=== PATIENT | female | born 1995 | race Caucasian/White ===

== ENCOUNTER 2022-04-28 11:46 | Outpatient (CLI) | payer OTHER, SELFPAY ==
[2022-04-30 23:47] LABS: Prolactin 5.4 ng/mL (2.8-29.2)
[2022-05-01 03:45] LABS: Follicle Stimulating Hormone 4.7 IU/L
== END 2022-04-28 11:47 | disposition home or self-care (01) ==
PROVIDERS: Visit Provider Physician Assistant
DX: N91.2 Amenorrhea, unspecified (principal)
CPT/HCPCS: 83001; 84146; 84443

== ENCOUNTER 2022-04-30 06:58 | Outpatient (CLI) | payer OTHER, SELFPAY ==
--- NOTE | 2022-04-30 07:15 | CRLHL7_ITS ---
For Patients: As a result of the Century Cures Act, medical imaging exams and procedure reports are released immediately into your electronic medical record. You may view this report before your referring provider. If you have questions, please contact your health care provider. INDICATION: amenorrhea COMPARISON: none TECHNIQUE: 2D timmons scale and color Doppler images were acquired of the pelvis using a transabdominal and transvaginal approach. FINDINGS: Sonographic images demonstrate a normal size and smooth outer contour of the uterus. Uterus measures 7.6 cm in length by 3.5 cm in AP diameter by 5.0 cm in transverse dimension. The myometrium has a normal uniform echotexture. The endometrial lining measures 13 mm in composite thickness. The right ovary measures 5.2 x 2.4 x 2.1 cm in size and the left ovary measures 5.4 x 2.1 x 2.1 cm. Right ovarian volume 13.6 cc. Left ovarian volume 12.4 cc. Multiple ovarian follicles are present bilaterally. The ovaries demonstrate normal arterial and venous blood flow on color Doppler analysis. There are no suspicious fluid collections within the cul-de-sac. IMPRESSION: Endometrial thickness 13 millimeters. Numerous ovarian follicles bilaterally with mildly increased ovarian volumes could suggest polycystic ovarian syndrome. Dictated by Seth Morocho MD @ 04/30/2022 8:39:15 AM (Electronically Signed)
== END 2022-04-30 06:59 | disposition home or self-care (01) ==
PROVIDERS: Visit Provider Physician Assistant
DX: N91.2 Amenorrhea, unspecified (principal); R93.89 Abnormal findings on diagnostic imaging of other specified body structures; N83.02 Follicular cyst of left ovary; N83.01 Follicular cyst of right ovary
CPT/HCPCS: 76830; 76856

== ENCOUNTER 2022-06-15 08:55 | Outpatient (CLI) | payer OTHER, SELFPAY ==
[2022-06-15 12:35] LABS: HCG Quantitative* 28.36 mIU/mL
== END 2022-06-15 08:56 | disposition home or self-care (01) ==
PROVIDERS: Visit Provider Advanced Practice Midwife
DX: O20.9 Hemorrhage in early pregnancy, unspecified (principal)
CPT/HCPCS: 84702; 86850

== ENCOUNTER 2022-06-17 16:29 | Outpatient (CLI) | payer OTHER, SELFPAY ==
[2022-06-17 10:43] LABS: HCG Quantitative* 87.31 mIU/mL
== END 2022-06-17 16:30 | disposition home or self-care (01) ==
PROVIDERS: Visit Provider Advanced Practice Midwife
DX: O20.9 Hemorrhage in early pregnancy, unspecified (principal)
CPT/HCPCS: 84702

== ENCOUNTER 2022-06-18 15:51 | Outpatient (CLI) | payer OTHER, SELFPAY ==
--- NOTE | 2022-06-18 16:00 | CRLHL7_ITS ---
For Patients: As a result of the Century Cures Act, medical imaging exams and procedure reports are released immediately into your electronic medical record. You may view this report before your referring provider. If you have questions, please contact your health care provider. INDICATION: Vaginal bleeding, normal HCG rise, rule out ectopic. LMP 05/19/2022. COMPARISON: Pelvic ultrasound 04/30/2022. TECHNIQUE: 2D timmons scale and color Doppler images were acquired of the pelvis using a transvaginal approach. FINDINGS: Sonographic images demonstrate a normal size and smooth outer contour of the uterus. The uterus is anteverted in position. The uterus measures 6.8 cm in length by 3.3 cm in AP diameter by 5.3 cm in transverse dimension. The myometrium has uniform echotexture. The endometrial lining measures 10 mm in composite thickness. No intrauterine gestational sac identified. The right ovary measures 3.9 x 1.7 x 2.9 cm in size and the left ovary measures 5.7 x 2.1 x 2.9 cm in size. Multiple small follicles in both ovaries. No suspicious adnexal mass. Trace free fluid in the pelvic cul-de-sac is likely physiologic. IMPRESSION: 1. No intrauterine gestational sac or suspicious adnexal mass. Correlate with serum beta HCG levels and follow-up imaging as clinically indicated. 2. Multiple small follicles in both ovaries. Exam otherwise unremarkable. Dictated by Tamra Multani MD @ 06/19/2022 2:35:01 AM (Electronically Signed)
== END 2022-06-18 15:52 | disposition home or self-care (01) ==
LOC: US 15:52
PROVIDERS: Visit Provider Advanced Practice Midwife
DX: N93.9 Abnormal uterine and vaginal bleeding, unspecified (principal); N83.02 Follicular cyst of left ovary; N83.01 Follicular cyst of right ovary
CPT/HCPCS: 76817

== ENCOUNTER 2022-11-06 12:45 | Outpatient (CLI) | payer OTHER, SELFPAY ==
--- NOTE | 2022-11-06 13:00 | CRLHL7_ITS ---
For Patients: As a result of the Century Cures Act, medical imaging exams and procedure reports are released immediately into your electronic medical record. You may view this report before your referring provider. If you have questions, please contact your health care provider. INDICATION: Dating and viability. LMP 09/10/2022. COMPARISON: None. TECHNIQUE: Real-time timmons-scale imaging of the pelvis was performed. FINDINGS: Sonographic imaging demonstrates a single living intrauterine gestation. The embryo has a regular cardiac rate measuring 168 beats per minute. The embryo`s crown-rump length measurement of 1.8 cm corresponds to a gestational age of 8 weeks 2 days with a sonographic due date of 06/16/2023. There is a normal-appearing yolk sac. The placenta has not yet developed. There is a 2.2 x 0.9 x 2.3 cm subchorionic hemorrhage in the left uterine fundus. The right ovary measures 4.4 x 1.9 x 3.3 cm and the left ovary measures 3.3 x 1.9 x 2.1 cm. There is a 2.4 x 1.8 x 2.1 cm isoechoic lesion in the right ovary which may represent a corpus luteum or hemorrhagic cyst. No free fluid in the cul-de-sac. IMPRESSION: 1. Single living intrauterine gestation with crown rump length 1.8 cm which corresponds to a gestational age of 8 weeks 2 days with a sonographic due date of 06/16/2023. 2. The clinical gestational age by LMP is 8 weeks 1 day. 3. Small to moderate subchorionic hemorrhage in the left uterine fundus. 4. Small amount of fluid in the lower uterine segment near the internal os. No definite cervical funneling. Dictated by Tamra Multani MD @ 11/07/2022 8:43:14 PM (Electronically Signed)
== END 2022-11-06 12:46 | disposition home or self-care (01) ==
PROVIDERS: Visit Provider Registered Nurse
DX: Z34.91 Encounter for supervision of normal pregnancy, unspecified, first trimester (principal); O20.9 Hemorrhage in early pregnancy, unspecified; Z3A.08 8 weeks gestation of pregnancy
CPT/HCPCS: 76817; 86592; 86703; 86762; 86787; 86803; 86850; 86900; 86901; 87086; 87340; 87491; 87591

== ENCOUNTER 2022-11-07 10:26 | Emergency (ER) | payer OTHER, SELFPAY ==
[2022-11-07 10:35] VITALS: BP 132/81; PULSE 72; RESP 16; TEMP 36.9; O2SAT 99; BMI 30.9
--- NOTE | 2022-11-07 11:05 | ED.GENADULT ---
HPI - General Adult General Chief complaint: OB/Uterine Contractions Stated complaint: 8 wks , bleeding Time Seen by Provider: 11/07/22 10:52 History of Present Illness HPI narrative: This 27-year-old female is 8 weeks with her 3rd . She has a 43-bfien-vbc child and then had a miscarriage last fall. She comes in today because she reports some light spotting and very mild cramping. She states that she is feeling well otherwise. She had an ultrasound for her 1st OB appointment yesterday. Related Data Home Medications Medication Instructions Recorded Confirmed docosahexaenoic acid 200 mg mg PO 04/28/22 09/16/22 capsule ( DHA) Allergies Allergy/AdvReac Type Severity Reaction Status Date / Time No Known Allergies Allergy Unknown Verified 11/07/22 10:39 Review of Systems Status of ROS: Reports: 10 or more systems reviewed and unremarkable except as noted in History and below Narrative: Constitutional: No fevers, no weight gain or loss. Eyes: No discharge. No vision changes. HENT: No congestion, no sore throat, no ear pain. Cardiovascular: No chest pain, no palpitations. Respiratory: No shortness of breath, no wheezes, no cough. Gastrointestinal: No vomiting, no diarrhea. Mild abdominal cramping. Genitourinary: No dysuria, no hematuria. Vaginal spotting. Musculoskeletal: Normal range of motion. Skin: No rashes, no pruritis. Neurological: No dizziness, weakness, sensory change, speech change. Endo/Heme/Allergies: No bruising or bleeding. No polydipsia. Pysch: no suicidality, no anxiety, no insomnia. All other systems reviewed and are negative. 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 HEENT: Normocephalic, atraumatic. Neck: Normal range of motion. Nontender. Supple. Heart: Regular. No murmurs. Normal rate. Intact distal pulses. Lungs: Clear to auscultation. No chest discomfort. No wheezes, rhonchi, or rales. Abdomen: Normal bowel sounds. Nontender. No rebound tenderness. Genitalia: Deferred. Back: No midline tenderness. Normal range of motion. Extremities: Normal range of motion. No injury. Skin: Intact. No rash. Warm. No erythema or pallor. Neurologic: No altered sensation. No weakness. Alert and oriented. Psychiatric: No suicidality. No anxiety or depression. No insomnia. Nursing notes and vitals signs are reviewed. Const: Vital Signs, click to edit/add: Vital Signs - 24 hr 11/07/22 10:35 Temperature 98.5 F Pulse Rate [Left P ulse Oximeter] 72 Respiratory Rate 16 Blood Pressure [Ri ght Upper Arm] 132/81 Pulse Oximetry 99 Oxygen Delivery Me thod Room Air Course Vital Signs Vital signs: Initial Vital Signs Temperature 98.5 F 11/07/22 10:35 Temperature Source Temporal Artery Scan 11/07/22 10:35 Pulse Rate 72 11/07/22 10:35 Respiratory Rate 16 11/07/22 10:35 Blood Pressure 132/81 11/07/22 10:35 Blood Pressure Mean 98 11/07/22 10:35 Blood Pressure Position Sitting 11/07/22 10:35 Pulse Oximetry 99 11/07/22 10:35 Oxygen Delivery Method 11/07/22 10:35 Vital Signs Temperature 98.5 F 11/07/22 10:35 Pulse Rate 72 11/07/22 10:35 Respiratory Rate 16 11/07/22 10:35 Blood Pressure 132/81 11/07/22 10:35 Pulse Oximetry 99 11/07/22 10:35 Oxygen Delivery Method 11/07/22 10:35 Temperature 98.5 F 11/07/22 10:35 Pulse Rate 72 11/07/22 10:35 Respiratory Rate 16 11/07/22 10:35 Blood Pressure 132/81 11/07/22 10:35 Pulse Oximetry 99 11/07/22 10:35 Oxygen Delivery Method 11/07/22 10:35 Medical Decision Making MDM Narrative Medical decision making narrative: This patient comes in with light spotting and some mild cramping. She states that she has had a miscarriage and understands that these symptoms are not anywhere typical of an obvious miscarriage. She is most likely having some first-trimester spotting. She states that she is Rh negative so an order is placed for RhoGAM. I did use bedside ultrasound to at her by transabdominal view. There is clearly an intra uterine . I was able also to see a heartbeat. This was very reassuring to the patient. Discharge Plan Discharge Clinical Impression: First trimester Patient Disposition: Home, Self-Care Condition: Unchanged Additional Instructions: Continue current plans. Return if worsening symptoms happen. Follow up with MD otherwise as needed. Prescriptions: No Action DHA 200 mg capsule PO Follow Up/Referrals: Provider,Not a Local [Primary Care Provider] - Stand Alone Forms: [employer] Info Instructions Procedures Ultrasound Other exam #1: Anatomical areas examined: First trimester . Indications: Vaginal spotting and mild cramping. Description/findings: Intrauterine . Heartbeat is faintly detected. Impression: Normal 1st trimester intrauterine .
[2022-11-07 12:09] VITALS: BP 113/72; PULSE 69; RESP 18; O2SAT 99
== END 2022-11-07 12:10 | disposition home or self-care (01) ==
PROVIDERS: Emergency Provider Emergency Medicine Emergency Medical Services
DX: O20.9 Hemorrhage in early pregnancy, unspecified (principal); Z3A.08 8 weeks gestation of pregnancy
CPT/HCPCS: 36415; 76815; 85461; 99284; J2791

== ENCOUNTER 2023-01-28 08:24 | Outpatient (CLI) | payer OTHER, SELFPAY ==
--- NOTE | 2023-01-28 08:45 | CRLHL7_ITS ---
For Patients: As a result of the Century Cures Act, medical imaging exams and procedure reports are released immediately into your electronic medical record. You may view this report before your referring provider. If you have questions, please contact your health care provider. INDICATION: Evaluate anatomy. COMPARISON: 11/06/2022 TECHNIQUE: Real time timmons scale imaging of the fetus was performed as well as color Doppler analysis of the umbilical vessels. FINDINGS: Sonographic imaging demonstrates a single living intrauterine gestation. Fetus demonstrates a regular cardiac rate of 137 beats per minute. Fetus has a variable position. The placenta lies anteriorly without evidence of placenta previa. The edge of the placenta is located 2.8 cm from the internal cervical os. Amniotic fluid volume appears normal. Single deepest vertical pocket: 5.5 cm. The cervix is closed and measures 4.2 cm in length. The composite ultrasound gestational age is calculated at 20 weeks 4 days with an estimated sonographic due date of 06/13/2023. The estimated weight is 378 grams which lies at the 87th %. The following biometric measurements were obtained: Biparietal diameter: 4.6 cm/20 weeks 0 days 49th% Head circumference: 17.9 cm/20 weeks 2 days 57th% Abdominal circumference: 16.3 cm/21 weeks 3 days 85th% Femur length: 3.3 cm/20 weeks 2 days 54th% The HC/AC ratio measures: 1.10 range (1.07-1.25) On anatomic survey, there is a normal appearance of the cerebral ventricles, cavum septi pellucidi, cisterna magna and cerebellum. The nose, lips, and facial profile appear normal. The cervical, thoracic and lumbar spine are well visualized and appear normal. There is a normal four-chamber heart view and the left and right ventricular outflow tracts appear normal. The diaphragm and stomach appear normal. The kidneys and bladder also appear normal. There is a normal three-vessel cord and cord insertion site. The four extremities appear normal. IMPRESSION: Normal OB ultrasound exam with concordance of clinical and sonographic dating. No intrinsic abnormalities noted on anatomic survey. Dictated by Seth Morocho MD @ 01/28/2023 11:16:39 AM (Electronically Signed)
== END 2023-01-28 08:25 | disposition home or self-care (01) ==
PROVIDERS: Visit Provider Physician Assistant
DX: Z34.92 Encounter for supervision of normal pregnancy, unspecified, second trimester (principal); Z3A.20 20 weeks gestation of pregnancy
CPT/HCPCS: 76805

== ENCOUNTER 2023-03-26 09:10 | Outpatient (CLI) | payer OTHER, SELFPAY | END 2023-03-26 09:11 | disposition home or self-care (01) | PROVIDERS: Visit Provider Obstetrics & Gynecology | DX: O26.899 Other specified pregnancy related conditions, unspecified trimester (principal); Z67.91 Unspecified blood type, Rh negative; Z3A.28 28 weeks gestation of pregnancy | CPT/HCPCS: 86592; 86850; J2791 ==

== ENCOUNTER 2023-04-08 14:46 | Outpatient (CLI) | payer OTHER, SELFPAY ==
[2023-04-08] VITALS (8 sets, daily range): BP systolic 121; BP diastolic 70; PULSE 100–112; TEMP 37.3; O2SAT 94–96
--- NOTE | 2023-04-08 15:48 | CRLHL7_ITS ---
For Patients: As a result of the Cures Act, medical imaging exams and procedure reports are released immediately into your electronic medical record. You may view this report before your referring provider. If you have questions, please contact your health care provider. INDICATION: Abdominal pain. Nausea. COMPARISON: Ob ultrasound from 01/28/2023 FINDINGS: Transabdominal examination of the is performed. A single intrauterine gestation is seen in breech presentation with regular cardiac activity at 157 beats per minute. The placenta is anterior and is free of the cervical os. The placental grade is 0 and the amniotic fluid volume is increased, consistent polyhydramnios. The DVP is elevated at 9.8 cm. The JOSÉ MIGUEL is also elevated at 28.6 cm. The biophysical profile score is 8/8 with no points off. IMPRESSION: Single intrauterine gestation in breech presentation with regular cardiac activity. New polyhydramnios with elevation of both the DP and JOSÉ MIGUEL. Normal biophysical profile score of 8/8. Dictated by Josue Lamb MD @ 04/08/2023 5:32:52 PM (Electronically Signed)
[2023-04-08] MEDS: ACETAMINOPHEN 500 MG TABLET 1000 MG PO (16:01)
[2023-04-08] MEDS: ONDANSETRON ODT 4 MG TAB PO (16:02)
[2023-04-08] MEDS: MAG HYDROX/ALUMINUM HYD/SIMETH 30 ML ORAL.SUSP PO (16:02)
--- NOTE | 2023-04-08 17:33 | PM.OBLDTN ---
OB - Triage/Final Diagnosis Visit Information Time Seen by Provider: 04:50 Date Seen: 04/08/23 Date of evaluation: 04/08/23 Narrative: HPI: Linda is a 27 year old 3 para 1011 at 30 and 0/7 weeks gestation by last menstrual period consistent with a 1st trimester ultrasound, who presents with viral syndrome symptoms including fatigue, body aches, nausea without vomiting, elevated temperature that started approximately 4 days ago. The nausea and body aches did not occur her until this morning. She presented to the center for evaluation due to decreased movement. She has not eaten anything today and has only been able to drink small sips of water. She has not had any episodes of emesis. Once she got to the center her baby became much more active. She received Zofran 4 mg ODT, 1 tbsp of Maalox and to tablets of extra-strength Tylenol. She was sent to ultrasound for a biophysical profile because the baby was so active that it was difficult to get an accurate heart rate tracing. BPP: Breech, S DP 10.2 cm, JOSÉ MIGUEL 28.6 cm = new onset mild polyhydramnios. Her 1 hour GTT was 106 on 03/26/2023. She had a normal survey at her 20 week ultrasound. A referral to [facility] physicians was placed. I reviewed recommendations for weekly BPP until delivery for polyhydramnios. There is a broad differential for what can cause polyhydramnios and a few of these were reviewed with the patient today. In terms of doing genetic evaluation and/or torch titers, I will await the [facility] recommendations before doing these tests. The patient states that she felt much better after the dose of Zofran. She would like some Zofran sent to her pharmacy so that she can use at home if needed. She has her next visit appointment on Wednesday04/12/[address] Perdomo and I ordered a BPP to be done prior to that appointment. Linda should get a phone call tomorrow morning to help her get this scheduled. Will even know with my veneer sample maker to help her with this. 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
--- NOTE | 2023-04-09 20:12 | PC.OBNST ---
NST Note NST Note Start: 04/08/23 15:03 Freq: ONCE Status: Discharge Protocol: Document 04/08/23 17:30 SD (Rec: 04/09/23 20:12 SD [id number]) NST Note 3 Para (# of births) 1 EDC 06/17/23 Gestational Age In Weeks & Days 30 Weeks & 1 Days Patient Presented with Complaint(s) of Pain,Nausea and vomiting,Other If Pain, describe location Body aches Other Complaints Chills Reactive Yes Appropriate for Gestational Age Yes RN Tayler RN Date 04/08/23 Reactive Yes Appropriate for Gestational Age Yes FABIANA Jnae RN Date 04/08/23 OB NST charge Yes Complete NST Note via Write Note Yes The provider's electronic signature indicates the NST is reactive/appropriate for gestational age. *Note to provider: If an addendum is required, open the patient's chart and click on the note under the Nurse/Allied Health tab.
== END 2023-04-08 17:20 | disposition home or self-care (01) ==
LOC: OB OUT 14:47 → OB 14:47
PROVIDERS: Visit Provider Obstetrics & Gynecology
DX: O21.2 Late vomiting of pregnancy (principal); Z3A.30 30 weeks gestation of pregnancy
CPT/HCPCS: 59025; 76819; 99213; A9270

== ENCOUNTER 2023-04-14 10:36 | Outpatient (CLI) | payer OTHER, SELFPAY | END 2023-04-14 10:37 | disposition home or self-care (01) | PROVIDERS: Visit Provider Obstetrics & Gynecology | DX: O40.3XX0 Polyhydramnios, third trimester, not applicable or unspecified (principal); Z3A.30 30 weeks gestation of pregnancy | CPT/HCPCS: 87040 ==

== ENCOUNTER 2023-04-20 07:58 | Outpatient (CLI) | payer OTHER, SELFPAY ==
--- NOTE | 2023-04-20 08:15 | CRLHL7_ITS ---
For Patients: As a result of the Century Cures Act, medical imaging exams and procedure reports are released immediately into your electronic medical record. You may view this report before your referring provider. If you have questions, please contact your health care provider. INDICATION: POLYHYDRAMNIOS COMPARISON: 04/08/2023 TECHNIQUE: Real time timmons scale imaging of the fetus was performed. Without non-stress testing. FINDINGS: Sonographic imaging demonstrates a single living intrauterine gestation. Fetus demonstrates a regular cardiac rate of 137 beats per minute. Fetus has a vertex position. The amniotic fluid volume appears increased and there is a single deepest pocket measurement of 8.8 cm. JOSÉ MIGUEL 27.7 cm. The fetus was active and demonstrated normal breathing movements. There was normal flexion and extension of the trunk and extremities. IMPRESSION: Normal biophysical profile score of 8 out of 8. Polyhydramnios. JOSÉ MIGUEL 27.7 cm. Dictated by Seth Morocho MD @ 04/20/2023 10:43:37 AM (Electronically Signed)
== END 2023-04-20 07:59 | disposition home or self-care (01) ==
LOC: US 07:59
PROVIDERS: Visit Provider Obstetrics & Gynecology
DX: O40.3XX0 Polyhydramnios, third trimester, not applicable or unspecified (principal)
CPT/HCPCS: 76819

== ENCOUNTER 2023-05-17 08:37 | Outpatient (CLI) | payer OTHER, SELFPAY ==
--- NOTE | 2023-05-17 09:15 | CRLHL7_ITS ---
For Patients: As a result of the Century Cures Act, medical imaging exams and procedure reports are released immediately into your electronic medical record. You may view this report before your referring provider. If you have questions, please contact your health care provider. INDICATION: Polyhydramnios. TECHNIQUE : Technique real-time timmons scale imaging of the fetus was performed. Without nonstress testing. Comparison : April 20, 2023. April 08, 2023. FINDINGS : Sonographic imaging demonstrates a single living intrauterine gestation. Vertex presentation. Anterior placenta. heart rate 143 beats per minute. The amniotic fluid volume appears increased and there is an amniotic fluid volume index of 21 cm, most recently 27.7 cm. The fetus was active and demonstrated normal breathing movements. There was normal flexion and extension of the trunk and extremities. IMPRESSION: 1. Normal biophysical profile pulse score of 8/8. 2. Polyhydramnios. Amniotic fluid volume index 21 cm, previously 27.7 cm. Dictated by Shawn Cage MD @ 05/17/2023 10:12:17 AM (Electronically Signed)
== END 2023-05-17 08:38 | disposition home or self-care (01) ==
PROVIDERS: Visit Provider Obstetrics & Gynecology
DX: O40.3XX0 Polyhydramnios, third trimester, not applicable or unspecified (principal)
CPT/HCPCS: 76819; 87081; 87653

== ENCOUNTER 2023-06-04 07:09 | Outpatient (CLI) | payer OTHER, SELFPAY ==
--- NOTE | 2023-06-04 07:15 | CRLHL7_ITS ---
For Patients: As a result of the Century Cures Act, medical imaging exams and procedure reports are released immediately into your electronic medical record. You may view this report before your referring provider. If you have questions, please contact your health care provider. INDICATION: POLYHYDRAMNIOS COMPARISON: 05/17/2023 TECHNIQUE: Real time timmons scale imaging of the fetus was performed. Without non-stress testing. FINDINGS: Sonographic imaging demonstrates a single living intrauterine gestation. Fetus demonstrates a regular cardiac rate of 126 beats per minute. Fetus has a vertex position. The amniotic fluid volume appears normal and there is a single deepest pocket measurement of 6.0 cm. The fetus was active and demonstrated normal breathing movements. There was normal flexion and extension of the trunk and extremities. IMPRESSION: Normal biophysical profile score of 8 out of 8. Dictated by Seth Morocho MD @ 06/04/2023 10:39:03 AM (Electronically Signed)
== END 2023-06-04 07:10 | disposition home or self-care (01) ==
LOC: US 07:10
PROVIDERS: Visit Provider Obstetrics & Gynecology
DX: O40.3XX0 Polyhydramnios, third trimester, not applicable or unspecified (principal)
CPT/HCPCS: 76819

== ENCOUNTER 2023-06-10 15:47 | Inpatient (IN) | payer OTHER, SELFPAY ==
[2023-06-10 16:06] VITALS: PULSE 88; PULSE 89; O2SAT 94; O2SAT 96
[2023-06-10 16:10] VITALS: BP 133/82; PULSE 90
[2023-06-10 16:11] VITALS: PULSE 82; O2SAT 96
[2023-06-10 16:20] VITALS: BMI 35.5
[2023-06-10 16:24] VITALS: TEMP 37
[2023-06-10 17:35] LABS: Basophils Absolute Auto 0.02 K/uL (0.00-0.30); Basophils Percent Auto 0.2 % (0.0-3.0); Eosinophils Absolute Auto 0.05 K/uL (0.00-0.50); Eosinophils Percent Auto 0.6 % (0.0-7.0); Hematocrit 35.4 % (33.0-51.0); Hemoglobin* 11.5 gm/dL (12.0-16.0); Immature Granulocytes Abs Auto 0.08 K/uL (0.00-0.30); Immature Granulocytes Pct Auto 0.9 %; Lymphocytes Percent Auto 19.6 % (20-44); Mean Corpuscular HGB Conc 33 gm/dL (32-36); Mean Corpuscular Hemoglobin 27 pg (26-34); Mean Corpuscular Volume 82 fL (80-100); Monocytes Percent Auto 7.6 % (0.0-11.0); Neutrophils Absolute Auto 6.44 K/uL (1.7-7.0); Neutrophils Percent Auto 71.1 % (42.0-72.0); Platelet Count* 200 K/uL (140-440); RDW Coefficient of Variation % 13.4 % (11.5-15.5); Red Blood Count 4.34 m/uL (4.00-5.20); White Blood Count* 9.05 K/uL (4.50-11.00)
[2023-06-10 17:38] LABS: Slide Review Reflex No
[2023-06-10] MEDS: miSOPROStoL 25 MCG/0.25 TABLET VAGINAL ×2 (17:49→22:09)
[2023-06-10 21:57] VITALS: BP 132/80; PULSE 77; RESP 16; TEMP 36.6
[2023-06-11] VITALS (53 sets, daily range): BP systolic 91–154; BP diastolic 46–115; PULSE 49–108; RESP 6–18; TEMP 36.6–37.1; O2SAT 92–100
[2023-06-11] MEDS: miSOPROStoL 25 MCG/0.25 TABLET VAGINAL (02:09)
[2023-06-11] MEDS: CALCIUM CARBONATE 500 MG CHEW PO (02:11)
[2023-06-11] MEDS: LACTATED RINGERS 1000 ML 1,000 ML 1200 ML IV ×2 (05:25→06:18)
[2023-06-11] MEDS: PHENYLEPHRINE 100 MCG/ML SYRINGE IVP ×4 (06:04→06:24)
[2023-06-11] MEDS: ONDANSETRON 2 MG/ML inj 4 MG IV (06:07)
[2023-06-11] MEDS: SODIUM CHLORIDE 0.9 % (FLUSH) 10 ML SYRINGE IVF (06:08)
--- NOTE | 2023-06-11 07:14 | P.ANBPRC_ITS ---
[facility] [place] (Updated 04/14/23 @ 10:28 by Lacey Zhao MD) Polyhydramnios affecting in third trimester ?O40.3XX0 - Polyhydramnios, third trimester, not applicable or unspecified (ICD-10) Secondary amenorrhea ?N91.1 - Secondary amenorrhea (ICD-10) Anxiety ?F41.9 - Anxiety disorder, unspecified (ICD-10) Normal spontaneous vaginal delivery ?O80 - Encounter for full-term uncomplicated delivery (ICD-10) History of ovarian cyst (2010) ?Z87.42 - Personal history of other diseases of the female genital tract (ICD-10) Surgical History Hx of cholecystectomy ?Z90.49 - Acquired absence of other specified parts of digestive tract (ICD- 10) History of tonsillectomy and adenoidectomy (1998) ?Z90.89 - Acquired absence of other organs (ICD-10) History of myringotomy ?Z98.890 - Other specified postprocedural states (ICD-10) Family History Paternal Grandfather Heart disease Father High blood pressure 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: , 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, 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, 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, 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 What is your current living situation?: I presently have a place to live Problems where you live: no known problems In the past 12 months, utilities in danger of being shut off: no In the past 12 mos, have been you worried that your food would run out before you had money to buy more?: never true In the past 12 mos, the food you bought just didn't last and you didn't have money to buy more?: never true Smoking Status: Never smoker How often do you have a drink containing alcohol: never AUDIT-C Alcohol total score: 0 Non-prescribed substance use: denies use How often does anyone, including family, friends and others, physically hurt you : never How often does anyone, including family, friends and others, insult or talk down to you: never How often does anyone, including family, friends and others, threaten you with harm: never How often does anyone, including family, friends and others, scream or curse at you: never Little interest or pleasure in doing things: not at all Feeling down, depressed, or hopeless: not at all Meds Home Medications and Allergies Home Medications Medication Instructions Recorded Confirmed Type docosahexaenoic acid 200 mg 200 mg PO DAILY PRN 04/28/22 06/10/23 History capsule ( DHA) calcium carbonate 200 mg calcium 200 mg PO BID 01/28/23 06/10/23 History (500 mg) chewable tablet (Tums) Allergies Allergy/AdvReac Type Severity Reaction Status Date / Time No Known Allergies Allergy Unknown Verified 06/03/23 15:38 Results Labs Labs: Laboratory Results - last 24 hr 06/10/23 17:24 WBC 9.05 RBC 4.34 Hgb 11.5 L Hct 35.4 MCV 82 MCH 27 MCHC 33 RDW Coeff of Shawn 13.4 Plt Count 200 Neut % (Auto) 71.1 Lymph % (Auto) 19.6 L [place] % (Auto) 7.6 Eos % (Auto) 0.6 Baso % (Auto) 0.2 Neut # (Auto) 6.44 Lymph # (Auto) 1.80 [place] # (Auto) 0.70 Eos # (Auto) 0.05 Baso # (Auto) 0.02 Abs Immat Gran (auto) 0.08 Imm/Tot Granulo (auto) 0.9 Blood Type A Negative Antibody Screen POSITIVE Vital Signs Vital Signs: Last Vital Signs Temp 98.3 F 06/11/23 05:41 Pulse 80 06/11/23 06:59 Resp 18 06/11/23 05:41 BP 125/80 06/11/23 06:59 Pulse Ox 99 06/11/23 06:31 Weight: 93.894 kg Height: 162.56 cm Anesthesia Procedures Epidural Insertion Patient Location: OB Start Time: 05:40 Stop Time: 06:10 Start Date: 06/11/23 Stop Date: 06/11/23 Reason for Block: procedure for pain Patient Position: sitting Performed By: Kelsie Daily Preanesthetic Checklist: IV checked, risks and benefits discussed, monitors and equipment checked, pre-op evaluation, timeout performed and anesthesia consent Prep: chlorhexidine gluconate Monitoring: blood pressure monitoring, continuous pulse oximetry and heart rate Approach: midline Vertebral Space: lumbar (1-5) Epidural Technique: FRANKY saline Needle Type: Tuohy needle Injection Technique: continuous catheter (continuous catheter) Needle gauge: 17 Needle Length (cm): 10 cm Needle Insertion Depth (cm): 8 Catheter Gauge: 19 Catheter Type: multi-orifice Catheter at skin depth (cm): 15 Test Dose Result: negative and lidocaine 1.5% with epinephrine 1 to 200,000 Events: cerebrospinal fluid
[2023-06-11] MEDS: LACTATED RINGERS 1000 ML 1,000 ML 125 ML IV (07:21)
[2023-06-11] MEDS: LIDOCAINE 2% (PF) 5 ML VIAL EPIDURAL (07:27)
[2023-06-11] MEDS: OXYTOCIN 30 unit/500 ML in NS 30 UNIT/500 ML BAG 300 UNIT IVPB (08:08)
--- NOTE | 2023-06-11 08:28 | W.PM.OBVAGDE ---
OB Procedure Vag Delivery Mother Details Mother Details: The patient is a 27 year-old, 3, Para 1, admitted on 06/10/23 at 39 1/7 Days gestation. : 3 Para: 2 Weeks Gestation: 39.1 Admission Date: 06/10/23 Additional Details Amniotic Membrane Status: SROM Amniotic Membrane Rupture Date: 06/11/23 Amniotic Membrane Rupture Time: 06:31 Amniotic Membrane Fluid Description: Clear Analgesia/Anesthesia Type: Spinal Waterbirth: No Pitcoin: No Intrapartal Events: Labor Induction Induction Method: per misoprostol protocol Labor Onset: 05:08 Complete: 06:43 Pushin:09 Heart: heart tones during second stage were category 2. Deep decelerations down to the 70s while pushing with slow recovery, but did have acceleration with scalp stimulation. Delivery Details Delivery Date: 06/11/23 Delivery Time: 08:05 Route of delivery: Infant Gender: Male Viability: Alive; Heart Rate Present Position at Delivery: OA Delivery Details: Delivered over intact perineum via spontaneous vaginal delivery. Nuchal cord identified and as planned, clamped and cut at perineum. Infant was placed on maternal abdomen. Nose and mouth were bulb suctioned.? weight pending. 1 Minute Interval Total Score: 7 5 Minute Interval Total Score: 9 Additional Details Shoulder Dystocia: No Placenta Delivery Time: 08:10 Placental Delivery Description: Spontaneous Delivery repair: Vicryl Procedure Done: Global Blood Loss: 200 Laceration: Vaginal - 1st Degree Episiotomy Description: None Blood Loss Measurement Type: QBL Bakri Used: No Sponge/Need Count Correct: Yes Cord Vessel Description: 3 Vessels and Nuchal Cord (clamped and cut at perineum.) Event Summary Status: Mother and were stable after delivery. Disposition: floor
[2023-06-11] MEDS: ACETAMINOPHEN 500 MG TABLET 1000 MG PO ×2 (09:16→16:10)
[2023-06-11 11:28] LABS: Hematocrit 35.1 % (33.0-51.0); Hemoglobin* 11.4 gm/dL (12.0-16.0); Mean Corpuscular HGB Conc 33 gm/dL (32-36); Mean Corpuscular Hemoglobin 27 pg (26-34); Mean Corpuscular Volume 81 fL (80-100); Platelet Count* 189 K/uL (140-440); Red Blood Count 4.31 m/uL (4.00-5.20); White Blood Count* 13.87 K/uL (4.50-11.00)
[2023-06-11 11:31] LABS: Slide Review Reflex No
[2023-06-11 11:44] LABS: Aspartate Amino Transferase* 38 U/L (12-35); Creatinine* 0.5 mg/dL (0.5-1.5); Est. Creatinine Clearance* 147.23; Estimated Glomerular Filt Rate 133 ml/min
[2023-06-11 11:45] LABS: Alanine Aminotransferase* 27 U/L (4-35); Blood Urea Nitrogen* 9 mg/dL (5-24)
[2023-06-11] MEDS: IBUPROFEN 600 MG TABLET PO ×2 (12:46→19:59)
[2023-06-12 00:20] VITALS: BP 115/72; PULSE 64; RESP 17; TEMP 36.8
[2023-06-12] MEDS: ACETAMINOPHEN 500 MG TABLET 1000 MG PO (00:36)
--- NOTE | 2023-06-12 00:46 | PC.NURSE ---
At midnight assessment, epidural catheter dressing was found to be rolled up, exposing catheter insertion site. RN asked patient if she was feeling any numbness or tingling in lower extremities; negative. RN promptly placed Tegaderm dressing over site and reported finding to rehabilitation specialist.
[2023-06-12 04:05] VITALS: BP 118/79; PULSE 67; RESP 16; TEMP 36.6
--- NOTE | 2023-06-12 07:25 | P.OBPN_ITS ---
OB - PN:Subj Subjective Date Seen: 06/12/23 Interval history: Linda is a 27-year-old G3 now P2 0-0-1-2 woman who is status post normal spontaneous vaginal delivery at 39 weeks, 1 day's gestation on 06/11/2023. She was diagnosed with preeclampsia without severe features during her intrapar romina course. Ob problem list: : Tin. Son: Rem. Baby: Boy! 1. H/o umbilical cord avulsion immediately after first delivery. 2. H/o genital HSV Rec. prophylactic tx at 36 weeks: Valacyclovir 500mg PO BID 3. H/o anxiety. PHQ 2, PETER 1 at first OB. Not taking meds. Doing really well! 4. Possible Listeria exposure mid-February 2023: was notified of a recall for a food product she had already eaten at the end of February. Viral syndrome 04/04/23-04/11/23: Myalgias, nausea without vomiting, fatigue, headache, mildly elevated temperature (99.2? F) Blood culture ordered on 04/14/2023 to assess for possible listeriosis: NO GROWTH AFTER 48HRS. ACOG: offer blood culture if the patient develops viral symptoms w/in 2 months of exposure. Increases risk for stillbirth and listeriosis and . 5. Rh negative status. Spotting 11/07: rhogam received in ED. 6. Polyhydramnios diagnosed on 04/08/23 Center triage for viral syndrome (fatigue, nausea, body aches) and decreas ed movement: 30wk1d. BPP done b/c the fetus was so active it was difficult to trace: Breech, BPP 05/04. SDP 10.2, JOSÉ MIGUEL 28.6 04/12/23: LVL 2 [facility] : Vtx. JOSÉ MIGUEL 32.7. SDP: 11.0. EFW 1714gm, 3#12oz = 58%. Hypoplastic nasal bone. No other anomalies noted. Cell free DNA test collected. USN for EFW and BPP scheduled w/ MFM in 4 weeks (about 05/13/23) Low risk NIPT Weekly BPP ordered. Has BPP w/ EFW in 4 wks at the [facility] office. BPP on 05/17/2023: JOSÉ MIGUEL 21 cm, currently resolved. MFM ultrasound next week. Delivery at 39w0d - 39w6d IOL Consent signed with Dr. Lnidsay on 05/17, SVE around 38 weeks to decide if she needs cervical ripening. MFM appointment on 06/09: Flu: Completed COVID: Completed in boosted x1. Recommended bivalent booster. Rhogam:03/26 Tdap: 04/14/2023 Narrative: Linda feels well. She is without difficulty. She denies pain or heavy bleeding. OB - PN: Obj Exam Physical Exam: Vital signs: Temp Pulse Resp BP Pulse Ox O2 Del Method 97.9 F 67 16 118/79 97 Room Air 06/12/23 04:05 06/12/23 04:05 06/12/23 04:05 06/12/23 04:05 06/11/23 19:54 06/12/23 04:05 no elevated blood pressures since yesterday morning Narrative: General: Pleasant, no acute distress Heart: Regular rate and rhythm, no murmur or gallop Lungs: Clear to auscultation bilaterally Abdomen: Soft, nontender, fundus well below umbilicus Lower extremities: No edema or erythema OB - PN: Obj Data Labs Labs: Laboratory Results - last 24 hr 06/10/23 06/11/23 17:24 11:16 WBC 13.87 H RBC 4.31 Hgb 11.4 L Hct 35.1 MCV 81 MCH 27 MCHC 33 Plt Count 189 BUN 9 Creatinine 0.5 Estimated Creat Clear 147.23 Estimated GFR 133 AST 38 H ALT 27 Antibody Screen NEGATIVE Antibody Identification Cancelled HELLP labs pending for this morning OB - PN: A/P Delivery Assessment and Plan (1) Gestational hypertension: Status: Acute Assessment and Plan: Mild elevations of BP and AST during intrapartum course. Normotensive since early yesterday morning. I will await HELLP labs before deciding on disposition. Patient does prefer to go home if labs are normal. I think it prudent for her to check her blood pressure twice a day, and to come in early next week for a blood pressure check with clinic nurse in this case. (2) Normal spontaneous vaginal delivery: Problem details: Cord avulsion 2020 Status: Acute Assessment and Plan: Appropriate course. Plan day: 1 Comments: Disposition to be determined after labs return.
[2023-06-12 07:29] VITALS: BP 118/67; PULSE 75; RESP 16; TEMP 37; O2SAT 98
[2023-06-12 07:39] VITALS: TEMP 37
[2023-06-12] MEDS: IBUPROFEN 600 MG TABLET PO (07:39)
[2023-06-12 07:59] LABS: Hematocrit 32.7 % (33.0-51.0); Hemoglobin* 10.6 gm/dL (12.0-16.0); Mean Corpuscular HGB Conc 32 gm/dL (32-36); Mean Corpuscular Hemoglobin 27 pg (26-34); Mean Corpuscular Volume 82 fL (80-100); Platelet Count* 198 K/uL (140-440); Red Blood Count 3.98 m/uL (4.00-5.20); Slide Review Reflex No; White Blood Count* 8.76 K/uL (4.50-11.00)
--- NOTE | 2023-06-12 08:02 | PM.OBDSVD1 ---
DS: Providers Provider Date Seen: 06/12/23 Date of admission: 06/10/23 15:47 Primary care physician: Not a Local Provider Admitting Clinician: Fidelina Osorio MD Attending Physician on discharge: Salome Perdomo MD Date of Discharge: 06/12/23 DS: Diagnosis Discharge Diagnosis (1) Normal spontaneous vaginal delivery: Status: Acute Problem details: Cord avulsion 2020, none with current delivery (2) Gestational hypertension: Status: Acute Problem details: Normotensive throughout course, on no medications (3) Lactating mother: Status: Acute Exam Narrative: Exam Narrative: normal - see progress note Const: Vital Signs, click to edit/add: Vital Signs - 24 hr 06/11/23 08:04 06/11/23 08:14 06/11/23 08:18 Temperature Pulse Rate 72 72 Pulse Rate [Right Pulse Oximeter] Respiratory Rate Blood Pressure 105/52 L 106/64 Blood Pressure [Ri ght Arm] Pulse Oximetry 94 Oxygen Delivery [facility] 06/11/23 08:24 06/11/23 08:30 06/11/23 08:36 Temperature Pulse Rate 67 73 71 Pulse Rate [Right Pulse Oximeter] Respiratory Rate 16 Blood Pressure 91/55 L 115/58 L 135/65 Blood Pressure [Ri ght Arm] Pulse Oximetry 99 95 Oxygen Delivery [facility] 06/11/23 08:39 06/11/23 08:57 06/11/23 09:15 Temperature Pulse Rate 74 61 71 Pulse Rate [Right Pulse Oximeter] Respiratory Rate 6 L 16 16 Blood Pressure 150/66 H 119/61 134/115 H Blood Pressure [Ri ght Arm] Pulse Oximetry 95 96 96 Oxygen Delivery [facility] 06/11/23 09:30 06/11/23 09:44 06/11/23 10:00 Temperature Pulse Rate 69 61 69 Pulse Rate [Right Pulse Oximeter] Respiratory Rate 16 16 16 Blood Pressure 130/62 141/78 H 124/69 Blood Pressure [Ri ght Arm] Pulse Oximetry 96 98 96 Oxygen Delivery [facility] 06/11/23 10:14 06/11/23 12:00 06/11/23 16:13 Temperature 98.1 F 98.1 F Pulse Rate 69 Pulse Rate [Right Pulse Oximeter] 73 79 Respiratory Rate 16 16 16 Blood Pressure 138/82 Blood Pressure [Ri ght Arm] 118/79 114/71 Pulse Oximetry 98 96 96 Oxygen Delivery Me thod Room Air Room Air 06/11/23 19:54 06/12/23 00:20 06/12/23 04:05 Temperature 98.7 F 98.3 F 97.9 F Pulse Rate Pulse Rate [Right Pulse Oximeter] 62 64 67 Respiratory Rate 16 17 16 Blood Pressure Blood Pressure [Ri ght Arm] 129/77 115/72 118/79 Pulse Oximetry 97 Oxygen Delivery Me thod Room Air Room Air Room Air 06/12/23 07:29 06/12/23 07:39 Temperature 98.6 F 98.6 F Pulse Rate Pulse Rate [Right Pulse Oximeter] 75 Respiratory Rate 16 Blood Pressure Blood Pressure [Ri ght Arm] 118/67 Pulse Oximetry 98 Oxygen Delivery Me thod Room Air OB - DS: Summary Hospital Course Hospital Course: Linda is a 27-year-old G3 now P2 0-0-1-2 woman who is status post normal spontaneous vaginal delivery at 39 weeks, 1 day's gestation on 06/11/2023. She was diagnosed with preeclampsia without severe features during her intrapartum course. She gave to a male infant, April. She is well. On PPD #1, after 24 hours normotensive and normal HELLP labs, other than mildly elevated AST, she was discharged to home. Ob problem list: : Tin. Son: Rem. Baby: Boy! 1. H/o umbilical cord avulsion immediately after first delivery. 2. H/o genital HSV Rec. prophylactic tx at 36 weeks: Valacyclovir 500mg PO BID 3. H/o anxiety. PHQ 2, PETER 1 at first OB. Not taking meds. Doing really well! 4. Possible Listeria exposure mid-February 2023: was notified of a recall for a food product she had already eaten at the end of February. Viral syndrome 04/04/23-04/11/23: Myalgias, nausea without vomiting, fatigue, headache, mildly elevated temperature (99.2? F) Blood culture ordered on 04/14/2023 to assess for possible listeriosis: NO GROWTH AFTER 48HRS. ACOG: offer blood culture if the patient develops viral symptoms w/in 2 months of exposure. Increases risk for stillbirth and listeriosis and . 5. Rh negative status. Spotting 11/07: rhogam received in ED. 6. Polyhydramnios diagnosed on 04/08/23 Center triage for viral syndrome (fatigue, nausea, body aches) and decreased movement: 30wk1d. BPP done b/c the fetus was so active it was difficult to trace: Breech, BPP 05/04. SDP 10.2, JOSÉ MIGUEL 28.6 04/12/23: LVL 2 [facility] MFM : Vtx. JOSÉ MIGULE 32.7. SDP: 11.0. EFW 1714gm, 3#12oz = 58%. Hypoplastic nasal bone. No other anomalies noted. Cell free DNA test collected. USN for EFW and BPP scheduled w/ MFM in 4 weeks (about 05/13/23) Low risk NIPT Weekly BPP ordered. Has BPP w/ EFW in 4 wks at the MFM office. BPP on 05/17/2023: JOSÉ MIGUEL 21 cm, currently resolved. MFM ultrasound next week. Delivery at 39w0d - 39w6d IOL Consent signed with Dr. Lindsay on 05/17, JEANETTE around 38 weeks to decide if she needs cervical ripening. MFM appointment on 06/09: Flu: Completed COVID: Completed in boosted x1. Recommended bivalent booster. Rhogam:03/26 Tdap: 04/14/2023 V[place] Infant Gender: Male Time Spent with Patient Time attestation: Total time spent providing and/or coordinating discharge services: Discharge Plan Discharge Disposition: Home, Self-Care Date of Admission: 06/10/23 15:47 Attending Provider on Discharge: Salome Perdomo Primary Care Provider: Provider,Not a Local Condition: Improved Anticipated Discharge Date/Time: 06/12/23 10:05 Discharge Medications: New docusate sodium 100 mg Capsule 100 mg PO DAILY Qty: 0 0RF acetaminophen 500 mg Tablet 1,000 mg PO Q6H PRNQty: 0 0RF ibuprofen 600 mg Tablet 600 mg PO Q6H PRNQty: 0 0RF Lanolin (HPA) 100 % Cream 1 applic topical Q1H PRNQty: 0 0RF ferrous sulfate 325 mg (65 mg iron) tablet 325 mg PO Q OTHER DAY Qty: 14 0RF Continued DHA 200 mg capsule 200 mg PO DAILY PRN calcium carbonate [Tums] 200 mg calcium (500 mg) tablet,chewable 200 mg PO BID Discontinued ondansetron 4 mg tablet,disintegrating 4 mg PO Q6H PRN (Reason: nausea and vomiting) Qty: 30 1RF valacyclovir 500 mg tablet 500 mg PO BID Qty: 60 1RF Discharge Orders: Discharge Order (Routine); Ordered 06/12/23 Ordered By: Salome Perdomo Patient Education: OB Vaginal/Breast Feeding Additional Instructions: Discharge instructions were reviewed with the patient including signs and symptoms of infection and home going medications Nothing vaginally for 6 weeks: no tampons or intercourse Do not drive while taking narcotic pain medication(s) Off Work or School for 8 weeks Symptoms to report to doctor: Bleeding that saturates more than one pad per hour Passing clots larger than the size of a golf ball Pain not relieved by prescribed medication Fever above 100.4 degrees Fahrenheit A foul vaginal odor Difficulty in emotions, mood, and functions Thoughts of hurting yourself and/or Painful, reddened area in your breast Any drainage, redness, or tenderness in your IV/epidural site Severe headache that doesn't improve after taking medications Changes in vision, including temporary loss of vision, blurred vision, and/or light sensitivity Upper abdominal pain (usually under ribs on the right side) Decrease in urination or painful, frequent urinating Chest pain Shortness of breath Tenderness or pain with redness and/swelling in the calf(s) of your leg Follow [facility] for a BP check?06/14 or 06/15 Check BP twie daily at home Call with BP greater than or equal to 150/100 Optional 2-week visit: discuss infant feeding concerns, review control options and screen for anxiety/depression. 6-week visit for an annual exam. consultation services are available to all mothers and babies for the first year after delivery.? To make an appointment, please call [phone]. Follow Up Appointments: Salome Perdomo MD [Staff Physician] - Provider,Not a Local [Primary Care Provider] - Forms: [employer] Info Instructions DS:Data Additional Comments Additional comments: Labs just prior to discharge: Hemoglobin 10.6, hematocrit 32.7, platelets 198 BUN 7, creatinine 0.6 AST 43, slightly increased from the day prior. ALT 28.
[2023-06-12 08:12] LABS: Alanine Aminotransferase* 28 U/L (4-35); Aspartate Amino Transferase* 43 U/L (12-35); Blood Urea Nitrogen* 7 mg/dL (5-24); Creatinine* 0.6 mg/dL (0.5-1.5); Estimated Glomerular Filt Rate 127 ml/min
--- NOTE | 2023-06-17 09:16 | P.LDBA_ITS ---
Subjective History of Present Illness Time Seen by Provider: 17:00 Date Seen: 06/10/23 Narrative: Patient is being admitted to Labor and Delivery for scheduled IOL due to polyhydramnios. She is a 27 year old at weeks gestation. Her full history and physical was dictated by myself on 05/25/2023. Please see this for details. She is has no interval changes since last time she was seen in clinic. Denies LOF, vaginal bleeding or abnormal vaginal discharge. Irregular contractions. Specific Issues/Plans G 3 P 1011 : Tin. Son: Rem. Baby: Boy! 1. H/o umbilical cord avulsion immediately after delivery. Patient reported thin umbilical cord. * Would recommend for this delivery if there is a nuchal cord to avoid reducing it and clamp and cut at perineum. 2. H/o genital HSV * Rec. prophylactic tx at 36 weeks: Valacyclovir 500mg PO BID 3. H/o anxiety. PHQ 2, PETER 1 at first OB. Not taking meds. Doing really well! 4. Possible Listeria exposure mid-February 2023: was notified of a recall for a food product she had already eaten at the end of February. * Viral syndrome 04/04/23-04/11/23: Myalgias, nausea without vomiting, fatigue, headache, mildly elevated temperature (99.2? F) * Blood culture ordered on 04/14/2023 to assess for possible listeriosis: NO GROWTH AFTER 48HRS. * ACOG: offer blood culture if the patient develops viral symptoms w/in 2 months of exposure. * Increases risk for stillbirth and listeriosis and . 5. Rh negative status. * Spotting 11/07: rhogam received in ED. 6. Polyhydramnios diagnosed on 04/08/23 * Center triage for viral syndrome (fatigue, nausea, body aches) and decreased movement: 30wk1d. * BPP done b/c the fetus was so active it was difficult to trace: Breech, BPP 05/04. SDP 10.2, JOSÉ MIGUEL 28.6 * 04/12/23: LVL 2 [facility] MFM : Vtx. JOSÉ MIGUEL 32.7. SDP: 11.0. EFW 1714gm, 3#12oz = 58%. Hypoplastic nasal bone. No other anomalies noted. Cell free DNA test collected. USN for EFW and BPP scheduled w/ MFM in 4 weeks (about 05/13/23) * Low risk NIPT * Weekly BPP ordered. Has BPP w/ EFW in 4 wks at the [facility] office. * BPP on 05/17/2023: JOSÉ MIGUEL 21 cm, currently resolved. MFM ultrasound next week. * Delivery at 39w0d - 39w6d * IOL Consent signed with Dr. Lindsay on 05/17, SVE around 38 weeks to decide if she needs cervical ripening. * MFM appointment on 06/09: Resolved poly Flu: Completed COVID: Completed in boosted x1. Recommended bivalent booster. Rhogam:03/26 Tdap: 04/14/2023 OB - Problem Based A/P Additional Plan (1) Polyhydramnios affecting : Status: Acute Delivery/Labor/Induction Plan Induction method: per misoprostol protocol OB Exam Physical Exam Vital signs: Temp Pulse Resp BP Pulse Ox O2 Del Method 98.6 F 75 16 118/67 98 Room Air 06/12/23 07:39 06/12/23 07:29 06/12/23 07:29 06/12/23 07:29 06/12/23 07:29 06/12/23 07:29 Narrative: Physical exam: General: No acute distress Psych: Alert and oriented x3, full affect HEENT: Normocephalic, atraumatic Lungs: Unlabored breathing Neuro: No focal deficit. Mentating appropriately Pelvic exam: /-4, thick, posterior per RN and consistent with my last exam in clinic last Wednesday
== END 2023-06-12 12:10 | disposition home or self-care (01) | DRG 806 ==
PROVIDERS: Obstetrics & Gynecology; Admitting Provider Obstetrics & Gynecology; Visit Provider Obstetrics & Gynecology
DX: O40.3XX0 Polyhydramnios, third trimester, not applicable or unspecified (principal); O98.32 Other infections with a predominantly sexual mode of transmission complicating childbirth; Z37.0 Single live birth; O13.4 Gestational [pregnancy-induced] hypertension without significant proteinuria, complicating childbirth; O14.04 Mild to moderate pre-eclampsia, complicating childbirth; O76 Abnormality in fetal heart rate and rhythm complicating labor and delivery; A60.00 Herpesviral infection of urogenital system, unspecified; O70.0 First degree perineal laceration during delivery; Z3A.39 39 weeks gestation of pregnancy
CPT/HCPCS: 1967; 36415; 59200; 82565; 84450; 84460; 84520; 85018; 85025; 85027; 85461; 86850; 86870; 86900; 86901; A9270; J2371; J2405; J2791; J7120

== ENCOUNTER 2023-06-15 08:50 | Outpatient (CLI) | payer OTHER, SELFPAY ==
[2023-06-15 09:00] VITALS: PULSE 71; O2SAT 96
[2023-06-15 09:03] VITALS: RESP 16; TEMP 37.1
[2023-06-15 09:15] VITALS: BP 117/71; PULSE 86
[2023-06-15 09:34] VITALS: BP 113/76; PULSE 77
[2023-06-15 09:39] LABS: Hematocrit 34.5 % (33.0-51.0); Mean Corpuscular HGB Conc 32 gm/dL (32-36); Mean Corpuscular Hemoglobin 27 pg (26-34); Mean Corpuscular Volume 83 fL (80-100); Platelet Count* 284 K/uL (140-440); Red Blood Count 4.14 m/uL (4.00-5.20); White Blood Count* 7.46 K/uL (4.50-11.00)
[2023-06-15 09:46] VITALS: BP 114/63; PULSE 72
--- NOTE | 2023-06-15 09:46 | P.OBO_ITS ---
OB Outpatient HPI History of Present Illness History of Present Illness: Linda is a 27-year-old G3 now P2 0-0-1-2 woman who is status post normal spontaneous vaginal delivery at 39 weeks, 1 day's gestation on 06/11/2023. She is now day 4. She was diagnosed with preeclampsia without severe features during her intrapartum course. She gave to a male infant, April. On PPD #1, after 24 hours normotensive and normal HELLP labs, other than mildly elevated AST, she was discharged to home. Given her diagnosis of preeclampsia, she has been checking her blood pressures regularly. She did have 1 with a systolic in the 140s this morning. However, upon arrival, she reports that her headache is much improved. She did have floaters in her vision yesterday, but these have resolved. She has no right upper quadrant pain. She denies any shortness of breath. She denies any heavy bleeding. Ob problem list: : Tin. Son: Rem. Baby: Boy! 1. H/o umbilical cord avulsion immediately after first delivery. 2. H/o genital HSV Rec. prophylactic tx at 36 weeks: Valacyclovir 500mg PO BID 3. H/o anxiety. PHQ 2, PETER 1 at first OB. Not taking meds. Doing really well! 4. Possible Listeria exposure mid-February 2023: was notified of a recall for a food product she had already eaten at the end of February. Viral syndrome 04/04/23-04/11/23: Myalgias, nausea without vomiting, fatigue, headache, mildly elevated temperature (99.2? F) Blood culture ordered on 04/14/2023 to assess for possible listeriosis: NO GROWTH AFTER 48HRS. ACOG: offer blood culture if the patient develops viral symptoms w/in 2 months of exposure. Increases risk for stillbirth and listeriosis and . 5. Rh negative status. Spotting 11/07: rhogam received in ED. 6. Polyhydramnios diagnosed on 04/08/23 Center triage for viral syndrome (fatigue, nausea, body aches) and decreased movement: 30wk1d. BPP done b/c the fetus was so active it was difficult to trace: Breech, BPP 8/8. SDP 10.2, JOSÉ MIGUEL 28.6 04/12/23: LVL 2 [facility] MFM : Vtx. JOSÉ MIGUEL 32.7. SDP: 11.0. EFW 1714gm, 3#12oz = 58%. Hypoplastic nasal bone. No other anomalies noted. Cell free DNA test collected. USN for EFW and BPP scheduled w/ MFM in 4 weeks (about 05/13/23) Low risk NIPT Weekly BPP ordered. Has BPP w/ EFW in 4 wks at the MFM office. BPP on 05/17/2023: JOSÉ MIGUEL 21 cm, currently resolved. MFM ultrasound next week. Delivery at 39w0d - 39w6d IOL Consent signed with Dr. Lindsay on 05/17, SVE around 38 weeks to decide if she needs cervical ripening. MFM appointment on 06/09: Flu: Completed COVID: Completed in boosted x1. Recommended bivalent booster. Rhogam:03/26 Tdap: 04/14/2023 Meds Home Medications and Allergies Home Medications Medication Instructions Recorded Confirmed Type docosahexaenoic acid 200 mg 200 mg PO DAILY PRN 04/28/22 06/10/23 History capsule ( DHA) calcium carbonate 200 mg calcium 200 mg PO BID 01/28/23 06/10/23 History (500 mg) chewable tablet (Tums) Allergies Allergy/AdvReac Type Severity Reaction Status Date / Time No Known Allergies Allergy Unknown Verified 06/03/23 15:38 [facility] Medical History (Updated 06/15/23 @ 09:50 by Salome Perdomo MD) Normal spontaneous vaginal delivery ?O80 - Encounter for full-term uncomplicated delivery (ICD-10) Exposure to Listeria monocytogenes ?Z20.818 - Contact with and (suspected) exposure to other bacterial communicable diseases (ICD-10) Polyhydramnios affecting in third trimester ?O40.3XX0 - Polyhydramnios, third trimester, not applicable or unspecified (ICD-10) Secondary amenorrhea ?N91.1 - Secondary amenorrhea (ICD-10) Anxiety ?F41.9 - Anxiety disorder, unspecified (ICD-10) History of ovarian cyst (2010) ?Z87.42 - Personal history of other diseases of the female genital tract (ICD-10) Surgical History Hx of cholecystectomy ?Z90.49 - Acquired absence of other specified parts of digestive tract (ICD- 10) History of tonsillectomy and adenoidectomy (1998) ?Z90.89 - Acquired absence of other organs (ICD-10) History of myringotomy ?Z98.890 - Other specified postprocedural states (ICD-10) Family History Paternal Grandfather Heart disease Father High blood pressure 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: , 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, 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, 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, 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 What is your current living situation?: I presently have a place to live Problems where you live: no known problems In the past 12 months, utilities in danger of being shut off: no In past 12 months, lack of transportation kept you from medical appts, meetings, work, or getting things needed for daily living: no In the past 12 mos, have been you worried that your food would run out before you had money to buy more?: never true In the past 12 mos, the food you bought just didn't last and you didn't have money to buy more?: never true Smoking Status: Never smoker How often do you have a drink containing alcohol: never AUDIT-C Alcohol total score: 0 Non-prescribed substance use: denies use How often does anyone, including family, friends and others, physically hurt you : never How often does anyone, including family, friends and others, insult or talk down to you: never How often does anyone, including family, friends and others, threaten you with harm: never How often does anyone, including family, friends and others, scream or curse at you: never Little interest or pleasure in doing things: not at all Feeling down, depressed, or hopeless: not at all History History 1 Elective abortions Para 1 Spontaneous abortions 1 Hx # Term Pregnancies 1 Ectopic pregnancies Hx # Pregnancies Multiple births Number of Living Children 1 Past Pregnancies Del. Date GA/Weeks Outcome Route wt Inf Gender Labor Lgth Anesthesia Location Provider Compli 08/07/21 39 live - full term 7 lb 6 oz Male 12 hrs moise Mcnally Delivery Date: 08/07/21 Last Updated by: Salome Perdomo MD OB - H&P: Exam Physical Exam Vital signs: Temp Pulse Resp BP Pulse Ox 98.7 F 72 16 114/63 96 06/15/23 09:03 06/15/23 09:46 06/15/23 09:03 06/15/23 09:46 06/15/23 09:00 Narrative: General: Pleasant, no acute distress Heart: Regular rate and rhythm, no murmur or gallop Lungs: Clear to auscultation bilaterally Abdomen: Soft, nontender, fundus well below umbilicus, no right upper quadrant tenderness Lower extremities: 1+ edema bilaterally, no erythema Labs Labs Laboratory Tests Labs today: Hemoglobin 11.0, hematocrit 34.5, platelets 284 BUN 9, creatinine 0.6 AST 57, up from 43 on 06/12/2023 ALT 48, up from 28 06/12/2023 Assessment and Plan Assessment and plan (1) Lactating mother: Status: Acute (2) Normal spontaneous vaginal delivery: Problem comment: Cord avulsion 2020, none with current delivery Status: Acute (3) Pre-eclampsia affecting puerperium: Status: Acute Assessment and Plan: Currently, she is without symptoms of severe preeclampsia and normotensive. Her transaminases have increased since her discharge. Thus, I would like her to return to clinic for repeat HELLP labs and clinic visit tomorrow. She is to let us know if she has any symptoms of preeclampsia before that time.
[2023-06-15 09:47] LABS: Slide Review Reflex No
[2023-06-15 09:58] LABS: Aspartate Amino Transferase* 57 U/L (12-35); Blood Urea Nitrogen* 9 mg/dL (5-24); Creatinine* 0.6 mg/dL (0.5-1.5); Estimated Glomerular Filt Rate 127 ml/min
[2023-06-15 10:35] LABS: Alanine Aminotransferase* 48 U/L (4-35)
== END 2023-06-15 11:20 | disposition home or self-care (01) ==
LOC: OB OUT 08:51 → OB 08:52
PROVIDERS: Visit Provider Obstetrics & Gynecology
DX: Z39.1 Encounter for care and examination of lactating mother (principal)
CPT/HCPCS: 36415; 82565; 84450; 84460; 84520; 85027; 99213

== ENCOUNTER 2023-06-16 08:30 | Outpatient (CLI) | payer OTHER, SELFPAY | END 2023-06-16 08:31 | disposition home or self-care (01) | LOC: NFLDREF 06-18 09:07 | PROVIDERS: Visit Provider Obstetrics & Gynecology | DX: O14.95 Unspecified pre-eclampsia, complicating the puerperium (principal) | CPT/HCPCS: 82565; 84450; 84460; 84520 ==

== ENCOUNTER 2023-06-17 08:19 | Outpatient (CLI) | payer OTHER, SELFPAY | END 2023-06-17 08:20 | disposition home or self-care (01) | LOC: NFLDREF 06-18 13:28 | PROVIDERS: Visit Provider Obstetrics & Gynecology | DX: O40.9XX0 Polyhydramnios, unspecified trimester, not applicable or unspecified (principal) | CPT/HCPCS: 82565; 84450; 84460; 84520; 84550 ==

== ENCOUNTER 2023-06-25 10:34 | Outpatient (CLI) | payer OTHER, SELFPAY | END 2023-06-25 10:35 | disposition home or self-care (01) | PROVIDERS: Visit Provider Registered Nurse | DX: Z39.2 Encounter for routine postpartum follow-up (principal) | CPT/HCPCS: 82565; 84450; 84460; 84520 ==

== ENCOUNTER 2023-09-17 11:07 | Outpatient (CLI) | payer OTHER, SELFPAY | END 2023-09-17 11:08 | disposition home or self-care (01) | PROVIDERS: Visit Provider Obstetrics & Gynecology | DX: R10.9 Unspecified abdominal pain (principal); R74.8 Abnormal levels of other serum enzymes | CPT/HCPCS: 84450; 84460; 87086 ==

== ENCOUNTER 2024-04-21 08:14 | Outpatient (CLI) | payer OTHER, SELFPAY | END 2024-04-21 08:15 | disposition home or self-care (01) | PROVIDERS: Visit Provider Physician Assistant | DX: N92.6 Irregular menstruation, unspecified (principal) | CPT/HCPCS: 80061; 82947; 83498; 84146; 84270; 84402; 84403; 84443 ==

== ENCOUNTER 2024-08-22 07:04 | Outpatient (CLI) | payer OTHER, SELFPAY ==
--- NOTE | 2024-08-22 07:15 | CRLHL7_ITS ---
For Patients: As a result of the Century Cures Act, medical imaging exams and procedure reports are released immediately into your electronic medical record. You may view this report before your referring provider. If you have questions, please contact your health care provider. INDICATION: First trimester scan, establish dates. COMPARISON: None. TECHNIQUE: Real-time timmons-scale imaging of the pelvis was performed. FINDINGS: Sonographic imaging demonstrates a single living intrauterine gestation. The embryo demonstrates a regular cardiac rate measuring 130 beats per minute. The embryo`s crown-rump length measurement of 0.9 cm corresponds to a gestational age of 6 weeks 6 days with a sonographic due date of 04/11/2025. There is a normal-appearing yolk sac. There are no gross abnormalities noted within the embryo at this early state of development. The gestational sac has a normal appearance. There is a 16 x 3 x 22 millimeter perigestational hemorrhage. The amount of fluid within the sac appears appropriate for gestational age. The cervix is closed. The myometrium appears normal. Unremarkable right ovary. Corpus luteal cyst left ovary measures 3.2 x 2.6 x 3.0 cm. There are no suspicious fluid collections noted in the cul-de-sac. IMPRESSION: Single living intrauterine with sonographic gestational age 6 weeks 6 days and a sonographic due date 04/11/2025. Superior subchorionic hemorrhage measuring 16 x 3 x 22 millimeters. Dictated by Seth Morocho MD @ 08/22/2024 11:42:22 AM (Electronically Signed)
== END 2024-08-22 07:05 | disposition home or self-care (01) ==
LOC: US 07:05
PROVIDERS: Visit Provider Physician Assistant
DX: Z34.91 Encounter for supervision of normal pregnancy, unspecified, first trimester (principal); O20.9 Hemorrhage in early pregnancy, unspecified; Z3A.01 Less than 8 weeks gestation of pregnancy
CPT/HCPCS: 76817

== ENCOUNTER 2024-08-22 08:36 | Outpatient (CLI) | payer OTHER, SELFPAY ==
[2024-08-22 12:04] LABS: Chlamydia DNA Amplified* NOT DETECTED (No Detected); GC DNA Amplified* NOT DETECTED (No Detected)
== END 2024-08-22 08:37 | disposition home or self-care (01) ==
PROVIDERS: Visit Provider Physician Assistant
DX: Z34.91 Encounter for supervision of normal pregnancy, unspecified, first trimester (principal); Z3A.01 Less than 8 weeks gestation of pregnancy
CPT/HCPCS: 82565; 82570; 83021; 84156; 84450; 84460; 84520; 86592; 86703; 86704; 86706; 86762; 86787; 86803; 86850; 86900; 86901; 87086; 87340; 87491; 87591

== ENCOUNTER 2024-09-01 11:10 | Outpatient (CLI) | payer OTHER, SELFPAY | END 2024-09-01 11:11 | disposition home or self-care (01) | LOC: NFLDREF 09-05 17:55 | PROVIDERS: Visit Provider Physician Assistant | DX: Z34.81 Encounter for supervision of other normal pregnancy, first trimester (principal) | CPT/HCPCS: 80076; 86704; 86706; 87340 ==

== ENCOUNTER 2024-09-08 12:24 | Outpatient (CLI) | payer OTHER, SELFPAY | END 2024-09-08 12:25 | disposition home or self-care (01) | LOC: NFLDREF 09-11 06:35 | PROVIDERS: Visit Provider Physician Assistant | DX: Z34.81 Encounter for supervision of other normal pregnancy, first trimester (principal) | CPT/HCPCS: 82570; 84156 ==

== ENCOUNTER 2024-09-29 09:18 | Outpatient (CLI) | payer OTHER, SELFPAY | END 2024-09-29 09:19 | disposition home or self-care (01) | LOC: NFLDREF 09-30 18:41 | PROVIDERS: Visit Provider Obstetrics & Gynecology | DX: O09.291 Supervision of pregnancy with other poor reproductive or obstetric history, first trimester (principal); Z3A.12 12 weeks gestation of pregnancy | CPT/HCPCS: 84450; 84460 ==

== ENCOUNTER 2024-10-31 09:16 | Outpatient (CLI) | payer OTHER, SELFPAY | END 2024-10-31 09:17 | disposition home or self-care (01) | LOC: NFLDREF 11-01 02:05 | PROVIDERS: Visit Provider Internal Medicine Nephrology | DX: R80.9 Proteinuria, unspecified (principal); R76.8 Other specified abnormal immunological findings in serum | CPT/HCPCS: 86140; 86160; 86225 ==

== ENCOUNTER 2024-11-03 09:44 | Outpatient (CLI) | payer OTHER, SELFPAY | END 2024-11-03 09:45 | disposition home or self-care (01) | PROVIDERS: Visit Provider Obstetrics & Gynecology | DX: O26.892 Other specified pregnancy related conditions, second trimester (principal); R80.9 Proteinuria, unspecified; R42 Dizziness and giddiness; Z3A.17 17 weeks gestation of pregnancy | CPT/HCPCS: 83540; 83550; 84450; 84460 ==

== ENCOUNTER 2024-11-21 09:18 | Outpatient (CLI) | payer OTHER, SELFPAY | END 2024-11-21 09:19 | disposition home or self-care (01) | LOC: NFLDREF 11-22 09:14 | PROVIDERS: Visit Provider Internal Medicine Nephrology | DX: R80.9 Proteinuria, unspecified (principal) | CPT/HCPCS: 82570; 84156 ==

== ENCOUNTER 2024-12-18 08:36 | Outpatient (CLI) | payer OTHER, SELFPAY | END 2024-12-18 08:37 | disposition home or self-care (01) | LOC: NFLDREF 12-19 06:27 | PROVIDERS: Visit Provider Internal Medicine Nephrology | DX: Z34.92 Encounter for supervision of normal pregnancy, unspecified, second trimester (principal); Z3A.23 23 weeks gestation of pregnancy; R80.9 Proteinuria, unspecified | CPT/HCPCS: 80069; 82570; 84156 ==

== ENCOUNTER 2025-01-15 14:56 | Outpatient (CLI) | payer OTHER, SELFPAY | END 2025-01-15 14:57 | disposition home or self-care (01) | LOC: NFLDREF 14:57 | PROVIDERS: Visit Provider Obstetrics & Gynecology | DX: Z34.83 Encounter for supervision of other normal pregnancy, third trimester (principal); Z67.11 Type A blood, Rh negative | CPT/HCPCS: 82565; 84450; 84460; 86592; 86850; J2791 ==

== ENCOUNTER 2025-01-31 11:30 | Outpatient (CLI) | payer OTHER, SELFPAY ==
[2025-01-31 11:42] VITALS: BP 113/67; PULSE 89
[2025-01-31 11:47] VITALS: PULSE 84; O2SAT 96
[2025-01-31 11:57] VITALS: BP 121/74; PULSE 96
[2025-01-31 12:12] VITALS: BP 110/62; PULSE 86
[2025-01-31 12:15] LABS: Hematocrit 34.7 % (33.0-51.0); Hemoglobin* 11.4 gm/dL (12.0-16.0); Mean Corpuscular HGB Conc 33 gm/dL (32-36); Mean Corpuscular Hemoglobin 28 pg (26-34); Mean Corpuscular Volume 84 fL (80-100); Platelet Count* 241 K/uL (140-440); Red Blood Count 4.12 m/uL (4.00-5.20); White Blood Count* 10.25 K/uL (4.50-11.00)
[2025-01-31 12:17] LABS: Slide Review Reflex No
[2025-01-31 12:27] VITALS: BP 110/63; PULSE 75
[2025-01-31 12:31] LABS: Alanine Aminotransferase* 22 U/L (4-35); Aspartate Amino Transferase* 24 U/L (12-35); Blood Urea Nitrogen* 12 mg/dL (5-24); Creatinine* 0.5 mg/dL (0.5-1.5); Estimated Glomerular Filt Rate 131 ml/min
[2025-01-31 12:42] VITALS: BP 101/57; PULSE 78
--- NOTE | 2025-01-31 14:06 | PC.OBNST ---
NST Note NST Note Start: 01/31/25 11:32 Freq: ONCE Status: Active Protocol: Document 01/31/25 14:03 JRSunny (Rec: 01/31/25 14:05 LORIE No Response) NST Note 4 Para (# of births) 2 EDC 04/11/25 Gestational Age In Weeks & Days 30 Weeks & 0 Days Patient Presented with Complaint(s) of Other Other Complaints Increased BP at home Reactive Yes Appropriate for Gestational Age Yes FABIANA Wilson Date 01/31/25 Reactive Yes Appropriate for Gestational Age Yes FABIANA Busby RN Date 01/31/25 OB NST charge Yes Complete NST Note via Write Note Yes The provider's electronic signature indicates the NST is reactive/appropriate for gestational age. *Note to provider: If an addendum is required, open the patient's chart and click on the note under the Nurse/Allied Health tab.
== END 2025-01-31 13:05 | disposition home or self-care (01) ==
LOC: OB OUT 11:30 → OB 11:30
PROVIDERS: Referring Provider Obstetrics & Gynecology; Visit Provider Obstetrics & Gynecology
DX: O26.893 Other specified pregnancy related conditions, third trimester (principal); R03.0 Elevated blood-pressure reading, without diagnosis of hypertension; Z3A.30 30 weeks gestation of pregnancy
CPT/HCPCS: 36415; 59025; 82565; 84450; 84460; 84520; 85027; G0463

== ENCOUNTER 2025-02-14 07:06 | Outpatient (CLI) | payer OTHER, SELFPAY ==
--- NOTE | 2025-02-14 07:15 | CRLHL7_ITS ---
For Patients: As a result of the Century Cures Act, medical imaging exams and procedure reports are released immediately into your electronic medical record. You may view this report before your referring provider. If you have questions, please contact your health care provider. INDICATION: persistent RUQ pain COMPARISON: none TECHNIQUE: Real time timmons scale imaging and color Doppler analysis was performed of the right upper quadrant. FINDINGS: The patient`s liver is of normal size and has uniform echogenicity. There is a normal appearance of the hepatic IVC and proximal abdominal aorta. There is no evidence of ascites. The gallbladder is absent. The common bile duct is of normal size and measures 2 mm in diameter at the level of the gisel hepatis. The visualized pancreas appears normal. Normal left kidney. Mild right renal pelviectasis. Right kidney measures 12.5 cm. Left kidney measures 11.7 cm. Spleen is mildly prominent and measures 12.5 x 11.1 x 5.1 cm. IMPRESSION: Mild right renal pelviectasis. Status post cholecystectomy. No biliary obstruction. Mild splenomegaly. Dictated by Seth Morocho MD @ 02/14/2025 9:29:07 AM (Electronically Signed)
== END 2025-02-14 07:07 | disposition home or self-care (01) ==
LOC: US 07:06
PROVIDERS: Visit Provider Obstetrics & Gynecology
DX: O26.893 Other specified pregnancy related conditions, third trimester (principal); R51.9 Headache, unspecified; Z3A.32 32 weeks gestation of pregnancy
CPT/HCPCS: 76700

== ENCOUNTER 2025-02-15 15:57 | Outpatient (CLI) | payer OTHER, SELFPAY ==
[2025-02-15] VITALS (9 sets, daily range): BP systolic 90–115; BP diastolic 50–74; PULSE 73–96; RESP 18; TEMP 36.6; O2SAT 96
[2025-02-15] MEDS: ACETAMINOPHEN 500 MG TABLET PO (16:56)
[2025-02-15 17:10] LABS: Hematocrit 34.5 % (33.0-51.0); Hemoglobin* 11.3 gm/dL (12.0-16.0); Mean Corpuscular HGB Conc 33 gm/dL (32-36); Mean Corpuscular Hemoglobin 27 pg (26-34); Mean Corpuscular Volume 83 fL (80-100); Platelet Count* 250 K/uL (140-440); Red Blood Count 4.17 m/uL (4.00-5.20); White Blood Count* 11.45 K/uL (4.50-11.00)
[2025-02-15 17:15] LABS: Slide Review Reflex No
[2025-02-15 17:42] LABS: Alanine Aminotransferase* 27 U/L (4-35); Aspartate Amino Transferase* 25 U/L (12-35); Blood Urea Nitrogen* 9 mg/dL (5-24); Creatinine* 0.5 mg/dL (0.5-1.5); Estimated Glomerular Filt Rate 131 ml/min
--- NOTE | 2025-02-15 18:59 | PC.OBNST ---
NST Note NST Note Start: 02/15/25 16:22 Freq: ONCE Status: Active Protocol: Document 02/15/25 18:58 WK (Rec: 02/15/25 18:59 WK No Response) NST Note 4 Para (# of births) 2 EDC 04/11/25 Gestational Age In 32 Weeks & 1 Days Weeks & Days Patient Presented Headache with Complaint(s) of Reactive Yes RN Yoel RNC Date 02/15/25 Reactive Yes FABIANA Reina RNC Date 02/15/25 OB NST charge Yes Complete NST Note Yes via Write Note The provider's electronic signature indicates the NST is reactive/appropriate for gestational age. *Note to provider: If an addendum is required, open the patient's chart and click on the note under the Nurse/Allied Health tab.
== END 2025-02-15 18:15 | disposition home or self-care (01) ==
LOC: OB OUT 15:58 → OB 16:02
PROVIDERS: Visit Provider Obstetrics & Gynecology
DX: O26.893 Other specified pregnancy related conditions, third trimester (principal); R51.9 Headache, unspecified; Z3A.32 32 weeks gestation of pregnancy
CPT/HCPCS: 36415; 59025; 82565; 84450; 84460; 84520; 85027; G0463; A9270

== ENCOUNTER 2025-02-17 09:22 | Outpatient (CLI) | payer OTHER, SELFPAY | END 2025-02-17 09:23 | disposition home or self-care (01) | LOC: NFLDREF 02-22 14:52 | PROVIDERS: Visit Provider Internal Medicine Nephrology | DX: O12.13 Gestational proteinuria, third trimester (principal); Z3A.32 32 weeks gestation of pregnancy | CPT/HCPCS: 82570; 84156 ==

== ENCOUNTER 2025-03-06 08:44 | Outpatient (CLI) | payer OTHER, SELFPAY | END 2025-03-06 08:45 | disposition home or self-care (01) | LOC: NFLDREF 03-08 18:44 | PROVIDERS: Visit Provider Internal Medicine Nephrology | DX: O12.13 Gestational proteinuria, third trimester (principal); Z3A.35 35 weeks gestation of pregnancy | CPT/HCPCS: 82565; 82570; 84156; 84450; 84460 ==

== ENCOUNTER 2025-03-16 10:35 | Outpatient (CLI) | payer OTHER, SELFPAY | END 2025-03-16 10:36 | disposition home or self-care (01) | LOC: NFLDREF 03-21 00:55 | PROVIDERS: Visit Provider Obstetrics & Gynecology | DX: Z34.83 Encounter for supervision of other normal pregnancy, third trimester (principal) | CPT/HCPCS: 87081; 87653 ==

== ENCOUNTER 2025-03-21 11:55 | Inpatient (IN) | payer OTHER, SELFPAY ==
[2025-03-21] VITALS (16 sets, daily range): BP systolic 92–135; BP diastolic 50–79; PULSE 68–107; RESP 16–18; TEMP 36.8–36.9; O2SAT 97
[2025-03-21 10:29] LABS: Hematocrit 37.3 % (33.0-51.0); Hemoglobin* 11.9 gm/dL (12.0-16.0); Mean Corpuscular HGB Conc 32 gm/dL (32-36); Mean Corpuscular Hemoglobin 25 pg (26-34); Mean Corpuscular Volume 79 fL (80-100); Platelet Count* 242 K/uL (140-440)
[2025-03-21 10:30] LABS: Slide Review Reflex No
[2025-03-21 10:37] LABS: Alanine Aminotransferase* 27 U/L (4-35); Aspartate Amino Transferase* 33 U/L (12-35); Blood Urea Nitrogen* 9 mg/dL (5-24); Creatinine* 0.6 mg/dL (0.5-1.5); Estimated Glomerular Filt Rate 125 ml/min
--- OUTSIDE RECORDS SUMMARY | 2025-03-21 10:46 | XMS_ITS | Clinical Summary ---
Author Organization [facility] Address [address] [place] [id number] Care Team Providers Care Yard Associate Name Role Phone Pcp, No Primary Care Provider Unavailabl e Gerald Oscar DO Unavailable [phone] Allergies No known active allergies Medications Omeprazole 20 mg tabletIndications :Abdominal pain, epigastric Take 1 tablet by mouth once daily before a meal. 14 tablet 0 Active betamethasone dipropionate 0.05% (DIPROSONE 0.05% OINTMENT) 0.05 % ointmentIndicatio ns:Rash,Spongioti c psoriasiform dermatitis Apply topically to affected area(s) 2 times daily. Use up to 2 weeks at a time, then take a break from this for at least a week. 90 g 1 0 Active Active Problems Problem Noted Date Diagnosed Date Irregular menses 10/02/2015 Ovarian cyst 08/13/2010 Resolved Problems Problem Noted Date Diagnosed Date Resolved Date HSV-1 (herpes simplex virus 1) infection 06/30/2018 06/30/2018 Unspecified asthma(493.90) 08/31/2006 0 03/25/2012 Allergic rhinitis, cause unspecified 08/31/2006 06/30/2018 Esophageal reflux 08/31/2006 06/30/2018 Encounters Date Type Department Care Team Description 01/08/2025 Orders Only [facility] [address] [place] [address] Karly Ovalle 1 scan: (1-Ord) Iamo Report 12/21/2024 3:30 PM CDT Office Visit [facility] at [facility] [address] [place] [address] Tyler Negron MD from Last 3 Months Immunizations Immunization Administration Dates Next Due DTaP 07/08/2000 DTaP-HIB (TriHIBIT) 10/03/1997, 8,01/01/1997,11/06,1996 Hepatitis A (Adult) 05/04/2016 Hepatitis B (Peds) 04/09/1997,1996, 996 Human Papilloma Virus Vaccine 08/22/2013, 012,03/25/2012 Inactivated Polio Vaccine 07/08/2000 Influenza, IIV3 (Age >=3 years) 08/22/2008,08/15,08/24/2006 Influenza, IIV4 07/18/2019, 8,08/12/2016,10/02 MENINGOCOCCAL VACCINE 2 VIAL 2MO-55YO (MENVEO) 08/22/2013 MMR 07/08/2000,10/03/1997 Oral Polio Vaccine 01/01/1997,1996, 996 Tdap 07/18/2019,01/21/2009 Tuberculin (PPD) 07/06/1997 Typhoid (injectable) 05/04/2016 Yellow Fever 05/04/2016 Family History Medical History Relation Name Comments Other Father Surinder hypertension Asthma Maternal Grandfather Heart Disease Maternal Grandfather Hyperlipidemia Maternal Grandfather Other Maternal Grandmother IBS Good Health Mother Saira Thyroid Disease Other maternal gre at grandma Other Paternal Grandmother hyperte nsion Good Health Sister 3 Penny Good Health Sister 4 Katty developmental d elay Relation Name Status Comments Father Surinder Alive Maternal Grandfather Maternal Grandmother Mother Saira Alive Other Paternal Grandfather Paternal Grandmother Sister 1 Alive Sister 2 Alive Sister 3 Penny Sister 4 Katty Social History Tobacco Use Types Packs/Day Years Used Date Smoking Tobacco: Never Smokeless Tobacco: Never Tobacco Cessation:Counseling Given: Yes Alcohol Use Standard Drinks/Week Comments Yes 0 (1 standard drink = 0.6 oz pur e alcohol) rare PHQ-2 Answer Date Recorded PHQ-2 Score 0 07/18/2019 Social Connections Answer Date Recorded Frequency of Communication with Friends and Fami ly Not on file 09/27/2021 Financial Resource Strain Answer Date R ecorded Difficulty of Paying Living Expenses Not on file 09/27/2021 Difficulty of Paying Living Expenses Not on file 09/27/2021 Comments No Sex and Gender Information Value Date Recorded Sex Assigned at Not on file Legal Sex Female 4:53 PM CDT Gender Identity Not on file Sexual Orientation Not on file 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 Not on file Not on file Obstetrics History Last Filed Vital Signs Vital Sign Reading Time Taken Comments Blood Pressure 118/62 11/21/2024 1:01 PM RAILROAD SURVEYOR Pulse 91 11/21/2024 1:01 PM RAILROAD SURVEYOR Temperature 36.8 C (98.3 F) 09/17/2023 6:52 PM RAILROAD SURVEYOR Respiratory Rate 18 09/17/2023 6:52 PM RAILROAD SURVEYOR Oxygen Saturation 95% 11/21/2024 1:01 PM RAILROAD SURVEYOR Inhaled Oxygen Concentration - - Weight 89 kg (196 lb 1.6 oz) 11/21/2024 1:01 PM RAILROAD SURVEYOR Height 162.6 cm (5' 4) 11/21/2024 1:01 PM RAILROAD SURVEYOR Body Mass Index 33.66 11/21/2024 1:01 PM RAILROAD SURVEYOR Plan of Treatment Health Maintenance Due Date Last Done Comments HIV for age 15-65 2011 Hepatitis C screening for age 18-79 2014 Depression screening for age 12+ 07/18/2020 07/18/2019, 06/30/2018, 11/29/2015 Influenza Vaccine (Season Ended) 2025 07/18/2019, 06/30/2018, 08/12/2016, Additional history exists BMI (ht and wt on same day) for age 18+ 11/21/2025 11/21/2024, 07/18/2019, 06/30/2018, Additional history exists Pap test for age 21-65 08/12/2026 3, 07/22/2023, 01/07/2021 Tetanus booster 07/18/2029 07/18/2019, 01/21/2009 Hepatitis B series for 19+ Completed 04/09, 1996, 1996 Tdap Completed 07/18/2019, 01/21/2009 COVID-19 vaccine series Completed 09/29/19, 12/05/2021, 05/30/2021, Additional history exists Pneumococcal series for age 6-49 Aged Out No longer eligible based on patient's age to complete this topic Procedures Procedure Name Priority Date/Time Associated Diagnosis Comments EXTENDED HOLTER Routine 01/08/2025 Palpitations DRAUGHTSMAN THIN PREP PAP SCREEN IMAGED Routine 08/12/2023 11:45 AM RAILROAD SURVEYOR from Last 3 Months or Most Recently Relevant to Health Maintenance Results * EXTENDED HOLTER (01/08/2025) Tyler Negron MD CARDIAC SERVICES ORD Linette pickens Result * DRAUGHTSMAN THIN PREP PAP SCREEN IMAGED (08/12/2023 11:45 AM RAILROAD SURVEYOR) Case Report Gynecologic Cytology Report Case: [id number] Authorizing Provider: Berta Jang NP Collected: 08/12/2023 1145 Ordering Location: [facility] Received: 08/12/2023 1626 First Screen: Haley Connolly Specimen: DRAUGHTSMAN ThinPrep Vial Screening, Cervical 08/25/2023 9:25 AM RAILROAD SURVEYOR [facility] INTERPRETATION/ RESULT NEGATIVE FOR INTRAEPITHELIAL LESION OR MALIGNANCY (NIL) (none) 08/25/2023 9:25 AM RAILROAD SURVEYOR [facility] at 0925 RAILROAD SURVEYOR SPECIMEN ADEQUACY Satisfactory for evaluation Endocervical component present 08/25/2023 9:25 AM RAILROAD SURVEYOR [facility] HPV REQUEST HPV not requested 2022 9:25 AM RAILROAD SURVEYOR [facility] Last Pap Date 07/22/2023 08/25/2023 9:25 AM RAILROAD SURVEYOR [facility] Last Pap Result UNS 9:25 AM RAILROAD SURVEYOR [facility] Abnormal Pap or Yantis Bx in last 5 years No 08/25/2023 9:25 AM RAILROAD SURVEYOR [facility] Menstrual Status Regular Periods 08/25/2023 9:25 AM RAILROAD SURVEYOR [facility] Yantis Bx Done Today No 08/25/2023 9:25 AM RAILROAD SURVEYOR [facility] Additional Information 08/25/2023 9:25 AM RAILROAD SURVEYOR [facility] Comment: Interpreted at [facility] - [address], [place] [address] Automated Review Successful 08/25/2023 9:25 AM RAILROAD SURVEYOR [facility] Comment:Specimen processed s uccessfully by automated banner painter device, ThinPrep Imaging System, [employer] Note The pap test is a screening technique, not a diagnostic procedure. It is used primarily to screen for squamous cancers and precursor lesions. Published studies have shown that it is subject to both false negative and false positive results. The pap test should not be used as the sole means to diagnose or exclude pre-malignant and malignant lesions. 08/25/2023 9:25 AM [facility] Other (Cervical) 08/12/2023 11:45 AM RAILROAD SURVEYOR 08/12/2023 4:26 PM RAILROAD SURVEYOR us Berta Jang NP PATHOLOGY/CYTOLOGY Final Result [facility] [address] [place] [address], [place] from Last 3 Months or Most Recently Relevant to Health Maintenance Insurance [facility] [place] [id number] Care Teams Yard Associate Relationship Specialty Start Date End Date Pcp, No . PCP - General 09/17/23 Gerald Oscar DO . 09/17/23
--- OUTSIDE RECORDS SUMMARY | 2025-03-21 10:46 | XMS_ITS | Clinical Summary ---
Author Organization [facility] Address [address] [place] [id number] Care Team Providers Care Plant Etiologist Name Role Phone Melly Shaver MD Unavailable [facility], [facility] Primary Care Provider Allergies No known active allergies Medications albuterol (PROAIR HFA/PROVENTIL HFA/VENTOLIN HFA) 108 (90 Base) MCG/ACT inhalerIndicati ons:Chest tightness Inhale 2 puffs into the lungs every 2 hours as needed for shortness of breath, wheezing or cough 18 g 3 Active Family History Medical History Relation Comments Hypertension Father Heart Disease Paternal Grandfather Hyperlipidemia Paternal Grandfather Relation Status Comments Father Paternal Grandfather Social History Tobacco Use Types Packs/Day Years Used Date Smoking Tobacco: Never Smokeless Tobacco: Never Tobacco Cessation:Counseling Given: Not Answered Adolescent Education Answer Date Record ed Getting School Help Needed Not on file 06/19 Estimated Date of Delivery Comme nts Yes 04/11/2025 Based on Ultraso und Sex and Gender Information Value Date Recorded Sex Assigned at Not on file Legal Sex Female 10:38 AM CDT Gender Identity Not on file Sexual Orientation Not on file Last Filed Vital Signs Vital Sign Reading Time Taken Comments Blood Pressure 113/70 11/24/2024 8:23 AM DIRECTORY COMPILER Pulse 82 11/24/2024 8:23 AM DIRECTORY COMPILER Temperature 37.1 C (98.7 F) 09/16/2023 7:56 PM DIRECTORY COMPILER Respiratory Rate 18 11/24/2024 8:23 AM DIRECTORY COMPILER Oxygen Saturation 99% 11/24/2024 8:23 AM DIRECTORY COMPILER Inhaled Oxygen Concentration - - Weight 76.2 kg (168 lb) 09/16/2023 7:56 PM DIRECTORY COMPILER Height 162.6 cm (5' 4) 09/16/2023 7:56 PM DIRECTORY COMPILER Body Mass Index 28.84 09/16/2023 7:56 PM DIRECTORY COMPILER Plan of Treatment Health Maintenance Due Date Last Done Comments ADVANCE CARE PLANNING 1996 ANNUAL REVIEW OF HM ORDERS 1996 YEARLY PREVENTIVE VISIT 1999 MATERNAL SCREENING DISCUSSION 09/13/2024 04/12/2023 PHQ-2 (once per calendar year) 2024 OBGCT (OB) 12/20/2024 TDAP VACCINE () 01/10/2025 GROUP B STREP SCREENING 03/14/2025 PAP 08/12/2026 08/12/2023 DTAP/TDAP/TD VACCINE (10 - Td or Tdap) 04/14/2033 04/14/2023, 06/20/2021, 07/18/2019, Additional history exists ZOSTER VACCINE (1 of 2) 2046 HEPATITIS B VACCINE Completed 04/09/1997, 1996, 1996 HPV VACCINE Completed 08/22/2013, 07/28, 03/25/2012 MENINGITIS VACCINE Completed 08/22/2013 HEPATITIS C SCREENING Completed 11/06/2022 HIV SCREENING Completed 11/06/2022 COVID-19 VACCINE Completed 09/29/2024, 07/2022, 05/30/2021, Additional history exists INFLUENZA VACCINE Completed 09/29/2024, , 09/13/2022, Additional history exists PNEUMOCOCCAL VACCINE: PEDIATRICS (0 to 5 YEARS) AND AT-RISK PATIENTS (6 to 49 YEARS) Aged Out No longer eligible based on patient's age to complete this topic RSV VACCINE (No Doses Required) Completed Procedures Procedure Name Priority Date/Time Associated Diagnosis Comments [facility] NON-INVASIVE SCREENING Routine 04/12/2023 1:10 PM CDT Abnormal ultrasound ABSTRACT HIV Routine 11/06/2022 3:05 PM DIRECTORY COMPILER HEPATITIS C (HIM EXTERNAL RESULT) Routine 11/06/2022 3:05 PM DIRECTORY COMPILER from Last 3 Months or Most Recently Relevant to Health Maintenance Results * [facility] Non-Invasive Screening (04/12/2023 1:10 PM CDT) See Scanned Result [facility] NON-INVASIVE SCREENING-Id anned 04/23/2023 4:13 PM CDT [facility] Blood STRUCTURE OF RIGHT UPPER LIMB / Unknown Venipuncture / Unknown 04/12/2023 1:10 PM CDT 04/12/2023 1:10 PM CDT us Zhao Garcia MD LAB - BLOOD ORDERABLES Final Result [facility] [address] [place] [address] * ABSTRACT HIV (11/06/2022 3:05 PM DIRECTORY COMPILER) [facility] HIV 1&2 EXT See Scanned Document [facility] Comment:Negative Blood 11/06/2022 3:05 PM DIRECTORY COMPILER [facility] - 11/06/2022 3:05 PM [facility] LAB RESULT us Provider Outside LAB - HIM EXTERNAL RESULT Final Result Performing Organization Address [facility] Co de Phone Number [facility] [address] [phone] * Hepatitis C (HIM External Result) (11/06/2022 3:05 PM DIRECTORY COMPILER) Pathologist [facility] Hep C HIM See Scanned Document [facility] Comment:Negative 11/06/2022 3:05 PM DIRECTORY COMPILER Narrative [facility] - 11/06/2022 3:05 PM DIRECTORY COMPILER [facility] LAB RESULT us Provider Outside LAB - HIM EXTERNAL RESULT Final Result Performing Organization Address [facility]/ZIP Co de Phone Number [facility] [address] [phone] from Last 3 Months or Most Recently Relevant to Health Maintenance Insurance [employer] Android App Review Source COMMERCIAL [facility] COMMERCIAL Care Teams Plant Etiologist Relationship Specialty Start Date End Date [facility], [address] [address] PCP - General 08/14/23 Melly Shaver MD [address] [address] Assigned OBGYN Provider 06/05/23
[2025-03-21 12:05] LABS: Creatinine Urine 53.3 mg/dL; Protein Creatinine Ratio Urine 0.21 (0-0.19); Total Protein Urine 11 mg/dL
--- NOTE | 2025-03-21 12:36 | PM.OBHPLI ---
OB - H&P: HPI Labor/Induction History of Present Illness Date Seen: 03/21/25 Chief Complaint: The patient is a 29 year old 4 para 2 at 37 weeks gestation by first trimester US, who presents from clinic for blood pressure monitoring. is complicated by history of preeclampsia, proteinuria, history of genital herpes, anxiety. Her complete history and physical is documented today by Neela Calle CNM - please see this for complete details. Linda was seen in clinic today for routine OB visit. There, she was noted to have a mild range blood pressure but on recheck it was in the high normal range. Similarly, she was seen yesterday in the nephrology clinic and was noted to have BP elevation to 154/92 that subsequently normalized. She is overall feeling well today. She has a very mild headache, rated 1/10 in severity at this time. Declines Tylenol for treatment. She did have a headache yesterday as well, notes that resolved with rest and Tylenol. Denies vision changes or right upper quadrant pain. She denies any regular/painful contractions, vaginal bleeding or leaking of fluid. Endorses active movement. Preeclampsia labs were obtained and found to be within normal limits. She did have an elevated UPCR of 1.35 on 03/06, and 24 hour urine demonstrating proteinuria (407) on 02/17 making her diagnosis preeclampsia without severe features. She has been normotensive during extended monitoring in triage, but regardless she does meet criteria for hypertensive disorder of given to blood pressures of greater than 140/90 by 4 hours. Recommend admission for induction of labor given gestational age of 37w0d. Chief complaint: Maternity Narrative: The patient is a 29 year old 4 para 2 at 37 weeks gestation by first trimester US, who presents from clinic for blood pressure monitoring. is complicated by history of preeclampsia, proteinuria, history of genital herpes, anxiety. Her complete history and physical is documented today by Neela Calle CNM - please see this for complete details. Linda was seen in clinic today for routine OB visit. There, she was noted to have a mild range blood pressure but on recheck it was in the high normal range. Similarly, she was seen yesterday in the nephrology clinic and was noted to have BP elevation to 154/92 that subsequently normalized. She is overall feeling well today. She has a very mild headache, rated 1/10 in severity at this time. Declines Tylenol for treatment. She did have a headache yesterday as well, notes that resolved with rest and Tylenol. Denies vision changes or right upper quadrant pain. She denies any regular/painful contractions, vaginal bleeding or leaking of fluid. Endorses active movement. Preeclampsia labs were obtained and found to be within normal limits. She did have an elevated UPCR of 1.35 on 03/06, and 24 hour urine demonstrating proteinuria (407) on 02/17 making her diagnosis preeclampsia without severe features. She has been normotensive during extended monitoring in triage, but regardless she does meet criteria for hypertensive disorder of given to blood pressures of greater than 140/90 by 4 hours. Recommend admission for induction of labor given gestational age of 37w0d. Specific Issues/Plans Partner: Chemehuevi. Sons: Rem, April. Baby: Auburn! H&P: Neela Calle CNM on 03/21/25 # history of preeclampsia with the 2nd and proteinuria in current Baseline pre E labs: normal with exception of mild AST elevation 47, pr/cr ratio:0.12 Nephrology referral: completed, repeat 24 hour urine collection in the third trimester and 3 months Repeat AST/ALT 09/29/24: AST 28, ALT 47 03/06: AST 28, ALT 26 Urine P/C 09/08/24 0.03. 11/21/24 0.44. 12/18/24 1.17. 02/17/25 0.18 and 03/06/25 1.35. 24hr protein 09/08/24 495mg. 11/21/24 760.5mg and 02/17/25 407.5 mg Aspirin 81 mg Home BP monitoring #Presyncopal episodes, palpitations and tachycardia reported at 17, 20 and 24 weeks Cardiology 12/21/24 - Zio patch with no acute findings # history of umbilical cord avulsion with 1st -If cord wrapped around neck consider clamping and cutting at perineum # Rh-negative status Rhogam: 01/15/25 # history of anxiety #history of genital herpes Prophylaxis with Valtrex 500 mg BID at 36 weeks: prescription ordered 02/28/25, instructed to start at 36 weeks. # Hepatitis-B core antibody positive; deemed false positive by hepatology repeat labs and liver panel: as below Referral to [facility]. Repeat labs: Seen 09/2023: She is non immune to Hep B. Labs 09/11/24: AST 24, ALT 43. Hep B core antibody negative. HBV DNA not detected by PCR. [facility] recommended Hepatitis B vaccine in . #Rheumatology consult 11/21/24: Low concern for rheumatologic pathology Recommend collection of labs and FU with them in 4 weeks Imaging: Level 2 and MFM consult completed 11/24/24: , not previa, three-vessel umbilical cord with central insertion, normal amount of amniotic fluid, EFW: 57th percentile, abdominal circumference: 66 percentile. Cervix closed and long measuring 48.1 mm. Recommendations given: Continue low-dose aspirin, monitor CBC, CMP, urine protein/creatinine ratio monthly. Maternal antepartum management: Recommend hepatitis-B vaccine. Home blood pressure monitoring, close monitoring for signs/symptoms of preeclampsia. Follow-up with Nephrology as recommended in the 3rd trimester. Vaccinations: COVID: received Flu: received Tdap: given 02/01/25 32 week mental health: 02/14/25 Last pap: 08/12/23 Meds Home Medications and Allergies Home Medications ?Medication ?Instructions ?Recorded ?Confirmed ?Type BPF-gmlg-KD-omega 3 fatty no.1 27 1 cap PO DAILY 08/22/24 03/21/25 History mg-1 mg-300 mg capsule aspirin 81 mg capsule 81 mg PO QDAY 11/03/24 03/21/25 History betamethasone dipropionate 0.05 % 1 applic topical QDAY PRN 12/18/24 03/21/25 History topical cream omeprazole 20 mg capsule,delayed 20 mg PO QDAY 02/01/25 03/21/25 History release betamethasone dipropionate 0.05 % 1 applic topical QDAY PRN skin 02/14/25 03/21/25 Rx topical ointment irritation #45 grams valacyclovir 500 mg tablet 500 mg PO BID 1 month #60 tabs 02/28/25 03/21/25 Rx Allergies Allergy/AdvReac Type Severity Reaction Status Date / Time No Known Allergies Allergy Unknown Verified 03/21/25 09:07 OB - H&P: Exam Physical Exam: Vital signs: Pulse BP 95 128/71 03/21/25 11:35 03/21/25 11:35 Narrative: General: Alert and oriented, no acute distress Psych: Appropriate mood and affect Abdomen: Gravid. Nontender. Reactive NST on admission. Cervix: 10/26/-3 OB - Results Labs Labs: Short CBC 03/21/25 Range/Units 10:21 WBC 9.80 (4.50-11.00) K/uL Hgb 11.9 L (12.0-16.0) gm/dL Hct 37.3 (33.0-51.0) % Plt Count 242 (140-440) K/uL BMP 03/21/25 10:21 BUN 9 Creatinine 0.6 Liver Function 03/21/25 Range/Units 10:21 AST 33 (12-35) U/L ALT 27 (4-35) U/L OB - Problem Based A/P Additional Plan (1) Preeclampsia: Status: Acute (2) Proteinuria affecting : Status: Acute (3) Excessive weight gain during in third trimester: Problem details: 51 pounds at 36 weeks Status: Acute (4) Genital herpes simplex: Status: Acute Plan Linda is a 29-year-old at 37w0d GA admitted for induction of labor in the setting of new diagnosis of preeclampsia without severe features. is complicated by history of preeclampsia, baseline proteinuria, history of genital herpes (on suppressive therapy), and anxiety. Explained the patient meets criteria for preeclampsia without severe features given to episodes of blood pressure greater than 140/90 greater than 4 hours apart. Though she does have a very mild headache, she rates this as a 1/10 in severity and declines Tylenol for this. Given she does not have a true unrelenting headache, no vision changes right upper quadrant pain I do not feel this meets criteria for severe feature. Admission preeclampsia labs were within normal limits. Of note, she does have baseline proteinuria on a recent 24 hour urine thus her diagnosis is felt the best represent preeclampsia without severe features. Cervix is 10/26/-3 on presentation. Discussed cervical ripening with Cook catheter versus Cytotec, where patient would desire Cytotec as she had good success with this in her last delivery. - Plan to admit to Labor and delivery, place IV and then start induction with PV Cytotec. - Diligent blood pressure monitoring ongoing - no indication for long or short-acting antihypertensive medications at this time - No convincing signs/symptoms of GAME DESIGNER/CREATIVE DIRECTOR irritability or right upper quadrant pain. Plan to monitor her headache, patient declined Tylenol at this time as it is so tolerable. - Admission preeclampsia labs within normal limits, plan to repeat as clinically indicated - Strict I&O assessment - On HSV prophylaxis, no active lesions/prodromal symptoms - Blood type A negative, plan cord blood at time of delivery - GBS negative
[2025-03-21] MEDS: miSOPROStoL 25 MCG/0.25 TABLET VAGINAL ×3 (13:46→21:40)
[2025-03-22] VITALS (59 sets, daily range): BP systolic 88–132; BP diastolic 50–79; PULSE 61–118; RESP 14–20; TEMP 36.2–37; O2SAT 83–100; BMI 39.3
[2025-03-22] MEDS: ACETAMINOPHEN 500 MG TABLET 1000 MG PO ×3 (02:05→20:47)
[2025-03-22] MEDS: LACTATED RINGERS 1000 ML 1,000 ML 1200 ML IV ×2 (02:24→03:18)
[2025-03-22] MEDS: OXYTOCIN 30 unit/500 ML in NS 30 UNIT/500 ML BAG IVPB (02:29)
[2025-03-22] MEDS: LIDOCAINE 2% (PF) 5 ML VIAL EPIDURAL (03:10)
[2025-03-22] MEDS: ROPIVACAINE 0.2% 100 ml 100 ML 12 MG EPIDURAL (03:15)
--- NOTE | 2025-03-22 03:22 | P.ANBPRC_ITS ---
[facility] Medical History Skin tag of perianal region ?K64.4 - Residual hemorrhoidal skin tags (ICD-10) Gestational hypertension ?O13.9 - Gestational [-induced] hypertension without significant proteinuria, unspecified trimester (ICD-10) Polyhydramnios affecting ?O40.9XX0 - Polyhydramnios, unspecified trimester, not applicable or unspecified (ICD-10) Normal spontaneous vaginal delivery ?O80 - Encounter for full-term uncomplicated delivery (ICD-10) Exposure to Listeria monocytogenes ?Z20.818 - Contact with and (suspected) exposure to other bacterial communicable diseases (ICD-10) Secondary amenorrhea ?N91.1 - Secondary amenorrhea (ICD-10) Anxiety ?F41.9 - Anxiety disorder, unspecified (ICD-10) History of ovarian cyst (2010) ?Z87.42 - Personal history of other diseases of the female genital tract (ICD-10) Surgical History Hx of cholecystectomy (05/17/20) ?Z90.49 - Acquired absence of other specified parts of digestive tract (ICD- 10) History of tonsillectomy and adenoidectomy (1998) ?Z90.89 - Acquired absence of other organs (ICD-10) History of myringotomy ?Z98.890 - Other specified postprocedural states (ICD-10) Family History Paternal Grandfather Heart disease Father High blood pressure 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: 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 Marital status: . Restoration/cultural needs: no. Chemical or radiation exposure: no. Pre- tobacco use: no. Pre- alcohol use: 0-1 per day. Current tobacco use: no. Current alcohol use: no. Recreational drug use: no. Dietary restrictions: no. Blood transfusion acceptable in an emergency: yes. PSYCHOSOCIAL HISTORY: History of depression or currently depressed: Denies. Current or past physical, emotional, or sexual mistreatment: No. Problems that will make it hard to make it to appointments: no What is your current living situation?: I presently have a place to live Problems where you live: no known problems In the past 12 months, utilities in danger of being shut off: no In past 12 months, lack of transportation kept you from medical appts, meetings, work, or getting things needed for daily living: no In the past 12 mos, have been you worried that your food would run out before you had money to buy more?: never true In the past 12 mos, the food you bought just didn't last and you didn't have money to buy more?: never true Smoking Status: Never smoker How often do you have a drink containing alcohol: never AUDIT-C Alcohol total score: 0 Non-prescribed substance use: denies use How often does anyone, including family, friends and others, physically hurt you : never How often does anyone, including family, friends and others, insult or talk down to you: never How often does anyone, including family, friends and others, threaten you with harm: never How often does anyone, including family, friends and others, scream or curse at you: never Meds Home Medications and Allergies Home Medications ?Medication ?Instructions ?Recorded ?Confirmed ?Type RWN-nrcg-TM-omega 3 fatty no.1 27 1 cap PO DAILY 08/2203/21/25 History mg-1 mg-300 mg capsule aspirin 81 mg capsule 81 mg PO QDAY 11/03/2403/21 History betamethasone dipropionate 0.05 % 1 applic topical QDA Y PRN 12/18/24 03/21/25 History topical cream omeprazole 20 mg capsule,delayed 20 mg PO QDAY 5 03/21/25 History release betamethasone dipropionate 0.05 % 1 applic topical QDA Y PRN skin 02/14/25 03/21/25 Rx topical ointment irritation #45 grams valacyclovir 500 mg tablet 500 mg PO BID 1 month #60 t abs 02/28/25 03/21/25 Rx Allergies Allergy/AdvReac Type Severity Reaction Status Date / Time No Known Allergies Allergy Unknown Verified 03/21/25 09:07 Results Labs Labs: Laboratory Results - last 24 hr 03/21/25 03/21/25 10:21 11:30 WBC 9.80 RBC 4.70 Hgb 11.9 L Hct 37.3 MCV 79 L MCH 25 L MCHC 32 Plt Count 242 BUN 9 Creatinine 0.6 Estimated GFR 125 AST 33 ALT 27 Urine Creatinine 53.3 Protein/Creatinin Ratio 0.21 H Urine Total Protein 11 Vital Signs Vital Signs: Last Vital Signs Temp 98.3 F 03/21/25 22:00 Pulse 77 03/22/25 00:01 Resp 16 03/22/25 00:01 BP 131/69 03/22/25 00:01 Pulse Ox 97 03/21/25 17:28 Weight: 100.8 kg Anesthesia Procedures Epidural Insertion Patient Location: OB Start Time: 02:30 Stop Time: 03:30 Start Date: 03/22/25 Stop Date: 03/22/25 Reason for Block: procedure for pain Patient Position: sitting Performed By: Kelsie Daily Preanesthetic Checklist: IV checked, risks and benefits discussed, monitors and equipment checked, pre-op evaluation, timeout performed and anesthesia consent Prep: chlorhexidine gluconate Monitoring: blood pressure monitoring, continuous pulse oximetry and heart rate Approach: midline Vertebral Space: lumbar (1-5) Epidural Technique: FRANKY saline Needle Type: Tuohy needle Injection Technique: continuous catheter (continuous catheter) Needle gauge: 17 Needle Length (cm): 10 cm Needle Insertion Depth (cm): 8 Catheter Gauge: 19 Catheter Type: multi-orifice Catheter at skin depth (cm): 15 Test Dose Result: negative and lidocaine 1.5% with epinephrine 1 to 200,000
[2025-03-22] MEDS: PHENYLEPHRINE 100 MCG/ML SYRINGE IVP ×3 (03:24→04:14)
[2025-03-22] MEDS: ONDANSETRON 2 MG/ML inj 4 MG IV (05:06)
[2025-03-22] MEDS: LACTATED RINGERS 1000 ML 1,000 ML 125 ML IV (05:07)
[2025-03-22 05:36] LABS: Basophils Percent Auto 0.2 % (0.0-3.0); Eosinophils Percent Auto 0.3 % (0.0-7.0); Hematocrit 34.2 % (33.0-51.0); Hemoglobin* 10.9 gm/dL (12.0-16.0); Immature Granulocytes Pct Auto 0.8 %; Lymphocytes Percent Auto 11.3 % (20-44); Mean Corpuscular HGB Conc 32 gm/dL (32-36); Mean Corpuscular Hemoglobin 25 pg (26-34); Mean Corpuscular Volume 79 fL (80-100); Monocytes Percent Auto 7.2 % (0.0-11.0); Neutrophils Percent Auto 80.2 % (42.0-72.0); Platelet Count* 214 K/uL (140-440); RDW Coefficient of Variation % 12.6 % (11.5-15.5); Red Blood Count 4.31 m/uL (4.00-5.20); White Blood Count* 12.35 K/uL (4.50-11.00)
[2025-03-22 05:37] LABS: Slide Review Reflex No
[2025-03-22] MEDS: CEFAZOLIN 2 GM INJ IVP (05:48)
[2025-03-22 05:49] LABS: INR 1.06 (0.91-1.10); Prothrombin Time 14.6 Seconds
[2025-03-22 05:50] LABS: Fibrinogen* 663 mg/dL (200-450); Partial Thromboplastin Time* 23 Seconds (23-33)
[2025-03-22] MEDS: AZITHROMYCIN 500 MG in 0.9 % SODIUM CHLORIDE 250 ml 250 ML 255 MG IVPB (05:52)
--- NOTE | 2025-03-22 07:57 | P.OBPN_ITS ---
Subjective Time Seen by Provider: 05:15 Date Seen: 03/22/25 Narrative: Linda is a 29 year old 4 para 2 at 37w1d GA admitted for IOL in the setting of preeclampsia without severe features. is complicated by history of preeclampsia, proteinuria, history of genital herpes, anxiety. Induction of labor progress included Cytotec PV x3, then initiation of low-dose Pitocin. Suspected SROM occurred at 0208 with small volume leaking of pink- tinged thin fluid, where cervical exam at 0330 was 4cm. At 0450, she was noted to be 6.5/80/-1 with report of pressure. I presented to the bedside, during which I received work Linda was complete. On arrival, she is comfortable with epidural in place. Objective Exam: General: Alert and oriented, in no acute distress Psych: Appropriate mood and affect Abdomen: Gravid heart rate: Category 2. Baseline of 145 beats per minute, moderate variability, 10x10 accelerations, recurrent variable decelerations Cervix: 10cm dilation, bulging bag of water. Presenting part palpated at 0 station, felt to represent vertex. Amniotomy of forebag was performed, return of clear fluid. As the presenting part descended into vaginal canal, complete breech presentation was immediately detected. Vital Signs: Last Vital Signs Temp 97.8 F 03/22/25 03:45 Pulse 75 03/22/25 02:00 Resp 16 03/22/25 04:34 BP 116/74 03/22/25 04:34 Pulse Ox 98 03/22/25 03:32 Assessment Amniotic Membrane Status: AROM Plan Plan: Linda is a 29 year old 4 para 2 at 37w1d GA ongoing IOL for preeclampsia without severe features. is complicated by history of preeclampsia, proteinuria, history of genital herpes, anxiety. IOL has included cytotec, low dose pitocin (subsequently turned off). Suspected SROM occurred at 0206, where patient was complete at 0450. Forebag rupture was performed at 0515, where complete breech presentation was subsequently palpated. Code white was called, 2nd OBGYN requested due to concern for potentially imminent may breech vaginal delivery. Transabdominal ultrasound confirmed complete breech malpresentation. Transferred emergently to the operating room. There, patient was positioned on the OR table and placed in yellofin stirrups. Continuous monitoring continue, with a baseline of 150 beats per minute, moderate variability and recurrent variable decelerations. Porfirio of decelerations were ranged from 60bpm to 100bpm, but rapid recovery was noted to a normal baseline. Vaginal exam was repeated, no appreciable descent was ensuing. Operating room team prepared for dual set up - with a vaginal delivery tray (with emergency equipment available in the event of possible breech vaginal) and . During this time, I did provide Linda with updates and discuss the risk s/benefits to both a breech may vaginal delivery and primary delivery. Explained that I do feel primary would be safer overall if this can be accomplished, due to potential risk of cord compression, hypoxia, head entrapment brachial plexus injury. Discussed risks of including bleeding, infection, damage to surrounding structures (uterus, tubes, ovaries, bowel, bladder, blood vessels, baby). She would be agreeable to blood transfusion if necessary. Verbal consent for primary delivery was obtained. Upon arrival of anesthesia provider, we confirmed plan to proceed with a stat delivery under general anesthesia. Her partner was guided back to room in the setting of under general. Plan ancef and azithromycin. Please see subsequent operative note for complete details.
--- NOTE | 2025-03-22 08:03 | P.ANES_ITS ---
Anesthesia Charges Start Date/Time Anesthesia Start Date: 03/22/25 Anesthesia Start Time: 05:41 Stop Date/Time Anesthesia Stop Date: 03/22/25 Anesthesia Stop Time: 07:56 Summary Emergency: PROCESS CONTROLLER Coding CPT Codes CPT Codes: ANES/ANALG CS DELIVER ADD-ON - 57511 ([id number]) P2 - PATIENT W/MILD SYST DISEASE, QZ - PROCESS CONTROLLER SVC W/O COLLECTIONS DIRECTOR BY Additional Codes: Summary - Emergency: PROCESS CONTROLLER ([id number])
--- NOTE | 2025-03-22 08:03 | W.ANESCHARGE ---
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
--- NOTE | 2025-03-22 08:06 | W.PM.NB ---
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 Images saved: Yes Medications given in 5ml increments after negative aspiration: Marcaine %: 0.25 mL: 30 Needle gauge: 20 and Exparel mL: 10 Needle gauge: 20 Patient tolerated procedure well: Yes Block Charges Block Charge (with Pro Fee): TAP Bilateral Use of Ultrasound Machine for Block: Yes- US Guidance/pain block
--- NOTE | 2025-03-22 08:08 | PM.OBPRCCS ---
Procedure Time Seen by Provider: 08:15 Date of procedure: 03/22/25 Pre-op diagnosis: Breech malpresentation, active labor, preeclampsia without severe features Procedure Done: Global (Diagnostic cystoscopy) Will [facility] bill your pro fee for this procedure?: Yes Blood Loss Measurement Type: QBL (9055) Bakri Used: No IV fluids (mL): 2,100 Urine Output (mL): 450 Urine Output Comment: Haley, clear Surgeon: Dominga Dennis MD [employer] Supervisor: Salome Perdomo MD Anesthesia Type: General Findings: Complete breech malpresentation Liveborn male fetus Bilateral inferior extension of the hysterotomy to the vagina, left greater than right hemorrhage secondary to tissue trauma Unremarkable bilateral fallopian tubes and ovaries Procedure Name: Primary delivery Diagnostic cystoscopy Procedure Description: Linda is a 29yo at 37w1d GA ongoing IOL for preeclampsia without severe features. Code white was called due to breech malpresentation and complete cervical dilation. Please see my prior note for details. Patient was taken to the operating room emergently with IV running. She was placed in Yellofin stirrups, making care to avoid neurologic injury. She was prepped emergently with Betadine, draped in the usual sterile fashion. A surgical pause was performed. General anesthesia was induced. Dr. Perdomo arrived shortly after start of procedure, scrubbed in to assist. A low-transverse skin incision was made with a scalpel and carried through to the underlying layer of fascia with the scalpel. The fascia was nicked in the midline with a scalpel, and this incision was extended laterally bluntly consistent with Louie-Fonseca entry. The rectus muscles were in the midline. Peritoneum was identified and entered bluntly. Desmond O retractor was inserted and tightened down, providing excellent visualization of the lower uterine segment. The bladder reflection was found to be below the planned site for hysterotomy. Low-transverse uterine incision was made with a scalpel. Incision was widened bluntly. A hand from below was requested to gently elevated the breech. The infant's breech was grasped through the hysterotomy in sacrum transverse (left) position and elevated to the hysterotomy. Fundal pressure was applied, the body delivered without incident. Flexion of the head was achieved with Vjlgzlebn-Bffxlah-Wptf maneuver to atraumatically deliver the head. Delivery ocurred at 0548. was noted to have a spontaneous cry, adequate tone. Delayed cord clamping for 45 seconds was performed. Infant was handed off to attending nurses and ENGINEERING GROUP MANAGER. The placenta was delivered with gentle traction on the cord. The uterus was cleaned of all clots and debris with the dry lap pad. The hysterotomy was examined where bilateral extensions were noted inferiorly toward the vagina. The right extension was at the lateral most edge of the hysterotomy, left extension midway between the midline and left most lateral hysterotomy margin. IV Pitocin and 1 g of IV TXA was requested and administered. The right and left suspected apexes of extensions were grasped with ring forceps. The left extension was noted to be deepest, where a running locking suture of 0 vicryl was applied to improve hemostasis. After doing so, the plane between the bladder between the lower uterine segment/cervix and vagina could not be reliably identified but this was temporarily kept in place to aid with hemostasis to ensure visualization. The right extension of the hysterotomy was subsequently closed in a running locking fashion with 0 vicryl, where significant improvement in hemostasis was noted. The vesicouterine/vaginal place could be readily delineated on the right, thus dissection ensured from right to left working from known safe area to unknown to drop the bladder clear of the surgical field. In doing so, we did remove the previous 0 vicryl suture on the left extension. Once the vesicouterine/vaginal plane was fully dropped, the left extension was closed in a running locking fashion - running from the hysterotomy down to extension apex on the medial aspect (to decrease bleeding/improve visualization), then bridging lateral to medial tissues back up in a running locking fashion. Suture was secured and significant improvement in hemostasis was noted with these efforts. Attention was then turned to the hysterotomy itself, which was closed in a running locking fashion. Care was made to ensure the integrity of the closure between the superior margin of the hysterotomy to the apices of each inferior extension. Hemostasis was significant improved at this time. Excellent uterine tone was noted throughout closure. Dr. Perdomo then completed a vaginal exam, where there was thin and slightly vaginal tissue was palpated along the left hysterotomy extension to the vagina. This was reinforced with two figure of eight sutures with 0 vicryl. Repeat vaginal exam was performed, ensuring good tissue approximation and integrity of repair. Oozing serosal edges on the hysterotomy were addressed with electrocautery. The entirety of the hysterotomy, extensions and vesicouterine/vaginal plan was inspected and noted to be hemostatic. The left ureter could be palpated inferior to site of repair, but given extent of extensions vaginally and complex repair I did elect to proceed with a diagnostic cystoscopy. IV fluorescein was administered. Pino catheter was removed. the cystoscope was assembled with saline inflow, outflow, and light cord in place. Cystoscope was advanced through the urethra into the bladder, and survey of the bladder noted the with air bubbles seen. Complete bladder survey was performed, no apparent under defect or suture material seen. There was some blood noted at the distal posterior bladder/urethral opening, in the region of the trigone. Saline inflow aided with clearing this area to ensure it was, too, free of a defect or cystotomy. Bilateral ureteral jets were noted with robust efflux of urine. Cystoscope was removed. Pino catheter was reinserted. Attention was then returned to patient's abdomen. Again, the entirety of the hysterotomy, bilateral extensions and vesicovaginal/uterine plane was inspected with excellent hemostasis noted. The adnexa were examined and noted to be normal in appearance. The cul-de-sac and gutters were cleansed with dampened laparotomy sponge, removing any further clots and debris. The Desmond retractor was removed, again hemostasis was assured throughout. Deng was applied across the hysterotomy, focusing on the left and right extensions. The rectus muscles were examined and found to be hemostatic. The fascia was reapproximated with 0 Vicryl in a running fashion. Subcutaneous fat was irrigated and Bovie used on oozing vessels. The subcutaneous fat was reapproximated with 2 0 vicryl suture in a continuous fashion. The skin was closed with a subcuticular stitch of 3-0 monocryl. Silver dressing was applied above this. details: - Liveborn male fetus - weight: 2780g - APGARs were 7 and 7 at 1 and 5 minutes respectively - Baby receive 1 minute of CPAP, was off support and on room air at completion of case. Patient tolerated procedure well was taken to recovery area in stable condition. Plan to obtain stat labs at completion of procedure. Surgical debrief was completed. At time of debrief, QBL was 1540mL but later further items/clots were weighed with total QBL 2394mL. Given complexity of extension of hysterotomy and surgical repair, I did sexual assault counselor Linda and her that I would not recommend trial of labor after in the future. They expressed understanding. Formal debrief was completed at the bedside at 0930 with myself, Linda and Chito to review her labor course, surgery and recovery. All questions answered. Complications: hemorrhage due to tissue trauma Bilateral extensions of the hysterotomy to the vagina Pathology: specimen obtained, sent to pathology Surgery Debrief Performed: Yes Condition: stable Disposition: floor total score - 1 minute: 7 total score - 5 minute: 7
[2025-03-22] MEDS: fentaNYL 100 MCG/2 ML inj 50 MCG IVP ×3 (08:10→12:05)
[2025-03-22 08:22] LABS: Basophils Percent Auto 0.1 % (0.0-3.0); Hematocrit 28.5 % (33.0-51.0); Hemoglobin* 9.1 gm/dL (12.0-16.0); Immature Granulocytes Pct Auto 0.8 %; Lymphocytes Percent Auto 5.5 % (20-44); Mean Corpuscular HGB Conc 32 gm/dL (32-36); Mean Corpuscular Hemoglobin 26 pg (26-34); Mean Corpuscular Volume 81 fL (80-100); Monocytes Percent Auto 3.6 % (0.0-11.0); Platelet Count* 255 K/uL (140-440); RDW Coefficient of Variation % 12.7 % (11.5-15.5); Red Blood Count 3.53 m/uL (4.00-5.20); White Blood Count* 20.43 K/uL (4.50-11.00)
[2025-03-22 08:32] LABS: Slide Review Reflex No
[2025-03-22 08:36] LABS: INR 1.11 (0.91-1.10); Prothrombin Time 15.2 Seconds
[2025-03-22 08:37] LABS: Partial Thromboplastin Time* 23 Seconds (23-33)
[2025-03-22 08:38] LABS: Fibrinogen* 511 mg/dL (200-450)
--- NOTE | 2025-03-22 10:21 | PM.ANPOST ---
Post Anesthesia Note Post Anesthesia Note Complications: other (follow up with pt post emergency C/S. Pt right eye swollen. Talked with pt about possible corneal abrasion. Order Erythromycin ointment and pain medication)
[2025-03-22 11:45] LABS: Basophils Percent Auto 0.1 % (0.0-3.0); Hematocrit 24.7 % (33.0-51.0); Immature Granulocytes Pct Auto 0.5 %; Lymphocytes Percent Auto 4.7 % (20-44); Mean Corpuscular HGB Conc 32 gm/dL (32-36); Mean Corpuscular Hemoglobin 26 pg (26-34); Mean Corpuscular Volume 80 fL (80-100); Monocytes Percent Auto 4.7 % (0.0-11.0); Platelet Count* 229 K/uL (140-440); RDW Coefficient of Variation % 12.8 % (11.5-15.5); White Blood Count* 21.16 K/uL (4.50-11.00)
[2025-03-22 11:56] LABS: Slide Review Reflex No
[2025-03-22] MEDS: CEFAZOLIN 2 GM in 0.9 % SODIUM CHLORIDE Mini-bag 100 ML IVPB (12:06)
[2025-03-22] MEDS: OXYCODONE 5 MG TABLET PO ×4 (13:30→22:37)
--- NOTE | 2025-03-22 14:30 | ED.GENADULT ---
HPI - General Adult General Date Seen: 03/22/25 History of Present Illness HPI narrative: I was called from the ER to see this patient on the Mother Baby Unit. She is generally healthy fully vaccinated 29-year-old female who had gone into labor this morning and was found to have a breech presentation so underwent an emergent early this morning. During the process she did suffer an injury to her right eye, and has been having significant right eye tearing, pain, photophobia, with a little bit of redness and swelling of her lids. Concern is for probable corneal abrasion. The OB team requests ER to evaluate. I went to the patient's room on the Mother Baby Unit. She was quite uncomfortable and unable to open her right eye because of photophobia. After confirming no allergies we did administer 2 drops of 1% tetracaine. With this good anesthesia was achieved she was able to open her eye and look around the room. Vision was still mildly blurry. Visual acuity was 20/100 uncorrected. Visual acuity was 20/50 in the right eye with pinhole testing. 20/30 with her left eye. Of note she normally wears contacts and only has a contact in her left eye currently. PERRLA, EOMI. No exophthalmos or enophthalmos. Conjunctiva without injection or chemosis she does have slight redness of her lid. Wood's Lamp Exam: Lids: No foreign body noted in detailed exam upper and lower lids/margins Anterior Chamber: No cells or flare, No hyphema. No hypopyon. Cornea: No foreign body. Fluorescein staining: Small triangular shaped 1 x 2 mm corneal abrasion to the right of the midline of her cornea at about the 9 o'clock position. I do not see any other corneal uptake. No evidence for herpetic dendrites. Fluorescein exam shows staining consistent with a corneal abrasion. No foreign bodies in eyes or lids noted. No corneal ulcers. No evidence for I perforation or and ophthalmitis. I cannot identify any retained contact or corneal foriegn body at this time. No signs of retinal abnormalities, dendritic lesions, open globe, acute glaucoma, or other serious eye disease. No signs of anterior chamber involvement such as endopthalmitis at this point. No sign of bacterial conjunctivitis. Lids are mildly inflamed did not appear to be infected.. PLAN: 1. Topical antibiotics-she already has erythromycin ointment we been provided to her by the anesthesia team 2. Pain management with orals meds. After discussion of risks and benefits with topical medications we did agree to go ahead with tetracaine drops 1 or 2 drops every 2 hours for the next 24 hours. After that should stop. 3. Close f/u of eye clinic Related Data Home Medications ?Medication ?Instructions ?Recorded ?Confirmed [id number] 3 fatty no.1 27 1 cap PO DAILY 08/22/24 03/21/25 mg-1 mg-300 mg capsule betamethasone dipropionate 0.05 % 1 applic topical QDAY PRN 12/18/24 03/21/25 topical cream omeprazole 20 mg capsule,delayed 20 mg PO QDAY 02/01/25 03/21/25 release Previous Rx's ?Medication ?Instructions ?Recorded betamethasone dipropionate 0.05 % 1 applic topical QDAY PRN skin 02/14/25 topical ointment irritation #45 grams acetaminophen 500 mg tablet 1,000 mg (2 x 500 mg) PO Q6H PRN 03/25/25 Pain #30 tabs docusate sodium 100 mg capsule 100 mg PO BID #30 caps 03/25/25 ferrous sulfate 325 mg (65 mg 325 mg PO Q48H #60 tabs 03/25/25 iron) tablet ibuprofen 600 mg tablet 600 mg PO Q6H PRN Pain #30 tabs 03/25/25 oxycodone 5 mg tablet 5 - 10 mg (1 - 2 x 5 mg) PO Q4H 03/25/25 PRN Pain #10 tabs Allergies Allergy/AdvReac Type Severity Reaction Status Date / Time No Known Allergies Allergy Unknown Verified 03/21/25 09:07 [facility] Medical History (Updated 03/23/25 @ 22:52 by Lacey Zhao MD) History of pre-eclampsia ?Z87.59 - Personal history of other complications of , childbirth and the puerperium (ICD-10) Excessive weight gain during in third trimester ?O26.03 - Excessive weight gain in , third trimester (ICD-10) Skin tag of perianal region ?K64.4 - Residual hemorrhoidal skin tags (ICD-10) Gestational hypertension ?O13.9 - Gestational [-induced] hypertension without significant proteinuria, unspecified trimester (ICD-10) Polyhydramnios affecting ?O40.9XX0 - Polyhydramnios, unspecified trimester, not applicable or unspecified (ICD-10) Normal spontaneous vaginal delivery ?O80 - Encounter for full-term uncomplicated delivery (ICD-10) Exposure to Listeria monocytogenes ?Z20.818 - Contact with and (suspected) exposure to other bacterial communicable diseases (ICD-10) Secondary amenorrhea ?N91.1 - Secondary amenorrhea (ICD-10) Anxiety ?F41.9 - Anxiety disorder, unspecified (ICD-10) History of ovarian cyst (2010) ?Z87.42 - Personal history of other diseases of the female genital tract (ICD-10) Surgical History (Updated 03/23/25 @ 22:52 by Lacey Zhao MD) S/P emergency section (03/22/25) ?Z98.891 - History of uterine scar from previous surgery (ICD-10) Hx of cholecystectomy (05/17/20) ?Z90.49 - Acquired absence of other specified parts of digestive tract (ICD-10) History of tonsillectomy and adenoidectomy (1998) ?Z90.89 - Acquired absence of other organs (ICD-10) History of myringotomy ?Z98.890 - Other specified postprocedural states (ICD-10) Family History Paternal Grandfather Heart disease Father High blood pressure 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: 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 Marital status: . Orthodoxy/cultural needs: no. Chemical or radiation exposure: no. Pre- tobacco use: no. Pre- alcohol use: 0-1 per day. Current tobacco use: no. Current alcohol use: no. Recreational drug use: no. Dietary restrictions: no. Blood transfusion acceptable in an emergency: yes. PSYCHOSOCIAL HISTORY: History of depression or currently depressed: Denies. Current or past physical, emotional, or sexual mistreatment: No. Problems that will make it hard to make it to appointments: no What is your current living situation?: I presently have a place to live Problems where you live: no known problems In the past 12 months, utilities in danger of being shut off: no In past 12 months, lack of transportation kept you from medical appts, meetings, work, or getting things needed for daily living: no In the past 12 mos, have been you worried that your food would run out before you had money to buy more?: never true In the past 12 mos, the food you bought just didn't last and you didn't have money to buy more?: never true Smoking Status: Never smoker How often do you have a drink containing alcohol: never AUDIT-C Alcohol total score: 0 Non-prescribed substance use: denies use How often does anyone, including family, friends and others, physically hurt you: never How often does anyone, including family, friends and others, insult or talk down to you: never How often does anyone, including family, friends and others, threaten you with harm: never How often does anyone, including family, friends and others, scream or curse at you: never Exam Const: Vital Signs, click to edit/add: Vital Signs - 24 hr 03/24/25 16:49 03/24/25 20:52 03/25/25 00:17 Temperature 98.8 F Pulse Rate [Left P ulse Oximeter] 75 76 71 Respiratory Rate 16 18 18 Blood Pressure [Ri ght Arm] 107/56 L 117/73 97/60 Pulse Oximetry 96 97 97 Oxygen Delivery Me thod Room Air Room Air Room Air 03/25/25 04:23 03/25/25 08:45 Temperature 98.6 F 98.7 F Pulse Rate [Left P ulse Oximeter] 85 80 Respiratory Rate 18 18 Blood Pressure [Ri ght Arm] 96/67 123/82 Pulse Oximetry 97 98 Oxygen Delivery Me thod Room Air Room Air Course Vital Signs Vital signs: Initial Vital Signs Pulse Rate 97 03/21/25 10:21 Blood Pressure 135/74 03/21/25 10:21 Blood Pressure Mean 95 03/21/25 10:21 Vital Signs Pulse Rate 97 03/21/25 10:21 Blood Pressure 135/74 03/21/25 10:21 Temperature 98.7 F 03/25/25 08:45 Pulse Rate 80 03/25/25 08:45 Respiratory Rate 18 03/25/25 08:45 Blood Pressure 123/82 03/25/25 08:45 Pulse Oximetry 98 03/25/25 08:45 Oxygen Delivery Method Room Air 03/25/25 08:45 Medications Administered Medications: Generic Name Dose Route Start Last Admin Trade Name Jay PRN Reason Stop Dose Admin Acetaminophen 1,000 mg 03/22/25 07:23 03/25/25 06:23 Acetaminophen 500 Mg Tablet PO 1,000 mg Q6H PRN Administration Pain Docusate Sodium 100 mg 03/23/25 09:00 03/25/25 08:41 Docusate Sodium 100 Mg Capsule PO 100 mg BID CRUZ Administration Erythromycin 1 applic 03/22/25 17:00 03/24/25 23:37 Erythromycin Ophth Oint 3.5 Gm EYE-BOTH Not Given QID CRUZ Ferrous Sulfate 325 mg 03/22/25 12:00 03/24/25 11:25 Ferrous Sulfate 325 Mg Tablet PO 325 mg Q48H CRUZ Administration Lactated Ringer's 1,000 mls @ 125 mls/hr 03/21/25 13:45 03/25/25 06:23 Lactated Ringers 1000 Ml IV Not Given .Q8H CRUZ Magnesium Sulfate 40 gm in 1,000 mls @ 50 mls/hr 03/22/25 20:15 03/24/25 23:36 Magnesium Infusion IVPB Not Given .Q20H CRUZ 2 GM/HR Ibuprofen 600 mg 03/22/25 07:23 03/25/25 08:41 Ibuprofen 600 Mg Tablet PO 600 mg Q6H PRN Administration Pain Morphine Sulfate 2 mg 03/23/25 02:15 03/23/25 07:17 Morphine 2 Mg/Ml Inj IVP 2 mg Q1H PRN Administration Oxycodone HCl 5 - 10 mg 03/22/25 07:23 03/23/25 12:56 Oxycodone 5 Mg Tablet PO 5 mg Q4H PRN Administration Pain Simethicone 80 - 160 mg 03/22/25 07:23 03/24/25 00:29 Simethicone 80 Mg Tab.Chew PO 160 mg Q4H PRN Administration Gas Discontinued Medications Generic Name Dose Route Start Last Admin Trade Name Jay PRN Reason Stop Dose Admin Acetaminophen 1,000 mg 03/21/25 13:43 03/22/25 02:05 Acetaminophen 500 Mg Tablet PO 1,000 mg Q6H PRN Administration pain/fever Cefazolin Sodium 2 gm 03/22/25 06:58 03/22/25 05:48 Cefazolin 2 Gm Inj IVP 03/22/25 06:59 2 gm ONCE ONE Administration Docusate Sodium 100 mg 03/22/25 09:00 03/22/25 14:44 Docusate Sodium 100 Mg Capsule PO Not Given DAILY CRUZ Fentanyl 50 mcg 03/22/25 08:02 03/22/25 08:10 Fentanyl 100 Mcg/2 Ml Inj IVP 50 mcg Q5M PRN Administration Fentanyl 50 mcg 03/22/25 10:10 03/22/25 12:05 Fentanyl 100 Mcg/2 Ml Inj IVP 50 mcg BID PRN Administration Pain Oxytocin 30 unit in 500 mls @ 1 mls/hr 03/22/25 02:30 03/22/25 03:25 Oxytocin 30 Unit/500 Ml In Ns IVPB 0 milliunit/min .TITRATE CRUZ 0 mls/hr Protocol Titration 1 MILLIUNIT/MIN Ropivacaine 100 mls @ 12 mls/hr 03/22/25 03:00 03/22/25 03:15 Ropivacaine 0.2% 100 Ml EPIDURAL 12 mls/hr CONT CRUZ Administration Azithromycin 500 mg/ Sodium 255 mls @ 255 mls/hr 03/22/25 07:02 03/22/25 05:52 Chloride IVPB 03/22/25 07:03 255 mls/hr ONCE ONE Administration Cefazolin Sodium 2 gm/ Sodium 100 mls @ 200 mls/hr 03/22/25 12:00 03/24/25 21:06 Chloride IVPB 03/23/25 04:01 Not Given Q8H [facility] Magnesium Sulfate 4 gm in 100 mls @ 200 mls/hr 03/22/25 20:01 03/22/25 20:55 Magnesium Iv IVPB 03/22/25 20:30 Infused ONCE ONE Infusion Cefazolin Sodium 2 gm/ Sodium 100 mls @ 200 mls/hr 03/23/25 07:30 03/23/25 15:46 Chloride IVPB 03/23/25 15:31 200 mls/hr Q8H CRUZ Administration Ketorolac Tromethamine 30 mg 03/22/25 09:00 03/23/25 06:56 Ketorolac 30 Mg/Ml Inj IVP 03/23/25 09:01 Not Given Q6H CRUZ Ketorolac Tromethamine 30 mg 03/23/25 08:00 03/24/25 08:00 Ketorolac 30 Mg/Ml Inj IVP 03/24/25 08:01 Not Given Q6H CRUZ Lidocaine HCl 5 ml 03/22/25 02:50 03/22/25 03:10 Lidocaine 2% (Pf) 5 Ml Vial EPIDURAL 03/22/25 02:51 5 ml ONCE ONE Administration Misoprostol 25 mcg 03/21/25 13:45 03/22/25 06:58 Misoprostol 25 Mcg/0.25 Tablet VAGINAL Not Given Q3H CRUZ Morphine Sulfate 2 mg 03/23/25 01:10 03/23/25 01:17 Morphine 2 Mg/Ml Inj IVP 03/23/25 01:11 2 mg ONCE ONE Administration Ondansetron HCl 4 mg 03/21/25 13:43 03/22/25 05:06 Ondansetron 2 Mg/Ml Inj IV 4 mg Q4H PRN Administration Nausea And Vomiting Phenylephrine HCl 50 - 100 mcg 03/22/25 02:50 03/22/25 04:14 Phenylephrine 100 Mcg/Ml Syringe IVP 100 mcg Q5M PRN Administration Medical Decision Making Lab Data Labs: Lab Results 03/21/25 03/21/25 03/21/25 Range/Units 10:21 11:30 13:43 WBC 9.80 (4.50-11.00) K/uL RBC 4.70 (4.00-5.20) m/uL Hgb 11.9 L (12.0-16.0) gm/dL Hct 37.3 (33.0-51.0) % MCV 79 L (80-100) fL MCH 25 L (26-34) pg MCHC 32 (32-36) gm/dL RDW Coeff of Shawn (11.5-15.5) % Plt Count 242 (140-440) K/uL Neut % (Auto) (42.0-72.0) % Lymph % (Auto) (20-44) % [place] % (Auto) (0.0-11.0) % Eos % (Auto) (0.0-7.0) % Baso % (Auto) (0.0-3.0) % Neut # (Auto) (1.7-7.0) K/uL Lymph # (Auto) (0.90-2.90) K/uL [place] # (Auto) (0.00-0.90) K/UL Eos # (Auto) (0.00-0.50) K/uL Baso # (Auto) (0.00-0.30) K/uL Abs Immat Gran (auto) (0.00-0.30) K/uL Imm/Tot Granulo (auto) % INR (0.91-1.10) APTT (23-33) Seconds Fibrinogen (200-450) mg/dL BUN 9 (5-24) mg/dL Creatinine 0.6 (0.5-1.5) mg/dL Estimated Creat Clear Estimated GFR 125 ml/min Magnesium (1.5-2.6) mg/dL AST 33 (12-35) U/L ALT 27 (4-35) U/L Urine Creatinine 53.3 mg/dL Protein/Creatinin Ratio 0.21 H (0-0.19) Urine Total Protein 11 mg/dL RPR Screen Non Reactive (Non Reactive) Lab Acknowledgement Blood Type Antibody Screen Screen Crossmatch (AHG) 03/22/25 03/22/25 03/22/25 Range/Units 05:30 08:14 08:38 WBC 12.35 H 20.43 H (4.50-11.00) K/uL RBC 4.31 3.53 L (4.00-5.20) m/uL Hgb 10.9 L 9.1 L (12.0-16.0) gm/dL Hct 34.2 28.5 L (33.0-51.0) % MCV 79 L 81 (80-100) fL MCH 25 L 26 (26-34) pg MCHC 32 32 (32-36) gm/dL RDW Coeff of Shawn 12.6 12.7 (11.5-15.5) % Plt Count 214 255 (140-440) K/uL Neut % (Auto) 80.2 H 90.0 H (42.0-72.0) % Lymph % (Auto) 11.3 L 5.5 L (20-44) % [place] % (Auto) 7.2 3.6 (0.0-11.0) % Eos % (Auto) 0.3 0.0 (0.0-7.0) % Baso % (Auto) 0.2 0.1 (0.0-3.0) % Neut # (Auto) 9.90 H 18.40 H (1.7-7.0) K/uL Lymph # (Auto) 1.40 1.10 (0.90-2.90) K/uL [place] # (Auto) 0.90 0.70 (0.00-0.90) K/UL Eos # (Auto) 0.00 0.00 (0.00-0.50) K/uL Baso # (Auto) 0.00 0.00 (0.00-0.30) K/uL Abs Immat Gran (auto) 0.10 0.20 (0.00-0.30) K/uL Imm/Tot Granulo (auto) 0.8 0.8 % INR 1.06 1.11 H (0.91-1.10) APTT 23 23 (23-33) Seconds Fibrinogen 663 H 511 H (200-450) mg/dL BUN (5-24) mg/dL Creatinine (0.5-1.5) mg/dL Estimated Creat Clear Estimated GFR ml/min Magnesium (1.5-2.6) mg/dL AST (12-35) U/L ALT (4-35) U/L Urine Creatinine mg/dL Protein/Creatinin Ratio (0-0.19) Urine Total Protein mg/dL RPR Screen (Non Reactive) Lab Acknowledgement Test Added Blood Type A Negative Antibody Screen NEGATIVE Screen Crossmatch (AHG) See Detail 03/22/25 03/22/25 03/22/25 Range/Units 11:39 16:50 23:29 WBC 21.16 H 17.00 H 13.54 H (4.50-11.00) K/uL RBC 3.10 L 3.38 L 2.99 L (4.00-5.20) m/uL Hgb 8.0 L 8.6 L 7.6 L* (12.0-16.0) gm/dL Hct 24.7 L 26.9 L 24.1 L (33.0-51.0) % MCV 80 80 81 (80-100) fL MCH 26 25 L 25 L (26-34) pg MCHC 32 32 32 (32-36) gm/dL RDW Coeff of Shawn 12.8 13.0 (11.5-15.5) % Plt Count 229 232 211 (140-440) K/uL Neut % (Auto) 90.0 H 82.6 H (42.0-72.0) % Lymph % (Auto) 4.7 L 8.8 L (20-44) % [place] % (Auto) 4.7 6.8 (0.0-11.0) % Eos % (Auto) 0.0 0.0 (0.0-7.0) % Baso % (Auto) 0.1 0.1 (0.0-3.0) % Neut # (Auto) 19.00 H 14.00 H (1.7-7.0) K/uL Lymph # (Auto) 1.00 1.50 (0.90-2.90) K/uL [place] # (Auto) 1.00 H 1.20 H (0.00-0.90) K/UL Eos # (Auto) 0.00 0.00 (0.00-0.50) K/uL Baso # (Auto) 0.00 0.00 (0.00-0.30) K/uL Abs Immat Gran (auto) 0.10 0.30 (0.00-0.30) K/uL Imm/Tot Granulo (auto) 0.5 1.7 % INR (0.91-1.10) APTT (23-33) Seconds Fibrinogen (200-450) mg/dL BUN 6 6 (5-24) mg/dL Creatinine 0.5 0.6 (0.5-1.5) mg/dL Estimated Creat Clear 138.57 115.47 Estimated GFR 131 125 ml/min Magnesium 4.3 H* (1.5-2.6) mg/dL AST 152 H 150 H (12-35) U/L ALT 40 H 39 H (4-35) U/L Urine Creatinine mg/dL Protein/Creatinin Ratio (0-0.19) Urine Total Protein mg/dL RPR Screen (Non Reactive) Lab Acknowledgement Blood Type Antibody Screen Screen Negative Crossmatch (AHG) 03/23/25 03/23/25 03/23/25 Range/Units 01:15 06:43 11:07 WBC 11.13 H 11.12 H (4.50-11.00) K/uL RBC 3.21 L 3.41 L (4.00-5.20) m/uL Hgb 8.4 L 8.9 L (12.0-16.0) gm/dL Hct 26.2 L 27.6 L (33.0-51.0) % MCV 82 81 (80-100) fL MCH 26 26 (26-34) pg MCHC 32 32 (32-36) gm/dL RDW Coeff of Shawn (11.5-15.5) % Plt Count 194 202 (140-440) K/uL Neut % (Auto) (42.0-72.0) % Lymph % (Auto) (20-44) % [place] % (Auto) (0.0-11.0) % Eos % (Auto) (0.0-7.0) % Baso % (Auto) (0.0-3.0) % Neut # (Auto) (1.7-7.0) K/uL Lymph # (Auto) (0.90-2.90) K/uL [place] # (Auto) (0.00-0.90) K/UL Eos # (Auto) (0.00-0.50) K/uL Baso # (Auto) (0.00-0.30) K/uL Abs Immat Gran (auto) (0.00-0.30) K/uL Imm/Tot Granulo (auto) % INR 1.02 0.96 (0.91-1.10) APTT 23 25 (23-33) Seconds Fibrinogen 504 H 521 H (200-450) mg/dL BUN 4 L 4 L (5-24) mg/dL Creatinine 0.5 0.6 (0.5-1.5) mg/dL Estimated Creat Clear 138.57 115.47 Estimated GFR 131 125 ml/min Magnesium 5.1 H* 5.9 H* (1.5-2.6) mg/dL AST 126 H 138 H (12-35) U/L ALT 37 H 42 H (4-35) U/L Urine Creatinine mg/dL Protein/Creatinin Ratio (0-0.19) Urine Total Protein mg/dL RPR Screen (Non Reactive) Lab Acknowledgement Blood Type Antibody Screen Screen Crossmatch (AHG) 03/23/25 03/23/25 03/24/25 Range/Units 17:02 23:23 06:24 WBC 12.05 H 9.87 10.83 (4.50-11.00) K/uL RBC 3.42 L 3.03 L 3.45 L (4.00-5.20) m/uL Hgb 9.0 L 8.1 L 9.1 L (12.0-16.0) gm/dL Hct 27.9 L 24.9 L 28.5 L (33.0-51.0) % MCV 82 82 83 (80-100) fL MCH 26 27 26 (26-34) pg MCHC 32 33 32 (32-36) gm/dL RDW Coeff of Shawn (11.5-15.5) % Plt Count 236 220 262 (140-440) K/uL Neut % (Auto) (42.0-72.0) % Lymph % (Auto) (20-44) % [place] % (Auto) (0.0-11.0) % Eos % (Auto) (0.0-7.0) % Baso % (Auto) (0.0-3.0) % Neut # (Auto) (1.7-7.0) K/uL Lymph # (Auto) (0.90-2.90) K/uL [place] # (Auto) (0.00-0.90) K/UL Eos # (Auto) (0.00-0.50) K/uL Baso # (Auto) (0.00-0.30) K/uL Abs Immat Gran (auto) (0.00-0.30) K/uL Imm/Tot Granulo (auto) % INR (0.91-1.10) APTT (23-33) Seconds Fibrinogen (200-450) mg/dL BUN 5 6 5 (5-24) mg/dL Creatinine 0.6 0.6 0.6 (0.5-1.5) mg/dL Estimated Creat Clear 115.47 115.47 115.47 Estimated GFR 125 125 125 ml/min Magnesium 5.8 H* 4.0 H (1.5-2.6) mg/dL AST 136 H 108 H 112 H (12-35) U/L ALT 46 H 41 H 44 H (4-35) U/L Urine Creatinine mg/dL Protein/Creatinin Ratio (0-0.19) Urine Total Protein mg/dL RPR Screen (Non Reactive) Lab Acknowledgement Blood Type Antibody Screen Screen Crossmatch (AHG) 03/25/25 Range/Units 06:04 WBC 8.97 (4.50-11.00) K/uL RBC 3.34 L (4.00-5.20) m/uL Hgb 8.8 L (12.0-16.0) gm/dL Hct 28.0 L (33.0-51.0) % MCV 84 (80-100) fL MCH 26 (26-34) pg MCHC 31 L (32-36) gm/dL RDW Coeff of Shawn 13.9 (11.5-15.5) % Plt Count 263 (140-440) K/uL Neut % (Auto) 62.7 (42.0-72.0) % Lymph % (Auto) 24.9 (20-44) % [place] % (Auto) 6.0 (0.0-11.0) % Eos % (Auto) 4.1 (0.0-7.0) % Baso % (Auto) 0.6 (0.0-3.0) % Neut # (Auto) 5.63 (1.7-7.0) K/uL Lymph # (Auto) 2.23 (0.90-2.90) K/uL [place] # (Auto) 0.50 (0.00-0.90) K/UL Eos # (Auto) 0.37 (0.00-0.50) K/uL Baso # (Auto) 0.05 (0.00-0.30) K/uL Abs Immat Gran (auto) 0.15 (0.00-0.30) K/uL Imm/Tot Granulo (auto) 1.7 % INR (0.91-1.10) APTT (23-33) Seconds Fibrinogen (200-450) mg/dL BUN 6 (5-24) mg/dL Creatinine 0.6 (0.5-1.5) mg/dL Estimated Creat Clear 115.47 Estimated GFR 125 ml/min Magnesium (1.5-2.6) mg/dL AST 94 H (12-35) U/L ALT 43 H (4-35) U/L Urine Creatinine mg/dL Protein/Creatinin Ratio (0-0.19) Urine Total Protein mg/dL RPR Screen (Non Reactive) Lab Acknowledgement Blood Type Antibody Screen Screen Crossmatch (AHG) Discharge Plan Discharge Disposition: Home, Self-Care Date of Admission: 03/21/25 11:55 Primary Care Provider: Provider,Not a Local Condition: Stable Anticipated Discharge Date/Time: 03/25/25 08:57 Discharge Medications: New acetaminophen 500 mg Tablet 1,000 mg PO Q6H PRN (Reason: Pain) Qty: 30 0RF ferrous sulfate 325 mg (65 mg iron) Tablet 325 mg PO Q48H Qty: 60 0RF docusate sodium 100 mg Capsule 100 mg PO BID Qty: 30 0RF ibuprofen 600 mg Tablet 600 mg PO Q6H PRN (Reason: Pain) Qty: 30 0RF oxycodone 5 mg Tablet 5 - 10 mg PO Q4H PRN (Reason: Pain) Qty: 10 0RF Continued [id number] 3 fatty no.1 27-1-300 mg capsule 1 cap PO DAILY betamethasone dipropionate 0.05 % cream 1 applic topical QDAY PRN omeprazole 20 mg capsule,delayed release(DR/EC) 20 mg PO QDAY betamethasone dipropionate 0.05 % ointment 1 applic topical QDAY PRN (Reason: skin irritation) Qty: 45 0RF Discontinued aspirin 81 mg capsule 81 mg PO QDAY valacyclovir 500 mg tablet 500 mg PO BID 30 Days Qty: 60 0RF Discharge Orders: Discharge Order (Routine); Ordered 03/25/25 Ordered By: Fidelina Osorio Patient Education: General Anesthesia (DC), OB Over the Counter Medication Information, OB /Breast Feeding Additional Instructions: Follow up appointment scheduled on March [address] Dennis. Measure blood pressures at home twice a day. Notify clinic if there are blood pressures persistently more than 150 systolics, 100s diastolics or if any symptoms such as headaches that do not go away with pain medication, visual changes such as dark spots in vision, pain in the upper abdomen-that moves towards the upper right side. Follow-up in clinic in 2 weeks for incision check and follow-up. Follow-up in 6 weeks in clinic for regular visit. Activity Level: Activity as Tolerated Activity Detail: No lifting more than 20 pounds and nothing vaginally for 6 weeks. Discharge Diet: Regular Follow Up Appointments: Provider,Not a Local [Primary Care Provider, Family Practice] Forms: MyHealth Info Instructions
[2025-03-22] MEDS: FERROUS SULFATE 325 MG TABLET PO (14:45)
[2025-03-22] MEDS: LACTATED RINGERS 1000 ML 1,000 ML 200 ML IV (15:59)
[2025-03-22 17:12] LABS: Basophils Percent Auto 0.1 % (0.0-3.0); Hematocrit 26.9 % (33.0-51.0); Hemoglobin* 8.6 gm/dL (12.0-16.0); Immature Granulocytes Pct Auto 1.7 %; Lymphocytes Percent Auto 8.8 % (20-44); Mean Corpuscular HGB Conc 32 gm/dL (32-36); Mean Corpuscular Hemoglobin 25 pg (26-34); Mean Corpuscular Volume 80 fL (80-100); Monocytes Percent Auto 6.8 % (0.0-11.0); Neutrophils Percent Auto 82.6 % (42.0-72.0); Platelet Count* 232 K/uL (140-440); Red Blood Count 3.38 m/uL (4.00-5.20)
[2025-03-22 17:22] LABS: Slide Review Reflex No
[2025-03-22] MEDS: SIMETHICONE 80 MG TAB.CHEW PO (18:25)
[2025-03-22 19:32] LABS: Alanine Aminotransferase* 40 U/L (4-35); Aspartate Amino Transferase* 152 U/L (12-35); Blood Urea Nitrogen* 6 mg/dL (5-24); Creatinine* 0.5 mg/dL (0.5-1.5); Est. Creatinine Clearance* 138.57; Estimated Glomerular Filt Rate 131 ml/min
[2025-03-22] MEDS: MAGNESIUM IV 4 GM/100 ML PIGGYBACK IVPB (20:21)
--- NOTE | 2025-03-22 20:30 | P.OBPN_ITS ---
OB - PN:Subj Subjective Date Seen: 03/22/25 Interval history: Linda is a 29 yo woman who is s/p emergent for breech presentation followed by diagnostic cystoscopy on 03/22/25 at 37 1/7 weeks' gestation in the setting of IOL for preeclampsia. Thiswas complicated by bilateral inferior extensions of the hysterotomy into the vagina and ostpartum hemorrhage secondary to tissue trauma. She had intraoperative hemorrhage of 2394 cc and received one unit of PRBCs. She suffered a corneal abrasion, confirmed on fluorescein exam by Dr. Ruby in ER. She iis currently treated with erythromycin eye ointment and tetracaine drops 1-2 drops Q 2 hrs. Narrative: I was contacted by RN with patient complaint of RUQ pain. This was severe enough to prevent her from arising from bed. She has had entirely normal BPs since delivery. She has newly elevated AST to 152 as of this afternoon. She currently has a patch over her right eye. She denies heavy bleeding. No headache. She is tolerating some PO. No flatus yet. Denies SOB. Does report the pain in RUQ radiates to her back. OB - PN: Obj Exam Physical Exam: Vital signs: Temp Pulse Resp BP Pulse Ox O2 Del Method 98.4 F 89 18 116/77 97 Room Air 03/22/25 14:48 03/22/25 16:04 03/22/25 16:04 03/22/25 16:04 03/22/25 16:04 03/22/25 16:04 Narrative: General: Pleasant, but appears pained, wearing eye patch Heart: Regular rate and rhythm, no murmur or gallop Lungs: Clear to auscultation bilaterally Abdomen: Normoactive bowel sounds. Soft, tender to palpation in RUQ, otherwise nontender, no distention, fundus well below umbilicus, silver dressing clean and dry Lower extremities: Trace edema, SCDs in place She has had 2200 cc of urine output since midnight OB - PN: Obj Data Labs Labs: Laboratory Results - last 24 hr 03/22/25 03/22/25 03/22/25 05:30 08:14 08:38 WBC 12.35 H 20.43 H RBC 4.31 3.53 L Hgb 10.9 L 9.1 L Hct 34.2 28.5 L MCV 79 L 81 MCH 25 L 26 MCHC 32 32 RDW Coeff of Shawn 12.6 12.7 Plt Count 214 255 Neut % (Auto) 80.2 H 90.0 H Lymph % (Auto) 11.3 L 5.5 L [place] % (Auto) 7.2 3.6 Eos % (Auto) 0.3 0.0 Baso % (Auto) 0.2 0.1 Neut # (Auto) 9.90 H 18.40 H Lymph # (Auto) 1.40 1.10 [place] # (Auto) 0.90 0.70 Eos # (Auto) 0.00 0.00 Baso # (Auto) 0.00 0.00 Abs Immat Gran (auto) 0.10 0.20 Imm/Tot Granulo (auto) 0.8 0.8 INR 1.06 1.11 H APTT 23 23 Fibrinogen 663 H 511 H BUN Creatinine Estimated Creat Clear Estimated GFR AST ALT Lab Acknowledgement Test Added Blood Type A Negative Antibody Screen NEGATIVE Crossmatch ([facility]) See Detail 03/22/25 03/22/25 11:39 16:50 WBC 21.16 H 17.00 H RBC 3.10 L 3.38 L Hgb 8.0 L 8.6 L Hct 24.7 L 26.9 L MCV 80 80 MCH 26 25 L MCHC 32 32 RDW Coeff of Shawn 12.8 13.0 Plt Count 229 232 Neut % (Auto) 90.0 H 82.6 H Lymph % (Auto) 4.7 L 8.8 L [place] % (Auto) 4.7 6.8 Eos % (Auto) 0.0 0.0 Baso % (Auto) 0.1 0.1 Neut # (Auto) 19.00 H 14.00 H Lymph # (Auto) 1.00 1.50 [place] # (Auto) 1.00 H 1.20 H Eos # (Auto) 0.00 0.00 Baso # (Auto) 0.00 0.00 Abs Immat Gran (auto) 0.10 0.30 Imm/Tot Granulo (auto) 0.5 1.7 INR APTT Fibrinogen BUN 6 Creatinine 0.5 Estimated Creat Clear 138.57 Estimated GFR 131 AST 152 H ALT 40 H Lab Acknowledgement Blood Type Antibody Screen Crossmatch ([facility]) OB - PN: A/P Delivery Assessment and Plan (1) Preeclampsia: Problem details: now with severe features by transaminitis and RUQ pain Status: Acute Assessment and Plan: Begin magnesium sulfate for seizure prophylaxis. HELLP labs Q 6 hours. I will have a low threshold for ordering RUQ US if pain and/or transaminases do not improve. Strict I&O (2) Proteinuria affecting : Status: Acute (3) S/P emergency section: Problem details: For breech presentation, complicated by bilateral extensions into THEA and vagina. Status: Acute Assessment and Plan: Appropriate post-op course. Will continue antibiotics for 24 hours post-op given lack of strict sterility during procedure (4) Anemia, posthemorrhagic, acute: Problem details: with QBL of greater than 2 L intraoperatively Status: Acute Assessment and Plan: Now s/p transfusion of 1 u PRBC She will have CBC Q 6 hours during magnesium infusion. Will begin ferrous sulfate for treatment. (5) Corneal abrasion: Status: Acute Assessment and Plan: Erythromycin eye ointment and tetracaine drops per ED Plan day: 0
[2025-03-22] MEDS: MAGNESIUM Infusion 40 GM/1,000 ML IV.SOLN IVPB (20:52)
[2025-03-22 23:34] LABS: Hematocrit 24.1 % (33.0-51.0); Mean Corpuscular HGB Conc 32 gm/dL (32-36); Mean Corpuscular Hemoglobin 25 pg (26-34); Mean Corpuscular Volume 81 fL (80-100); Platelet Count* 211 K/uL (140-440); Red Blood Count 2.99 m/uL (4.00-5.20); White Blood Count* 13.54 K/uL (4.50-11.00)
[2025-03-22 23:47] LABS: Hemoglobin* 7.6 gm/dL (12.0-16.0); Slide Review Reflex No
[2025-03-22 23:51] LABS: Alanine Aminotransferase* 39 U/L (4-35); Aspartate Amino Transferase* 150 U/L (12-35); Blood Urea Nitrogen* 6 mg/dL (5-24); Creatinine* 0.6 mg/dL (0.5-1.5); Est. Creatinine Clearance* 115.47; Estimated Glomerular Filt Rate 125 ml/min
[2025-03-23] VITALS (23 sets, daily range): BP systolic 77–112; BP diastolic 49–74; PULSE 73–104; RESP 14–16; TEMP 36.4–37.2; O2SAT 95–99
[2025-03-23 00:10] LABS: Magnesium* 4.3 mg/dL (1.5-2.6)
--- NOTE | 2025-03-23 00:32 | CRLHL7_ITS ---
For Patients: As a result of the Century Cures Act, medical imaging exams and procedure reports are released immediately into your electronic medical record. You may view this report before your referring provider. If you have questions, please contact your health care provider. INDICATION: Recent , abdominal pain. TECHNIQUE: CT abdomen and pelvis without contrast. COMPARISON: None. FINDINGS: Lower chest: Scattered atelectasis Liver: Normal in size and attenuation. No suspicious masses. Gallbladder and bile ducts: Prior cholecystectomy. Pancreas: Unremarkable. No mass or inflammation. Spleen: Normal in size. No masses. Adrenal glands: Normal in size. No nodules. Kidneys: Normal in size. Mild right hydroureteronephrosis without obstructing stone. No suspicious masses, or stones. GI tract: Mild colonic stool burden in the proximal colon. Normal in caliber. No sign of mass or inflammation. Vasculature: Abdominal aorta is normal in caliber. Lymph nodes: No lymphadenopathy. Peritoneum/Abdominal Wall: Postsurgical changes of with minimal expected periuterine inflammation. Ventral abdominal wall subcutaneous emphysema and trace pneumoperitoneum, not unexpected in the state. No drainable fluid collections.. Pelvis: Mildly distended bladder with Pino catheter in place. Enlarged uterus with endometrial air consistent with state. No pelvic masses. Bones: Unremarkable for age. IMPRESSION: Expected postsurgical changes of recent . Mild right hydroureteronephrosis without obstructing stone, likely related to physiologic changes in . Mild colonic stool burden the proximal colon. Otherwise, no acute intra-abdominal/pelvic abnormality, including significant hemoperitoneum as questioned. Please note that all CT scans at this facility use dose modulation, iterative reconstruction, and/or weight-based dosing when appropriate to reduce radiation dose to as low as reasonably achievable. Dictated by Uziel Vera MD @ 03/23/2025 1:21:20 AM (Electronically Signed)
[2025-03-23] MEDS: MORPHINE 2 MG/ML inj IVP ×3 (01:17→07:17)
[2025-03-23 01:54] LABS: Fibrinogen* 504 mg/dL (200-450)
[2025-03-23 01:55] LABS: INR 1.02 (0.91-1.10); Prothrombin Time 14.3 Seconds
[2025-03-23 01:56] LABS: Partial Thromboplastin Time* 23 Seconds (23-33)
[2025-03-23] MEDS: LACTATED RINGERS 1000 ML 1,000 ML 75 ML IV ×2 (01:57→14:22)
--- NOTE | 2025-03-23 02:18 | PM.OBPNVD1 ---
OB - PN:Subj Subjective Date Seen: 03/23/25 Interval history: Linda is a 29 yo woman who is s/p emergent for breech presentation followed by diagnostic cystoscopy on 03/22/25 at 37 1/7 weeks' gestation in the setting of IOL for preeclampsia without severe features. This was complicated by bilateral inferior extensions of the hysterotomy into the vagina and ostpartum hemorrhage secondary to tissue trauma. She had intraoperative hemorrhage of 2394 cc and received one unit of PRBCs. She suffered a corneal abrasion, confirmed on fluorescein exam by Dr. Ruby in ER. She iis currently treated with erythromycin eye ointment and tetracaine drops 1-2 drops Q 2 hrs. She was diagnosed with preeclampsia with severe features late in 03/22, based on RUQ pain with transaminitis. Narrative: I was notified by Linda's nurse that she was having worsening RUQ pain, unrelieved by oral medications / narcotics. She is still not using Toradol due to bleeding concerns. She recently had a BP of 80s / 50s. I ordered testing, and was able to see her after CT of abd/pelvis and coags (both of these normal as below). I had treated her with IV morphine push which helped with pain. I explained results to her. OB - PN: Obj Exam Physical Exam: Vital signs: Temp Pulse Resp BP Pulse Ox O2 Del Method 97.8 F 87 16 107/70 99 Room Air 03/23/25 00:40 03/23/25 01:12 03/23/25 01:12 03/23/25 01:12 03/23/25 01:12 03/23/25 01:12 Narrative: Gen - Alert, lying in bed OB - PN: Obj Data Labs Labs: Laboratory Results - last 24 hr 03/22/25 03/22/25 03/22/25 05:30 08:14 08:38 WBC 12.35 H 20.43 H RBC 4.31 3.53 L Hgb 10.9 L 9.1 L Hct 34.2 28.5 L MCV 79 L 81 MCH 25 L 26 MCHC 32 32 RDW Coeff of Shawn 12.6 12.7 Plt Count 214 255 Neut % (Auto) 80.2 H 90.0 H Lymph % (Auto) 11.3 L 5.5 L [place] % (Auto) 7.2 3.6 Eos % (Auto) 0.3 0.0 Baso % (Auto) 0.2 0.1 Neut # (Auto) 9.90 H 18.40 H Lymph # (Auto) 1.40 1.10 [place] # (Auto) 0.90 0.70 Eos # (Auto) 0.00 0.00 Baso # (Auto) 0.00 0.00 Abs Immat Gran (auto) 0.10 0.20 Imm/Tot Granulo (auto) 0.8 0.8 INR 1.06 1.11 H APTT 23 23 Fibrinogen 663 H 511 H BUN Creatinine Estimated Creat Clear Estimated GFR Magnesium AST ALT Lab Acknowledgement Test Added Blood Type A Negative Antibody Screen NEGATIVE Crossmatch ([facility]) See Detail 03/22/25 03/22/25 03/22/25 11:39 16:50 23:29 WBC 21.16 H 17.00 H 13.54 H RBC 3.10 L 3.38 L 2.99 L Hgb 8.0 L 8.6 L 7.6 L* Hct 24.7 L 26.9 L 24.1 L MCV 80 80 81 MCH 26 25 L 25 L MCHC 32 32 32 RDW Coeff of Shawn 12.8 13.0 Plt Count 229 232 211 Neut % (Auto) 90.0 H 82.6 H Lymph % (Auto) 4.7 L 8.8 L [place] % (Auto) 4.7 6.8 Eos % (Auto) 0.0 0.0 Baso % (Auto) 0.1 0.1 Neut # (Auto) 19.00 H 14.00 H Lymph # (Auto) 1.00 1.50 [place] # (Auto) 1.00 H 1.20 H Eos # (Auto) 0.00 0.00 Baso # (Auto) 0.00 0.00 Abs Immat Gran (auto) 0.10 0.30 Imm/Tot Granulo (auto) 0.5 1.7 INR APTT Fibrinogen BUN 6 6 Creatinine 0.5 0.6 Estimated Creat Clear 138.57 115.47 Estimated GFR 131 125 Magnesium 4.3 H* AST 152 H 150 H ALT 40 H 39 H Lab Acknowledgement Blood Type Antibody Screen Crossmatch ([facility]) 03/23/25 01:15 WBC RBC Hgb Hct MCV MCH MCHC RDW Coeff of Shawn Plt Count Neut % (Auto) Lymph % (Auto) [place] % (Auto) Eos % (Auto) Baso % (Auto) Neut # (Auto) Lymph # (Auto) [place] # (Auto) Eos # (Auto) Baso # (Auto) Abs Immat Gran (auto) Imm/Tot Granulo (auto) INR 1.02 APTT 23 Fibrinogen 504 H BUN Creatinine Estimated Creat Clear Estimated GFR Magnesium AST ALT Lab Acknowledgement Blood Type Antibody Screen Crossmatch ([facility]) Imaging CT scan - pelvis: Attestation: I have reviewed the pertinent imaging results. My impression: No obvious lesions of liver; colon distended. Radiologist's impression: IMPRESSION: Expected postsurgical changes of recent . Mild right hydroureteronephrosis without obstructing stone, likely related to physiologic changes in . Mild colonic stool burden the proximal colon. Otherwise, no acute intra-abdominal/pelvic abnormality, including significant hemoperitoneum as questioned. OB - PN: A/P Delivery Assessment and Plan (1) Preeclampsia: Problem details: now with severe features by transaminitis and RUQ pain Status: Acute Assessment and Plan: BPs are actually low currently. Tranaminases were elevated but stable at last check. Continue mag sulfate infusion. (2) Proteinuria affecting : Status: Acute (3) S/P emergency section: Problem details: For breech presentation, complicated by bilateral extensions into THEA and vagina. Status: Acute Assessment and Plan: postoperative pain as below (4) Anemia, posthemorrhagic, acute: Problem details: with QBL of greater than 2 L intraoperatively, received 2 units PRBCs Status: Acute Assessment and Plan: She has received 1 u PRBC. She continues to have BPs that are occasionally below 100 systolic. I will transfuse an additional unit. There is no blood in the abdomen and her vaginal bleeding is appropriate. We will repeat CBC at 0500 with her preeclampsia labs. (5) Corneal abrasion: Status: Acute Assessment and Plan: Continue erythromycin and tetracaine eye ointments. (6) Postoperative pain: Status: Acute Assessment and Plan: This is likely related to bowel cramping. We will begin using simethicone. I still must hold the Toradol until I know if her Hb is stable. I will treat pain with morphine 2 mg IV Q h prn overnight, and repeat CBC at 0500. Plan day: 1
[2025-03-23] MEDS: SIMETHICONE 80 MG TAB.CHEW PO ×4 (02:32→20:50)
[2025-03-23 06:59] LABS: Hematocrit 26.2 % (33.0-51.0); Hemoglobin* 8.4 gm/dL (12.0-16.0); Mean Corpuscular HGB Conc 32 gm/dL (32-36); Mean Corpuscular Hemoglobin 26 pg (26-34); Mean Corpuscular Volume 82 fL (80-100); Platelet Count* 194 K/uL (140-440); Red Blood Count 3.21 m/uL (4.00-5.20); White Blood Count* 11.13 K/uL (4.50-11.00)
[2025-03-23 07:15] LABS: Slide Review Reflex No
[2025-03-23 07:20] LABS: Alanine Aminotransferase* 37 U/L (4-35); Aspartate Amino Transferase* 126 U/L (12-35); Blood Urea Nitrogen* 4 mg/dL (5-24); Creatinine* 0.5 mg/dL (0.5-1.5); Est. Creatinine Clearance* 138.57; Estimated Glomerular Filt Rate 131 ml/min
[2025-03-23 07:38] LABS: Magnesium* 5.1 mg/dL (1.5-2.6)
[2025-03-23] MEDS: CEFAZOLIN 2 GM in 0.9 % SODIUM CHLORIDE Mini-bag 100 ML IVPB ×2 (07:46→15:46)
--- NOTE | 2025-03-23 07:56 | P.OBPN_ITS ---
OB - PN:Subj Subjective Date Seen: 03/23/25 Interval history: Linda is a 29 yo woman who is s/p emergent for breech presentation followed by diagnostic cystoscopy on 03/22/25 at 37 1/7 weeks' gestation in the setting of IOL for preeclampsia without severe features. This was complicated by bilateral inferior extensions of the hysterotomy into the vagina and ostpartum hemorrhage secondary to tissue trauma. She had intraoperative hemorrhage of 2394 cc and received one unit of PRBCs. She received a second unit of PRBCs overnight. She had uncontrolled pain last evening as well, and a CT of the abdomen/pelvis was performed which was negative for intra-abdominal/intraperitoneal bleeding. Hemoglobin is improved this morning. Pain control is better. She is currently receiving IV morphine as needed in addition to oral oxycodone and tylenol. Toradol had been held after surgery due to concerns about bleeding. She suffered a corneal abrasion, confirmed on fluorescein exam by Dr. Ruby in ER. She is currently treated with erythromycin eye ointment and tetracaine drops 1-2 drops Q 2 hrs. Her eye patch is a little loose this morning, and she is having a little bit of increased discomfort due to being able to open her eye slightly. She is confident that once she applies the ointment and drops and the patch is reapplied that the pain will improve. She was diagnosed with preeclampsia with severe features late in 03/22, based on RUQ pain with transaminitis. LFTs are mildly improved this morning. She remains on a magnesium sulfate drip until this evening. Urine output has been excellent. [place] infant status: OB - PN: Obj Exam Physical Exam: Vital signs: Temp Pulse Resp BP Pulse Ox O2 Del Method 97.5 F L 90 16 93/56 L 97 Room Air 03/23/25 05:50 03/23/25 07:52 03/23/25 07:52 03/23/25 07:52 03/23/25 07:52 03/23/25 07:52 Constitutional: Constitutional: no acute distress Routine Neck Exam: Neck: Present normal inspection Routine Respiratory Exam: Respiratory: Present CTA bilaterally; Absent respiratory distress Routine Cardiovascular Exam: Cardiovascular: Present RRR Routine Abdominal Exam: Abdominal: Present soft; Absent tenderness Fundus: Present firm (U/2) Routine Extremities Exam: Extremities: Present normal inspection and pedal edema; Absent calf tenderness Routine Neurological Exam: Neurological: Present alert and oriented X3 Routine Psychiatric Exam: Psychiatric: Present normal affect Wound Management: Method: suture Examination: Present clean and dry; Absent erythematous Comments: Pfannenstiel incision, Silver Mepiliex dressing present OB - PN: Obj Data Labs Labs: Laboratory Results - last 24 hr 03/22/25 03/22/25 03/22/25 05:30 08:14 08:38 WBC 20.43 H RBC 3.53 L Hgb 9.1 L Hct 28.5 L MCV 81 MCH 26 MCHC 32 RDW Coeff of Shawn 12.7 Plt Count 255 Neut % (Auto) 90.0 H Lymph % (Auto) 5.5 L [place] % (Auto) 3.6 Eos % (Auto) 0.0 Baso % (Auto) 0.1 Neut # (Auto) 18.40 H Lymph # (Auto) 1.10 [place] # (Auto) 0.70 Eos # (Auto) 0.00 Baso # (Auto) 0.00 Abs Immat Gran (auto) 0.20 Imm/Tot Granulo (auto) 0.8 INR 1.11 H APTT 23 Fibrinogen 511 H BUN Creatinine Estimated Creat Clear Estimated GFR Magnesium AST ALT Lab Acknowledgement Test Added Blood Type A Negative Antibody Screen NEGATIVE Crossmatch ([facility]) See Detail 03/22/25 03/22/25 03/22/25 11:39 16:50 23:29 WBC 21.16 H 17.00 H 13.54 H RBC 3.10 L 3.38 L 2.99 L Hgb 8.0 L 8.6 L 7.6 L* Hct 24.7 L 26.9 L 24.1 L MCV 80 80 81 MCH 26 25 L 25 L MCHC 32 32 32 RDW Coeff of Shawn 12.8 13.0 Plt Count 229 232 211 Neut % (Auto) 90.0 H 82.6 H Lymph % (Auto) 4.7 L 8.8 L [place] % (Auto) 4.7 6.8 Eos % (Auto) 0.0 0.0 Baso % (Auto) 0.1 0.1 Neut # (Auto) 19.00 H 14.00 H Lymph # (Auto) 1.00 1.50 [place] # (Auto) 1.00 H 1.20 H Eos # (Auto) 0.00 0.00 Baso # (Auto) 0.00 0.00 Abs Immat Gran (auto) 0.10 0.30 Imm/Tot Granulo (auto) 0.5 1.7 INR APTT Fibrinogen BUN 6 6 Creatinine 0.5 0.6 Estimated Creat Clear 138.57 115.47 Estimated GFR 131 125 Magnesium 4.3 H* AST 152 H 150 H ALT 40 H 39 H Lab Acknowledgement Blood Type Antibody Screen Crossmatch ([facility]) 03/23/25 03/23/25 01:15 06:43 WBC 11.13 H RBC 3.21 L Hgb 8.4 L Hct 26.2 L MCV 82 MCH 26 MCHC 32 RDW Coeff of Shawn Plt Count 194 Neut % (Auto) Lymph % (Auto) [place] % (Auto) Eos % (Auto) Baso % (Auto) Neut # (Auto) Lymph # (Auto) [place] # (Auto) Eos # (Auto) Baso # (Auto) Abs Immat Gran (auto) Imm/Tot Granulo (auto) INR 1.02 APTT 23 Fibrinogen 504 H BUN 4 L Creatinine 0.5 Estimated Creat Clear 138.57 Estimated GFR 131 Magnesium 5.1 H* AST 126 H ALT 37 H Lab Acknowledgement Blood Type Antibody Screen Crossmatch ([facility]) OB - PN: A/P Delivery Assessment and Plan (1) Preeclampsia: Problem details: now with severe features by transaminitis and RUQ pain Status: Acute Assessment and Plan: On mag for 24 hours (2) Proteinuria affecting : Status: Acute (3) S/P emergency section: Problem details: For breech presentation, complicated by bilateral extensions into THEA and vagina. Status: Acute (4) Anemia, posthemorrhagic, acute: Problem details: with QBL of greater than 2 L intraoperatively, received 2 units PRBCs Status: Acute (5) Corneal abrasion: Status: Acute (6) Postoperative pain: Status: Acute Assessment and Plan: Okay to begin Toradol this morning (03/23) Plan day: 1 Plan: routine care Comments: 1. D/C mag and serial labs after 24 hours 2. Change colace to BID dosing 3. Begin ambulation as tolerated 4. Last 2 doses of ordered antibiotics (cephazolin 2 g 28h) were not given due to nursing error. Will re-order and administer today.
[2025-03-23] MEDS: KETOROLAC 30 MG/ML inj IVP ×3 (08:18→20:53)
[2025-03-23] MEDS: DOCUSATE SODIUM 100 MG CAPSULE PO ×2 (08:18→20:50)
[2025-03-23] MEDS: ERYTHROMYCIN OPHTH OINT 3.5 GM 1 APPLIC EYE-BOTH ×3 (08:36→20:52)
[2025-03-23 11:18] LABS: Hematocrit 27.6 % (33.0-51.0); Hemoglobin* 8.9 gm/dL (12.0-16.0); Mean Corpuscular HGB Conc 32 gm/dL (32-36); Mean Corpuscular Hemoglobin 26 pg (26-34); Mean Corpuscular Volume 81 fL (80-100); Platelet Count* 202 K/uL (140-440); Red Blood Count 3.41 m/uL (4.00-5.20); White Blood Count* 11.12 K/uL (4.50-11.00)
[2025-03-23 11:21] LABS: Slide Review Reflex No
[2025-03-23 11:40] LABS: Alanine Aminotransferase* 42 U/L (4-35); Aspartate Amino Transferase* 138 U/L (12-35); Blood Urea Nitrogen* 4 mg/dL (5-24); Creatinine* 0.6 mg/dL (0.5-1.5); Est. Creatinine Clearance* 115.47; Estimated Glomerular Filt Rate 125 ml/min
[2025-03-23 11:42] LABS: Magnesium* 5.9 mg/dL (1.5-2.6)
[2025-03-23] MEDS: ACETAMINOPHEN 500 MG TABLET 1000 MG PO ×2 (12:25→19:58)
[2025-03-23] MEDS: OXYCODONE 5 MG TABLET PO (12:56)
[2025-03-23 14:43] LABS: Fibrinogen* 521 mg/dL (200-450); INR 0.96 (0.91-1.10); Partial Thromboplastin Time* 25 Seconds (23-33); Prothrombin Time 13.5 Seconds
[2025-03-23] MEDS: MAGNESIUM Infusion 40 GM/1,000 ML IV.SOLN IVPB (15:46)
[2025-03-23 16:35] LABS: Rapid Plasma Reagin (RPR) Non Reactive (Non Reactive)
[2025-03-23 17:15] LABS: Mean Corpuscular HGB Conc 32 gm/dL (32-36); Mean Corpuscular Hemoglobin 26 pg (26-34)
[2025-03-23 18:24] LABS: Alanine Aminotransferase* 46 U/L (4-35); Aspartate Amino Transferase* 136 U/L (12-35); Blood Urea Nitrogen* 5 mg/dL (5-24); Creatinine* 0.6 mg/dL (0.5-1.5); Est. Creatinine Clearance* 115.47; Estimated Glomerular Filt Rate 125 ml/min
[2025-03-23 18:25] LABS: Magnesium* 5.8 mg/dL (1.5-2.6)
[2025-03-23 20:38] LABS: Hematocrit 27.9 % (33.0-51.0); Mean Corpuscular Volume 82 fL (80-100); Platelet Count* 236 K/uL (140-440); Red Blood Count 3.42 m/uL (4.00-5.20); White Blood Count* 12.05 K/uL (4.50-11.00)
[2025-03-23 20:39] LABS: Slide Review Reflex No
[2025-03-23 23:33] LABS: Hematocrit 24.9 % (33.0-51.0); Hemoglobin* 8.1 gm/dL (12.0-16.0); Mean Corpuscular HGB Conc 33 gm/dL (32-36); Mean Corpuscular Hemoglobin 27 pg (26-34); Mean Corpuscular Volume 82 fL (80-100); Platelet Count* 220 K/uL (140-440); Red Blood Count 3.03 m/uL (4.00-5.20); White Blood Count* 9.87 K/uL (4.50-11.00)
[2025-03-23 23:40] LABS: Slide Review Reflex No
[2025-03-23 23:51] LABS: Alanine Aminotransferase* 41 U/L (4-35); Aspartate Amino Transferase* 108 U/L (12-35); Blood Urea Nitrogen* 6 mg/dL (5-24); Creatinine* 0.6 mg/dL (0.5-1.5); Est. Creatinine Clearance* 115.47; Estimated Glomerular Filt Rate 125 ml/min
[2025-03-24] MEDS: SIMETHICONE 80 MG TAB.CHEW PO (00:29)
[2025-03-24 01:57] VITALS: BP 98/64; PULSE 69; RESP 16; TEMP 36.9; O2SAT 93
[2025-03-24] MEDS: KETOROLAC 30 MG/ML inj IVP (02:06)
[2025-03-24] MEDS: ACETAMINOPHEN 500 MG TABLET 1000 MG PO ×3 (02:09→17:17)
[2025-03-24 05:55] VITALS: BP 105/63; PULSE 92; RESP 16; TEMP 36.8
[2025-03-24 06:39] LABS: Hematocrit 28.5 % (33.0-51.0); Hemoglobin* 9.1 gm/dL (12.0-16.0); Mean Corpuscular HGB Conc 32 gm/dL (32-36); Mean Corpuscular Hemoglobin 26 pg (26-34); Mean Corpuscular Volume 83 fL (80-100); Platelet Count* 262 K/uL (140-440); Red Blood Count 3.45 m/uL (4.00-5.20); White Blood Count* 10.83 K/uL (4.50-11.00)
[2025-03-24 06:43] LABS: Slide Review Reflex No
[2025-03-24 06:58] LABS: Alanine Aminotransferase* 44 U/L (4-35); Aspartate Amino Transferase* 112 U/L (12-35); Blood Urea Nitrogen* 5 mg/dL (5-24); Creatinine* 0.6 mg/dL (0.5-1.5); Est. Creatinine Clearance* 115.47; Estimated Glomerular Filt Rate 125 ml/min
[2025-03-24] MEDS: DOCUSATE SODIUM 100 MG CAPSULE PO ×2 (08:07→20:49)
[2025-03-24] MEDS: ERYTHROMYCIN OPHTH OINT 3.5 GM 1 APPLIC EYE-BOTH ×3 (08:08→20:49)
[2025-03-24 08:18] VITALS: BP 107/70; PULSE 89; RESP 16; TEMP 36.7; O2SAT 98
[2025-03-24] MEDS: IBUPROFEN 600 MG TABLET PO ×3 (08:43→20:49)
--- NOTE | 2025-03-24 09:51 | P.OBPN_ITS ---
OB - PN:Subj Subjective Date Seen: 03/24/25 Narrative: The patient feels better today.? The pain is well controlled with current medications.? She has no new complaints.? Urinary output is adequate and she is voiding without difficulty.? Has a good appetite, is tolerating a general diet, is passing flatus, and has not had a bowel movement.? Has scant amount of rubra lochia.? She is ambulating well. She is and reports it is going well.?Blood pressures have remianed normal. No [employer] E[employer] TE[employer]ER irritability symptoms. OB - PN: Obj Exam Physical Exam: Vital signs: Temp Pulse Resp BP Pulse Ox O2 Del Method 98.0 F 89 16 107/70 98 Room Air 03/24/25 08:18 03/24/25 08:18 03/24/25 08:18 03/24/25 08:18 03/24/25 08:18 03/24/25 08:18 Narrative: GENERAL APPEARANCE:? normal affect, alert, no distress. Tearful. MOOD:? appropriate CHEST:? clear to auscultation HEART:? regular rate and rhythm ABDOMEN:? soft, non-tender the uterine fundus is At Umbilicus, Midline and is appropriate for the stage of recovery. Incision covered by silver dressing. EXTREMITIES:?Bilateral pitting edema +2. OB - PN: Obj Data Labs Labs: Laboratory Results - last 24 hr 03/21/25 03/22/25 03/23/25 13:43 16:50 06:43 WBC RBC Hgb Hct MCV MCH MCHC Plt Count INR 0.96 APTT 25 Fibrinogen 521 H BUN Creatinine Estimated Creat Clear Estimated GFR Magnesium AST ALT RPR Screen Non Reactive Screen Negative 03/23/25 03/23/25 03/23/25 11:07 17:02 23:23 WBC 11.12 H 12.05 H 9.87 RBC 3.41 L 3.42 L 3.03 L Hgb 8.9 L 9.0 L 8.1 L Hct 27.6 L 27.9 L 24.9 L MCV 81 82 82 MCH 26 26 27 MCHC 32 32 33 Plt Count 202 236 220 INR APTT Fibrinogen BUN 4 L 5 6 Creatinine 0.6 0.6 0.6 Estimated Creat Clear 115.47 115.47 115.47 Estimated GFR 125 125 125 Magnesium 5.9 H* 5.8 H* 4.0 H AST 138 H 136 H 108 H ALT 42 H 46 H 41 H RPR Screen Screen 03/24/25 06:24 WBC 10.83 RBC 3.45 L Hgb 9.1 L Hct 28.5 L MCV 83 MCH 26 MCHC 32 Plt Count 262 INR APTT Fibrinogen BUN 5 Creatinine 0.6 Estimated Creat Clear 115.47 Estimated GFR 125 Magnesium AST 112 H ALT 44 H RPR Screen Screen OB - PN: A/P Delivery Assessment and Plan (1) Preeclampsia: Problem details: now with severe features by transaminitis and RUQ pain Status: Acute Assessment and Plan: Labs 03/24/25 at 0630: Hgb:9.1 Platelets: 262,000 Bun: 5 Creatinine: 0.6 AST: 112, 108, 136,152- on decreasing trend ALT: 44, 41 Magnesium discontinued last night at around 8:30pm. BPs have remained normal, U/O normal, no [employer] E[employer] TE[employer]ER irritability symptoms. (2) Proteinuria affecting : Status: Acute (3) S/P emergency section: Problem details: For breech presentation, complicated by bilateral extensions into THEA and vagina. Status: Acute (4) Anemia, posthemorrhagic, acute: Problem details: with QBL of greater than 2 L intraoperatively, received 2 units PRBCs Status: Acute Assessment and Plan: Hemoglobin this am 9.1mg/dL. Tolerating more ambulation, no SOB, lightheadedness, diziness, heart palpiatations (5) Corneal abrasion: Status: Acute Assessment and Plan: Much improved. (6) Postoperative pain: Status: Acute Assessment and Plan: Well managed today. Plan day: 2 Plan: routine care Comments: Today we will focus on ambulation, continued routine post op cares. Recommend continued observation for today, close monitoring of BPs and will plan to repeat labs tomorrow am. Will continue mood support and identify areas where we can further help.
[2025-03-24] MEDS: FERROUS SULFATE 325 MG TABLET PO (11:25)
[2025-03-24 11:26] VITALS: BP 101/68; PULSE 78; RESP 16; TEMP 36.8; O2SAT 96
[2025-03-24 16:49] VITALS: BP 107/56; PULSE 75; RESP 16; TEMP 37.1; O2SAT 96
[2025-03-24 20:52] VITALS: BP 117/73; PULSE 76; RESP 18; O2SAT 97
[2025-03-25 00:17] VITALS: BP 97/60; PULSE 71; RESP 18; O2SAT 97
[2025-03-25] MEDS: ACETAMINOPHEN 500 MG TABLET 1000 MG PO ×2 (00:19→06:23)
[2025-03-25] MEDS: IBUPROFEN 600 MG TABLET PO ×2 (02:30→08:41)
[2025-03-25 04:23] VITALS: BP 96/67; PULSE 85; RESP 18; TEMP 37; O2SAT 97
[2025-03-25 06:21] LABS: Basophils Absolute Auto 0.05 K/uL (0.00-0.30); Basophils Percent Auto 0.6 % (0.0-3.0); Eosinophils Absolute Auto 0.37 K/uL (0.00-0.50); Eosinophils Percent Auto 4.1 % (0.0-7.0); Hemoglobin* 8.8 gm/dL (12.0-16.0); Immature Granulocytes Abs Auto 0.15 K/uL (0.00-0.30); Immature Granulocytes Pct Auto 1.7 %; Lymphocytes Absolute Auto 2.23 K/uL (0.90-2.90); Lymphocytes Percent Auto 24.9 % (20-44); Mean Corpuscular HGB Conc 31 gm/dL (32-36); Mean Corpuscular Hemoglobin 26 pg (26-34); Mean Corpuscular Volume 84 fL (80-100); Neutrophils Absolute Auto 5.63 K/uL (1.7-7.0); Neutrophils Percent Auto 62.7 % (42.0-72.0); Platelet Count* 263 K/uL (140-440); RDW Coefficient of Variation % 13.9 % (11.5-15.5); Red Blood Count 3.34 m/uL (4.00-5.20); White Blood Count* 8.97 K/uL (4.50-11.00)
[2025-03-25 06:22] LABS: Slide Review Reflex No
[2025-03-25 06:38] LABS: Alanine Aminotransferase* 43 U/L (4-35); Aspartate Amino Transferase* 94 U/L (12-35); Blood Urea Nitrogen* 6 mg/dL (5-24); Creatinine* 0.6 mg/dL (0.5-1.5); Est. Creatinine Clearance* 115.47; Estimated Glomerular Filt Rate 125 ml/min
[2025-03-25] MEDS: DOCUSATE SODIUM 100 MG CAPSULE PO (08:41)
--- NOTE | 2025-03-25 08:42 | P.DS_ITS ---
DS: Providers Provider Time Seen by Provider: 08:42 Date Seen: 03/25/25 Date of admission: 03/21/25 11:55 Primary care physician: Not a Local Provider Admitting Clinician: Juanis Dennis MD Attending Physician on discharge: Maggie Osorio MD Date of Discharge: 03/25/25 DS: Diagnosis Discharge Diagnosis (1) Corneal abrasion: Status: Acute (2) Anemia, posthemorrhagic, acute: Status: Acute Problem details: with QBL of greater than 2 L intraoperatively, received 2 units PRBCs (3) S/P emergency section: Status: Acute Problem details: For breech presentation, complicated by bilateral extensions into THEA and vagina. (4) Preeclampsia: Status: Acute Problem details: now with severe features by transaminitis and RUQ pain (5) Proteinuria affecting : Status: Acute Exam Narrative: Exam Narrative: GENERAL APPEARANCE:? normal affect, alert, no distress MOOD:? appropriate CHEST:? clear to auscultation HEART:? regular rate and rhythm ABDOMEN:? soft, non-tender the uterine fundus is At Umbilicus, Midline and is appropriate for the stage of recovery. EXTREMITIES:? normal and bilateral pitting edema +1 Incision: silver dressing in place, clean and dry Const: Vital Signs, click to edit/add: Vital Signs - 24 hr 03/24/25 11:26 03/24/25 16:49 03/24/25 20:52 Temperature 98.2 F 98.8 F Pulse Rate [Left P ulse Oximeter] 78 75 76 Respiratory Rate 16 16 18 Blood Pressure [Ri ght Arm] 101/68 107/56 L 117/73 Pulse Oximetry 96 96 97 Oxygen Delivery Me thod Room Air Room Air Room Air 03/25/25 00:17 03/25/25 04:23 Temperature 98.6 F Pulse Rate [Left P ulse Oximeter] 71 85 Respiratory Rate 18 18 Blood Pressure [Ri ght Arm] 97/60 96/67 Pulse Oximetry 97 97 Oxygen Delivery Me thod Room Air Room Air OB - DS: Summary Hospital Course Hospital Course: The patient is a 29 year old G 4 P 3013 at 37 1/7 weeks gestation that was admitted to the Center on 03/21/25 for IOL due to preeclampsia diagnosis. She had a complicated delivery. malpresentation diagnosed intrapartum, needing emergency delivery under general anesthesia. Surgery complicated by hysterotomy vaginal extensions and PPH. Cystoscopy was completed intra op and normal. anemia treated with 2 units of PRBCs. She was also diagnosed with superimposed severe features on POD 0 due to transaminitis in the setting of known preeclampsia. Patient received magnesium sulfate infusion for 24 hours. Has completed monitoring for 24 hours after discontinuing magnesium infusion and blood pressures have remained normal, no [employer] irritability symptoms and transaminitis has been improving and on decreasing trend. She delivered a viable male infant. She is . She is feeling much better, mood mendez she feels like she has been able to communicate and answer all of their questions, they have great family support and will continue close monitoroing. the patient has done well, she is ready to go home today. Peripartum Data Infant delivery method: Primary C/S; Labored Procedures: Procedures Operation Date: 03/22/25 05:30 Actual Procedure Side Surgeon p PRIMARY Section Juanis Dennis MD s DIADNOSTIC CystoSCOPY Juanis Dennis MD complications: transfusion and other Gender: Male Discharge Plan: Home Status at Discharge Functional status at discharge: independent ambulation Overall status at discharge: patient is progressing back to baseline Time Spent with Patient Time attestation: Total time spent providing and/or coordinating discharge services: Time spent: Less than 30 minutes Discharge Plan Discharge Disposition: Home, Self-Care Date of Admission: 03/21/25 11:55 Primary Care Provider: Provider,Not a Local Condition: Stable Anticipated Discharge Date/Time: 03/25/25 08:57 Discharge Medications: New acetaminophen 500 mg Tablet 1,000 mg PO Q6H PRN (Reason: Pain) Qty: 30 0RF ferrous sulfate 325 mg (65 mg iron) Tablet 325 mg PO Q48H Qty: 60 0RF docusate sodium 100 mg Capsule 100 mg PO BID Qty: 30 0RF ibuprofen 600 mg Tablet 600 mg PO Q6H PRN (Reason: Pain) Qty: 30 0RF oxycodone 5 mg Tablet 5 - 10 mg PO Q4H PRN (Reason: Pain) Qty: 10 0RF Continued [id number] 3 fatty no.1 27-1-300 mg capsule 1 cap PO DAILY betamethasone dipropionate 0.05 % cream 1 applic topical QDAY PRN omeprazole 20 mg capsule,delayed release(DR/EC) 20 mg PO QDAY betamethasone dipropionate 0.05 % ointment 1 applic topical QDAY PRN (Reason: skin irritation) Qty: 45 0RF Discontinued aspirin 81 mg capsule 81 mg PO QDAY valacyclovir 500 mg tablet 500 mg PO BID 30 Days Qty: 60 0RF Discharge Orders: Discharge Order (Routine); Ordered 03/25/25 Ordered By: Fidelina Osorio Patient Education: General Anesthesia (DC), OB Over the Counter Medication Information, OB /Breast Feeding Additional Instructions: Follow up appointment scheduled on March [address] Dennis. Measure blood pressures at home twice a day. Notify clinic if there are blood pressures persistently more than 150 systolics, 100s diastolics or if any symptoms such as headaches that do not go away with pain medication, visual changes such as dark spots in vision, pain in the upper abdomen-that moves towards the upper right side. Follow-up in clinic in 2 weeks for incision check and follow-up. Follow-up in 6 weeks in clinic for regular visit. Activity Level: Activity as Tolerated Activity Detail: No lifting more than 20 pounds and nothing vaginally for 6 weeks. Discharge Diet: Regular Follow Up Appointments: Provider,Not a Local [Primary Care Provider, Family Practice] Forms: Hiddenbed Info Instructions
[2025-03-25 08:45] VITALS: BP 123/82; PULSE 80; RESP 18; TEMP 37.1; O2SAT 98
== END 2025-03-25 10:38 | disposition home or self-care (01) | DRG 787 ==
LOC: OB OUT 11:55 → OB 11:55
PROVIDERS: Advanced Practice Midwife; Obstetrics & Gynecology; Admitting Provider Obstetrics & Gynecology; Visit Provider Obstetrics & Gynecology
PROC: 10D00Z1 Extraction of Products of Conception, Low, Open Approach (ICD-10-PCS; CPT 59514; principal; 2025-03-22 05:30)
PROC: 0VT08ZZ Resection of Prostate, Via Natural or Artificial Opening Endoscopic (ICD-10-PCS; CPT 52601; 2025-03-22 05:30)
DX: O14.04 Mild to moderate pre-eclampsia, complicating childbirth (principal); D62 Acute posthemorrhagic anemia; N99.71 Accidental puncture and laceration of a genitourinary system organ or structure during a genitourinary system procedure; O98.32 Other infections with a predominantly sexual mode of transmission complicating childbirth; O90.81 Anemia of the puerperium; O72.1 Other immediate postpartum hemorrhage; O14.15 Severe pre-eclampsia, complicating the puerperium; G89.18 Other acute postprocedural pain; S05.01XA Injury of conjunctiva and corneal abrasion without foreign body, right eye, initial encounter; O32.1XX0 Maternal care for breech presentation, not applicable or unspecified; A60.00 Herpesviral infection of urogenital system, unspecified; O12.14 Gestational proteinuria, complicating childbirth; O26.03 Excessive weight gain in pregnancy, third trimester; O99.344 Other mental disorders complicating childbirth; F41.9 Anxiety disorder, unspecified; Z37.0 Single live birth; Z3A.37 37 weeks gestation of pregnancy
CPT/HCPCS: 01967; 01968; 36415; 36430; 59200; 64486; 74176; 76942; 82565; 82570; 83735; 84156; 84450; 84460; 84520; 85018; 85025; 85027; 85384; 85461; 85610; 85730; 86592; 86850; 86900; 86901; 86922; 99140; 99281; A4314; A9270; J0330; J0456; J0665; J0666; J0690; J1100; J1885; J2270; J2371; J2405; J2590; J2704; J2791; J2795; J3010; J3475; J3490; J7050; J7120; P9016

== ENCOUNTER 2025-03-28 10:00 | Outpatient (CLI) | payer OTHER, SELFPAY | END 2025-03-28 10:01 | disposition home or self-care (01) | PROVIDERS: Visit Provider Obstetrics & Gynecology | DX: O14.93 Unspecified pre-eclampsia, third trimester (principal); Z3A.38 38 weeks gestation of pregnancy | CPT/HCPCS: 84450; 84460 ==

== ENCOUNTER 2025-04-04 11:58 | Outpatient (CLI) | payer OTHER, SELFPAY | END 2025-04-04 11:59 | disposition home or self-care (01) | PROVIDERS: Visit Provider Registered Nurse | DX: O14.95 Unspecified pre-eclampsia, complicating the puerperium (principal) | CPT/HCPCS: 82565; 84450; 84460; 84520 ==

== ENCOUNTER 2025-06-04 08:49 | Outpatient (CLI) | payer OTHER, SELFPAY | END 2025-06-04 08:50 | disposition home or self-care (01) | LOC: NFLDREF 06-07 10:37 | PROVIDERS: Visit Provider Internal Medicine Nephrology | DX: O12.10 Gestational proteinuria, unspecified trimester (principal) | CPT/HCPCS: 80069; 82043; 82570; 84450; 84460 ==

== ENCOUNTER 2025-06-05 11:00 | Outpatient (CLI) | payer OTHER, SELFPAY | END 2025-06-05 11:01 | disposition home or self-care (01) | LOC: NFLDREF 06-11 07:27 | PROVIDERS: Visit Provider Internal Medicine Nephrology | DX: O12.10 Gestational proteinuria, unspecified trimester (principal) | CPT/HCPCS: 82570; 84156 ==

== ENCOUNTER 2025-06-12 09:16 | Outpatient (CLI) | payer OTHER, SELFPAY | END 2025-06-12 09:17 | disposition home or self-care (01) | PROVIDERS: Visit Provider Internal Medicine Nephrology | DX: R74.8 Abnormal levels of other serum enzymes (principal); Z13.6 Encounter for screening for cardiovascular disorders; Z13.1 Encounter for screening for diabetes mellitus | CPT/HCPCS: 80074; 84450; 84460; 86015; 86039; 86381; 86704 ==

== ENCOUNTER 2025-06-29 10:31 | Outpatient (CLI) | payer OTHER, SELFPAY | END 2025-06-29 10:32 | disposition home or self-care (01) | PROVIDERS: Visit Provider Nurse Practitioner Family | DX: R74.8 Abnormal levels of other serum enzymes (principal); Z13.6 Encounter for screening for cardiovascular disorders; Z13.1 Encounter for screening for diabetes mellitus | CPT/HCPCS: 80061; 82947; 84450; 84460 ==

== ENCOUNTER 2025-09-07 16:14 | Outpatient (CLI) | payer OTHER, SELFPAY | END 2025-09-07 16:15 | disposition home or self-care (01) | LOC: NFLDREF 09-12 11:47 | PROVIDERS: PCP Nurse Practitioner Family; Referring Provider Nurse Practitioner Family; Visit Provider Nurse Practitioner Family | DX: R74.8 Abnormal levels of other serum enzymes (principal) | CPT/HCPCS: 84075; 84450; 84460 ==